=== PATIENT | male | born 1950 | race Caucasian/White ===

== ENCOUNTER 2017-03-14 13:32 | Inpatient (IN) | payer SELFPAY ==
[~2017-03-14] VITALS: Ht 165.1 cm; Wt 112.7 kg
[2017-03-14] MEDS ORDERED: [UNRECOGNIZED DRUG - OTHER] (13:52)
[2017-03-14] MEDS ORDERED: NS 500 ML IV ONE (14:45)
[2017-03-14] MEDS ORDERED: KETOROLAC 30 MG/ML VIAL (J1885) IV ONE (14:45)
[2017-03-14] MEDS ORDERED: GASTROGRAFIN SOLUTION 30ML (Q9963) PO ONE (15:00)
[2017-03-14 15:09] LABS: BASO % 0.2 % (0.0-1.0); EOS % 0.4 % (0.0-3.0); LARGE UNSTAINED CELL # 0.1 K/mm3 (0.0-0.4); LYMPH # 0.7 K/mm3 (1.5-4.5); LYMPH % 8.4 % (24.0-44.0); MEAN CORPUSCULAR HEMOGLOBIN 29.4 pg (27.0-33.0); MEAN CORPUSCULAR HGB CONC 34.5 g/dl (32.0-36.5); MEAN CORPUSCULAR VOLUME 85.2 fl (80.0-96.0); MONO # 0.2 K/mm3 (0.0-0.8); MONO % 2.6 % (0.0-5.0); NEUTROPHILS # 7.4 K/mm3 (1.8-7.7); NEUTROPHILS % 87.4 % (36.0-66.0); PLATELET COUNT, AUTOMATED 170 k/mm3 (150-450); RED CELL DISTRIBUTION WIDTH 12.5 % (11.5-14.5); WHITE BLOOD COUNT 8.5 K/mm3 (4.0-10.0)
[2017-03-14] MEDS ORDERED: GASTROGRAFIN SOLUTION 30ML PO ONE (15:30)
[2017-03-14 15:34] LABS: ALBUMIN 3.5 GM/DL (3.2-5.2); ALBUMIN/GLOBULIN RATIO 0.83 (1.00-1.93); ALKALINE PHOSPHATASE 77 U/L (45-117); ALT/SGPT 24 U/L (12-78); AMYLASE 48 U/L (25-115); ANION GAP 7 MEQ/L (8-16); AST/SGOT 16 U/L (15-37); BILIRUBIN,DIRECT 0.1 MG/DL (0.0-0.2); BILIRUBIN,TOTAL 0.4 MG/DL (0.2-1.0); BLOOD UREA NITROGEN 11 MG/DL (7-18); CALCIUM LEVEL 8.7 MG/DL (8.8-10.2); CARBON DIOXIDE LEVEL 24 MEQ/L (21-32); CHLORIDE LEVEL 110 MEQ/L (98-107); CREATININE FOR GFR 0.97 MG/DL (0.70-1.30); GLOMERULAR FILTRATION RATE > 60.0 (>49); GLUCOSE, FASTING 161 MG/DL (80-110); POTASSIUM SERUM 3.7 MEQ/L (3.5-5.1); SODIUM LEVEL 141 MEQ/L (136-145); TOTAL PROTEIN 7.7 GM/DL (6.4-8.2)
[2017-03-14] MEDS ORDERED: MORPHINE 4 MG/ML 1ML SYRINGE IV ONE (18:15)
[2017-03-14] MEDS ORDERED: NORCO, ANEXSIA 5/325MG TABLET (HYDROcodone/ACETAMINOPHEN) PO PRN ×2 (19:00)
[2017-03-14] MEDS ORDERED: MORPHINE 4 MG/ML 1ML SYRINGE IV PRN (19:00)
[2017-03-14] MEDS ORDERED: ACETAMINOPHEN TAB 650MG DOSE (2X325MG) PO PRN (19:00)
[2017-03-14] MEDS ORDERED: ONDANSETRON 4MG/2ML VIAL (J2405) IV PRN (19:00)
--- NOTE | 2017-03-14 19:30 | REPUSA ---
Clinical history: gallstones. Findings: The pancreas is limited in visualization secondary to overlying bowel gas, but appears nick sly unremarkable. The liver demonstrates increased echotexture and echogenicity, with no mass lesions . The gallbladder contains echogenic shadowing foci in the neck of the gallbladder. There is no gallb ladder wall thickening. There is a positive Oliveira's sign. The common bile duct measures 8 mm. The ri ght kidney measures 12.5 cm in length and is unremarkable. There is no ascites. Impression: 1. Cholelithiasis. Positive Oliveira's sign. No evidence of gallbladder wall thickening, but there is b iliary ductal dilatation. The findings are suspicious for acute cholecystitis.
[2017-03-14] MEDS ORDERED: metroNIDAZOLE 500 MG in APPROPRIATE DILUENT 1 EA IV SCH (20:00)
[2017-03-14 20:30] VITALS: BP 210/100
[2017-03-14] MEDS ORDERED: ENOXAPARIN 40 MG/0.4 ML SYRINGE (J1650) SC SCH (21:00)
[2017-03-14] MEDS ORDERED: PANTOPRAZOLE 40MG INJ (PROTONIX) (C9113) IV SCH (21:00)
[2017-03-14] MEDS: SENOKOT S TAB PO SCH (21:00)
[2017-03-14] MEDS: LR 1,000 ML IV SCH (21:29)
[2017-03-14] MEDS: CIPROFLOXACIN 400 MG in APPROPRIATE DILUENT 1 EA IV SCH (21:30)
[2017-03-14] MEDS: metroNIDAZOLE 500 MG in APPROPRIATE DILUENT 1 EA IV SCH (23:09)
[2017-03-15 00:11] VITALS: BP 150/80
[2017-03-15] MEDS: LR 1,000 ML IV SCH ×2 (05:23→11:30)
[2017-03-15 06:00] VITALS: BP 134/60
[2017-03-15] MEDS: metroNIDAZOLE 500 MG in APPROPRIATE DILUENT 1 EA IV SCH ×2 (06:26→15:40)
[2017-03-15 08:35] LABS: BASO % 0.3 % (0.0-1.0); EOS # 0.1 K/mm3 (0.0-0.50); EOS % 1.5 % (0.0-3.0); LARGE UNSTAINED CELL # 0.2 K/mm3 (0.0-0.4); LARGE UNSTAINED CELL % 2.6 % (0.0-4.0); LYMPH # 1.6 K/mm3 (1.5-4.5); LYMPH % 21.4 % (24.0-44.0); MEAN CORPUSCULAR HEMOGLOBIN 29.4 pg (27.0-33.0); MEAN CORPUSCULAR HGB CONC 34.6 g/dl (32.0-36.5); MEAN CORPUSCULAR VOLUME 84.9 fl (80.0-96.0); MONO # 0.5 K/mm3 (0.0-0.8); MONO % 7.6 % (0.0-5.0); NEUTROPHILS # 4.5 K/mm3 (1.8-7.7); NEUTROPHILS % 66.8 % (36.0-66.0); PLATELET COUNT, AUTOMATED 145 k/mm3 (150-450); RED CELL DISTRIBUTION WIDTH 12.9 % (11.5-14.5)
[2017-03-15 08:51] LABS: ALBUMIN 2.9 GM/DL (3.2-5.2); ALBUMIN/GLOBULIN RATIO 0.78 (1.00-1.93); ALKALINE PHOSPHATASE 64 U/L (45-117); ALT/SGPT 22 U/L (12-78); ANION GAP 7 MEQ/L (8-16); AST/SGOT 16 U/L (15-37); BLOOD UREA NITROGEN 10 MG/DL (7-18); CARBON DIOXIDE LEVEL 27 MEQ/L (21-32); CHLORIDE LEVEL 110 MEQ/L (98-107); CREATININE FOR GFR 0.87 MG/DL (0.70-1.30); GLOMERULAR FILTRATION RATE > 60.0 (>49); GLUCOSE, FASTING 95 MG/DL (80-110); POTASSIUM SERUM 4.3 MEQ/L (3.5-5.1); SODIUM LEVEL 144 MEQ/L (136-145); TOTAL PROTEIN 6.6 GM/DL (6.4-8.2)
[2017-03-15 09:00] LABS: WHITE BLOOD COUNT 6.7 K/mm3 (4.0-10.0)
[2017-03-15] MEDS: SENOKOT S TAB PO SCH (09:37)
--- NOTE | 2017-03-15 09:54 | HPEPDOC ---
General Surgery H&P Date of Admission Mar 14, 2017 at 18:59 History and Physical CHIEF COMPLAINT: Periumbilical, right sided abdominal pain HISTORY OF PRESENT ILLNESS: Patient is admitted after presentation to the emergency room with right-sided, right lower quadrant, periumbilical pain and discomfort that started Wednesday evening, early Wednesday morning. He reports he has had several of this intermittent episodes which she thought was from his appendix. This would usually go away after couple hours. This particular episode was more severe and did not Manner after couple hours does he went to the emergency room. He denies fevers or chills. Reports 1 episode of vomiting in the morning. In the ER he was evaluated and was found evidence for gallstones possibly cholecystitis and subsequently admitted to my service. ALLERGIES: Please see below. HOME MEDICATIONS: Please see below. PAST MEDICAL HISTORY: Coronary artery disease status post cardiac stents PAST SURGICAL HISTORY: Cardiac stents PERSONAL/SOCIAL HISTORY: Denies smoking, alcohol use, or recreational drug use. REVIEW OF SYSTEMS: GENERAL: Denies chills, fatigue, fever, weight gain and weight loss. HEENT: Denies blurred vision and double vision. Denies ear symptoms. Denies hoarseness. NECK: Denies any neck pain. CARDIOVASCULAR: Denies chest pain and palpitations. MUSCULOSKELETAL: Denies arthralgias, back pain and thrombophlebitis. SKIN: Denies rash. NEUROLOGIC: Denies headache, stroke and transient ischemic attack. PSYCHIATRIC: Denies anxiety and depression. ENDOCRINE: Denies thyroid disease. HEMATOLOGY/ONCOLOGY: Denies any bleeding or clotting disorder. HEART: Denies any chest pains, palpitations, paroxysmal dyspnea, orthopnea. PULMONARY: Denies chronic cough, dyspnea and wheezing. GASTROINTESTINAL: Reports intermittent periumbilical discomfort GENITOURINARY: Denies dysuria, frequency, hematuria and nocturia. ENDOCRINE: Denies polydipsia, polyphagia, polyuria, heat or cold intolerance. INFECTIOUS: Denies any recent upper respiratory tract infection, UTI, need for use of antibiotics. NUTRITION: Reports good appetite. PHYSICAL EXAMINATION: VITAL SIGNS: Please see below. GENERAL APPEARANCE: Patient seen at bedside, appears comfortable. Awake, alert, oriented. HEENT: Normocephalic, atraumatic. Rachel palpebral conjunctivae. Anicteric sclerae. Lips moist. CHEST: No chest wall abnormalities. Normal respiratory motion/effort. NECK: Supple. No thyromegaly. No lymphadenopathies. LUNGS: Lung sounds are clear to auscultation bilaterally. No wheezing appreciated. HEART: No chest wall abnormalities. Heart rate and rhythm are regular with no murmurs. ABDOMEN: Abdomen is obese, soft, slightly rounded. No hepatosplenomegaly. No umbilical or groin herniations, nondistended. No noticeable rebound or guarding. No grimacing with palpation. No rebound tenderness. No masses appreciated. SKIN: Warm, moist. EXTREMITIES: Extremities have no deformities. No edema identified. NEUROLOGICAL: . ANCILLARIES: . LABORATORY DATA: Please see below. MICROBIOLOGY: Please see below. IMAGING: . CT abdomen and pelvis 1. Large densely calcified gallstones. 2. Mild fatty infiltration of the liver. 3. Right inguinal hernia containing abdominal fat. 4. No other significant abnormality. Ultrasound right upper quadrant Cholelithiasis. Positive Oliveira's sign. No evidence of gallbladder wall thickening, but there is biliary ductal dilatation. The findings are suspicious for acute cholecystitis. IMPRESSION AND PLAN: . Cholelithiasis probably severe biliary colic versus early acute cholecystitis Patient symptoms most pronounced over the periumbilical right lower quadrant area which is not usual for gallbladder colic attacks but only abnormality on the imaging studies are that of the presence of gallstones on CT, positive sonographic Oliveira sign on ultrasound which is about 90% specific for gallbladder wall inflammation or cholecystitis. His labs are normal. Repeat labs in the morning are also normal. Discussed with him his options which includes continued antibiotics and cholecystectomy this admission versus interval cholecystectomy. More likely given the size of the stones he will continue to be symptomatic and he is already given the history of previous colic -like attacks. He is convinced of the distance from his appendix and would also like to have his appendix removed at the same time. I don't think this is going to be a contraindication and we should be able to technically do this right after performing the cholecystectomy it all depends on how inflamed the gallbladder as during her surgery. Consent was obtained from the patient after full discussion of the risks and benefits of doing the surgery. Vital Signs Vital Signs Date Time Temp Pulse Resp B/P (MAP) Pulse Ox O2 Delivery O2 Flow Rate FiO2 03/15/17 06:00 98.9 69 18 134/60 (84) 99 Room Air I&Os I&O- Last 24 Hours up to 6 AM 03/15/17 06:00 Intake Total 0 ml Output Total 400 ml Balance -400 ml Laboratory Data Labs 24H Laboratory Tests 2 03/14/17 14:59: White Blood Count 8.5, Red Blood Count 5.51, Hemoglobin 16.2, Hematocrit 46.9, Mean Corpuscular Volume 85.2, Mean Corpuscular Hemoglobin 29.4, Mean Corpuscular Hemoglobin Concent 34.5, Red Cell Distribution Width 12.5, Platelet Count 170, Neutrophils (%) (Auto) 87.4H, Lymphocytes (%) (Auto) 8.4L, Monocytes (%) (Auto) 2.6, Eosinophils (%) (Auto) 0.4, Basophils (%) (Auto) 0.2, Neutrophils # (Auto) 7.4, Lymphocytes # (Auto) 0.7L, Monocytes # (Auto) 0.2, Eosinophils # (Auto) 0.0, Basophils # (Auto) 0.0, Large Unclassified Cells % 1.0 , Large Unclassified Cells # 0.1, Anion Gap 7L, Glomerular Filtration Rate > 60.0, Lactic Acid Level 1.9, Calcium Level 8.7L, Aspartate Amino Transf (AST/ SGOT) 16, Alanine Aminotransferase (ALT/SGPT) 24, Alkaline Phosphatase 77, Total Bilirubin 0.4, Direct Bilirubin 0.1, Total Protein 7.7, Albumin 3.5, Albumin/Globulin Ratio 0.83L, Amylase Level 48, Lipase 82 03/14/17 16:09: Urine Appearance HAZY, Urine Color YELLOW, Urine pH 5.0, Urine Specific [place] 1.026, Urine Protein 1+H, Urine Glucose (UA) 1+H, Urine Ketones TRACEH, Urine Urobilinogen 0.2, Urine Bilirubin NEGATIVE, Urine Leukocyte Esterase NEGATIVE, Urine Blood NEGATIVE, Urine Nitrite NEGATIVE, Urine WBC (Auto) 2, Urine RBC ( Auto) 2, Urine Hyaline Casts (Auto) 1, Urine Bacteria (Auto) NEGATIVE, Urine Squamous Epithelial Cells 0, Urine Amorphous Sediment SMALLH, Urine Mucus (Auto ) SMALL, Urine Sperm (Auto) 03/15/17 08:16: White Blood Count 6.7, Red Blood Count 4.62, Hemoglobin 13.6#L, Hematocrit 39.2L , Mean Corpuscular Volume 84.9, Mean Corpuscular Hemoglobin 29.4, Mean Corpuscular Hemoglobin Concent 34.6, Red Cell Distribution Width 12.9, Platelet Count 145L, Neutrophils (%) (Auto) 66.8H, Lymphocytes (%) (Auto) 21.4L, Monocytes (%) (Auto) 7.6H, Eosinophils (%) (Auto) 1.5, Basophils (%) (Auto) 0.3 , Neutrophils # (Auto) 4.5, Lymphocytes # (Auto) 1.6, Monocytes # (Auto) 0.5, Eosinophils # (Auto) 0.1, Basophils # (Auto) 0.0, Large Unclassified Cells % 2.6 , Large Unclassified Cells # 0.2, Anion Gap 7L, Glomerular Filtration Rate > 60.0, Calcium Level 8.0L, Aspartate Amino Transf (AST/SGOT) 16, Alanine Aminotransferase (ALT/SGPT) 22, Alkaline Phosphatase 64, Total Bilirubin 1.0#, Total Protein 6.6, Albumin 2.9L, Albumin/Globulin Ratio 0.78L, Blood Urea Nitrogen 10, Creatinine 0.87, Sodium Level 144, Potassium Level 4.3, Chloride Level 110H, Carbon Dioxide Level 27 CBC/BMP Laboratory Tests 03/14/17 14:59 Red Blood Count 5.51, Mean Corpuscular Volume 85.2, Mean Corpuscular Hemoglobin 29.4, Mean Corpuscular Hemoglobin Concent 34.5, Red Cell Distribution Width 12.5 , Neutrophils (%) (Auto) 87.4 H, Lymphocytes (%) (Auto) 8.4 L, Monocytes (%) ( Auto) 2.6, Eosinophils (%) (Auto) 0.4, Basophils (%) (Auto) 0.2, Neutrophils # ( Auto) 7.4, Lymphocytes # (Auto) 0.7 L, Monocytes # (Auto) 0.2, Eosinophils # ( Auto) 0.0, Basophils # (Auto) 0.0 03/15/17 08:16 Red Blood Count 4.62, Mean Corpuscular Volume 84.9, Mean Corpuscular Hemoglobin 29.4, Mean Corpuscular Hemoglobin Concent 34.6, Red Cell Distribution Width 12.9 , Neutrophils (%) (Auto) 66.8 H, Lymphocytes (%) (Auto) 21.4 L, Monocytes (%) ( Auto) 7.6 H, Eosinophils (%) (Auto) 1.5, Basophils (%) (Auto) 0.3, Neutrophils # (Auto) 4.5, Lymphocytes # (Auto) 1.6, Monocytes # (Auto) 0.5, Eosinophils # ( Auto) 0.1, Basophils # (Auto) 0.0, Calcium Level 8.0 L, Aspartate Amino Transf ( AST/SGOT) 16, Alanine Aminotransferase (ALT/SGPT) 22, Alkaline Phosphatase 64, Total Bilirubin 1.0 #, Total Protein 6.6, Albumin 2.9 L Microbiology Microbiology 03/14/17 Urine Culture, Received Pending Home Medications Scheduled Ciprofloxacin (Cipro) 500 Mg/5 Ml Asha, 500 MG PO BID Metronidazole (Flagyl) 500 Mg Tab, 500 MG PO Q8H FOR 10 DAYS Allergies Coded Allergies: Penicillins (Verified Allergy, Unknown, 03/14/17) IRAM HADDAD MD Mar 15, 2017 09:54
[2017-03-15] MEDS: CIPROFLOXACIN 400 MG in APPROPRIATE DILUENT 1 EA IV SCH (10:27)
--- NOTE | 2017-03-15 11:47 | REP ---
CT abdomen and pelvis without IV but with oral contrast: History: Right lateral abdominal pain. No comparison imaging. Findings: Digital porcelain slusher radiographs show no abnormality. The lung bases show no evidence of infiltrate. There is mild diffuse fatty infiltration of the liver. There are large laminated calcified gallstones in the gallbladder. Two gallstones are seen measuring 2.8 and 3.1 cm in greatest diameter respectively. No pancreatic abnormality is seen. No adrenal lesion is observed. The kidneys are morphologically intact. No retroperitoneal mass or adenopathy is seen. Small and large intestinal bowel loops are normal in the abdomen. There is a right inguinal hernia transmitting abdominal fat. No other abdominal wall defect is seen. There are dystrophic calcifications in the prostate gland. Urinary bladder and seminal vesicles are unremarkable. There is some vascular calcification. Impression: 1. Large densely calcified gallstones. 2. Mild fatty infiltration of the liver. 3. Right inguinal hernia containing abdominal fat. 4. No other significant abnormality. Signed by Ryley Holguin MD 03/15/2017 12:36 P
--- NOTE | 2017-03-15 12:57 | ECGEPIP ---
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
[2017-03-15] MEDS ORDERED: LIDOCAINE 1% SDV INJ 30 ML VIAL As Ordered ONE (16:54)
[2017-03-15] MEDS ORDERED: BUPIVACAINE HCL 0.25% 30 ML VIAL As Ordered ONE (16:54)
[2017-03-15] MEDS ORDERED: fentaNYL 250 MCG/5 ML INJECTION (J3010) As Ordered ONE (17:08)
[2017-03-15] MEDS ORDERED: dexameTHASONE 4 MG/ML 1ML VIAL (J1100) As Ordered ONE (17:08)
[2017-03-15] MEDS ORDERED: PROPOFOL 200 MG/20 ML VIAL As Ordered ONE (17:08)
[2017-03-15] MEDS ORDERED: MIDAZOLAM INJ 2 MG/2 ML VIAL (J2250) As Ordered ONE (17:08)
[2017-03-15] MEDS ORDERED: ROCURONIUM BROMIDE 50 MG/5 ML VIAL/SYRINGE As Ordered ONE (17:08)
[2017-03-15] MEDS ORDERED: ONDANSETRON 4MG/2ML VIAL (J2405) As Ordered ONE (17:08)
[2017-03-15] MEDS ORDERED: LIDOCAINE 2% INJ 100 MG/5 ML SDV (FOR ANES.) As Ordered ONE (17:08)
[2017-03-15] MEDS ORDERED: CIPR500S PO (18:08)
[2017-03-15] MEDS ORDERED: FLAG500T PO (18:09)
--- NOTE | 2017-04-06 22:33 | DS.PDOC ---
Discharge Summary General Date of Admission Mar 14, 2017 at 18:59 Date of Discharge 03/15/2017 Attending Physician: IRAM HADDAD MD Discharge Summary PROCEDURES PERFORMED DURING STAY: None. ADMITTING DIAGNOSES: 1. Acute cholecystitis 2. Coronary artery disease status post GA DISCHARGE DIAGNOSES: 1. Acute cholecystitis improved 2 coronary artery disease status post GA COMPLICATIONS/CHIEF COMPLAINT: Acute Cholecystitis. HISTORY OF PRESENT ILLNESS: Patient admitted for right upper quadrant, epigastric pain. He was found to have evidence for acute cholecystitis. HOSPITAL COURSE: Patient was admitted under my service. He was started on IV antibiotics. He is symptoms did improve overnight and was fairly asymptomatic by the morning. We discussed his options which includes cholecystectomy during this admission. He is convinced that it was his appendix that is giving him his problem and he also wanted his appendix out. He agreed to undergo surgery. Patient has significant prior history of GA, stent placement. He apparently took himself of his aspirin and Plavix on his own accord. He is fairly asymptomatic now. Preoperative EKG was done showing old septal myocardial infarction, moderate T-wave abnormality. He was brought to the preoperative holding area and was examined by anesthesia. Due to the history of GA and the EKG changes, anesthesia discussed the situation with the that they would prefer a cardiology consult as this does not seem to be an emergent need to undergo surgery for now. I discussed this with the patient. I offered to send the patient for outpatient cardiology consult if he wished to have his gallbladder removed at some point. Since he is already asymptomatic, he is discharged home on oral antibiotics to complete a 14 day course. On discharge patient is improved. He is not sure if he wants to have cholecystectomy as an lifestyle block farmer procedure. He was advised the possibility of recurrence of his symptoms. DISCHARGE MEDICATIONS: Please see below. ALLERGIES: Please see below. PHYSICAL EXAMINATION ON DISCHARGE: VITAL SIGNS: Please see below. GENERAL: Comfortable HEENT: Been palpebral conjunctiva, lips and mucosa moist NECK: No jugular venous distention CARDIOVASCULAR EXAMINATION: Regular heart rate and rhythm RESPIRATORY EXAMINATION: Clear breath sounds bilaterally ABDOMINAL EXAMINATION: Obese, soft, nondistended, nontender and palpation EXTREMITIES: No edema SKIN: And no skin rashes NEUROLOGICAL EXAMINATION: Awake, alert, oriented PSYCHIATRIC EXAMINATION: Mood and affect are normal LABORATORY DATA: Please see below. IMAGING: CT abdomen and pelvis and gallbladder ultrasound PROGNOSIS: Good ACTIVITY: As tolerated. DIET: Low-fat diet. DISCHARGE PLAN: Patient discharged to home. He was given my office number to call for follow-up appointment in 2 weeks for consideration for interval cholecystectomy in outpatient cardiology referral for medical clearance and optimization DISPOSITION: 01 Home, Self-Care. DISCHARGE INSTRUCTIONS: Complete 2 week antibiotic course Follow up in clinic DISCHARGE CONDITION: Stable. TIME SPENT ON DISCHARGE: Greater than 30 minutes. Discharge Medications Scheduled Ciprofloxacin (Cipro) 500 Mg/5 Ml Asha, 500 MG PO BID Metronidazole (Flagyl) 500 Mg Tab, 500 MG PO Q8H FOR 10 DAYS Allergies Coded Allergies: Penicillins (Verified Allergy, Unknown, 03/14/17) IRAM HADDAD MD Apr 06, 2017 22:33
== END 2017-03-15 19:13 | disposition home or self-care (01) ==
LOC: M ED 13:32 → M ED INP 18:59 → M MS5PR 20:30 → M MSPAV 03-15 17:05
PROVIDERS: ADMIT Surgery; ATTEND Surgery
DX: K81.0 Acute cholecystitis (principal); K76.0 Fatty (change of) liver, not elsewhere classified; I25.10 Atherosclerotic heart disease of native coronary artery without angina pectoris; I25.2 Old myocardial infarction; Z88.0 Allergy status to penicillin; K40.90 Unilateral inguinal hernia, without obstruction or gangrene, not specified as recurrent

== ENCOUNTER 2017-12-14 13:50 | Emergency (ER) | payer SELFPAY ==
[2017-12-14 15:30] LABS: BASO % 0.5 % (0.0-1.0); HEMATOCRIT 40.9 % (42.0-52.0); IMMATURE GRANULOCYTE % 0.3 % (0-3.0); LYMPH # 1.9 10^3/uL (1.5-4.5); LYMPH % 30.4 % (24.0-44.0); MEAN CORPUSCULAR HEMOGLOBIN 29.1 pg (27.0-33.0); MEAN CORPUSCULAR HGB CONC 34.2 g/dl (32.0-36.5); MONO # 0.6 10^3/uL (0.0-0.8); MONO % 9.4 % (0.0-5.0); NEUTROPHILS # 3.7 10^3/uL (1.8-7.7); NEUTROPHILS % 59.4 % (36.0-66.0); PLATELET COUNT, AUTOMATED 167 10^3/uL (150-450); RED BLOOD COUNT 4.81 10^6/uL (4.30-6.10); RED CELL DISTRIBUTION WIDTH 13.1 % (11.5-14.5); WHITE BLOOD COUNT 6.2 10^3/uL (4.0-10.0)
[2017-12-14 15:32] LABS: VENOUS BASE EXCESS 1.8 (-2.0-2.0); VENOUS HCO3 27.1 MEQ/L (23.0-27.0); VENOUS PARTIAL PRESSURE CO2 44.9 mmHg (38.0-50.0); VENOUS PH 7.399 UNITS (7.330-7.430); VENOUS STANDARD HCO3 25.8 MEQ/L; VENOUS TOTAL CO2 28.5 MEQ/L (24.0-28.0)
[2017-12-14] MEDS: NS 1,000 ML IV (15:39)
[2017-12-14 15:54] LABS: ALBUMIN 3.3 GM/DL (3.2-5.2); ALBUMIN/GLOBULIN RATIO 0.97 (1.00-1.93); ALKALINE PHOSPHATASE 60 U/L (45-117); ALT/SGPT 28 U/L (12-78); ANION GAP 7 MEQ/L (8-16); AST/SGOT 18 U/L (7-37); BILIRUBIN,DIRECT 0.1 MG/DL (0.0-0.2); BILIRUBIN,TOTAL 0.3 MG/DL (0.2-1.0); BLOOD UREA NITROGEN 14 MG/DL (7-18); CALCIUM LEVEL 8.4 MG/DL (8.8-10.2); CARBON DIOXIDE LEVEL 27 MEQ/L (21-32); CHLORIDE LEVEL 109 MEQ/L (98-107); CPK CREATINE PHOSPHOKINASE 97 U/L (39-308); CREATININE FOR GFR 0.87 MG/DL (0.70-1.30); GLOMERULAR FILTRATION RATE > 60.0 (>49); GLUCOSE, FASTING 106 MG/DL (70-100); LIPASE 85 U/L (73-393); POTASSIUM SERUM 3.9 MEQ/L (3.5-5.1); SODIUM LEVEL 143 MEQ/L (136-145); TOTAL PROTEIN 6.7 GM/DL (6.4-8.2); TROPONIN I 0.02 NG/ML (< 0.10)
[2017-12-14 16:00] LABS: CK-MB VALUE MASS 2.7 NG/ML (<3.6); MB/CK RELATIVE INDEX 2.78 (< OR =4); NT-PRO BNP 1667 PG/ML (<125); THYROID STIMULATING HORMONE 0.723 uIU/ML (0.358-3.740)
== END 2017-12-14 18:34 | disposition home or self-care (01) ==
LOC: M ED 13:50
DX: I50.9 Heart failure, unspecified (principal); R94.31 Abnormal electrocardiogram [ECG] [EKG]; I25.2 Old myocardial infarction; I11.0 Hypertensive heart disease with heart failure; M54.30 Sciatica, unspecified side; Z87.19 Personal history of other diseases of the digestive system; Z98.890 Other specified postprocedural states; Z87.891 Personal history of nicotine dependence; Z88.0 Allergy status to penicillin
CPT/HCPCS: 71046

== ENCOUNTER 2018-07-29 15:38 | Inpatient (IN) | payer SELFPAY ==
[~2018-07-29] VITALS: Ht 170.2 cm; Wt 108.6 kg
[~2018-07-29 15:38] MED LIST: CIPR500S PO; CO Q10CA PO; FLAG500T PO; LASI20TA3 PO; ST J150T PO; UBIQ100C3 PO; VITA400C35 PO; [UNRECOGNIZED DRUG - OTHER]; [UNRECOGNIZED DRUG - OTHER]; [UNRECOGNIZED DRUG - OTHER] PO; [UNRECOGNIZED DRUG - OTHER] PO
[2018-07-29 16:33] LABS: BASO % 0.5 % (0.0-1.0); HEMATOCRIT 42.1 % (42.0-52.0); HEMOGLOBIN 14.3 g/dl (13.5-17.5); LYMPH # 2.3 10^3/uL (1.5-4.5); LYMPH % 41.2 % (24.0-44.0); MEAN CORPUSCULAR HEMOGLOBIN 29.1 pg (27.0-33.0); MEAN CORPUSCULAR VOLUME 85.6 fl (80.0-96.0); MONO # 0.6 10^3/uL (0.0-0.8); MONO % 11.4 % (0.0-5.0); NEUTROPHILS # 2.6 10^3/uL (1.8-7.7); NEUTROPHILS % 46.7 % (36.0-66.0); PLATELET COUNT, AUTOMATED 162 10^3/uL (150-450); RED BLOOD COUNT 4.92 10^6/uL (4.30-6.10); WHITE BLOOD COUNT 5.5 10^3/uL (4.0-10.0)
--- NOTE | 2018-07-29 16:46 | REP ---
Chest one-view HISTORY: Cough Comparison: 12/14/2017 The lungs are clear. The heart is normal in size. The pulmonary vasculature is normal in appearance. Impression: No acute disease. Electronically Signed by Masood Alcocer MD 07/29/2018 04:37 P
[2018-07-29 16:50] LABS: BLOOD UREA NITROGEN 17 MG/DL (7-18); CALCIUM LEVEL 8.8 MG/DL (8.8-10.2); CARBON DIOXIDE LEVEL 31 MEQ/L (21-32); CHLORIDE LEVEL 105 MEQ/L (98-107); CPK CREATINE PHOSPHOKINASE 146 U/L (39-308); GLOMERULAR FILTRATION RATE > 60.0 (>49); GLUCOSE, FASTING 110 MG/DL (70-100); MB/CK RELATIVE INDEX 1.92 (< OR =4); NT-PRO BNP 1311 PG/ML (<125); POTASSIUM SERUM 3.9 MEQ/L (3.5-5.1); SODIUM LEVEL 143 MEQ/L (136-145); TROPONIN I 0.02 NG/ML (< 0.10)
--- NOTE | 2018-07-29 17:18 | ECGEPIP ---
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
[2018-07-29] MEDS: IPRATROPIUM 0.5MG/ALBUTEROL 2.5MG INH SOL UD 3ML (DUONEB)(J7620) NEB SCH ×6 (18:52→20:36)
[2018-07-29] MEDS ORDERED: FUROSEMIDE 40 MG/4 ML VIAL (J1940) IV ONE (19:30)
[2018-07-29] MEDS ORDERED: methylPREDNISolone INJ 125 MG/2 ML VIAL (J2930) IV ONE (19:30)
[2018-07-29] MEDS: SYMBICORT 80/4.5MCG INHALER 6GM INH SCH (20:00)
[2018-07-29] MEDS ORDERED: [UNRECOGNIZED DRUG - OTHER] PO (21:37)
[2018-07-30] MEDS ORDERED: NORCO, ANEXSIA 5/325MG TABLET (HYDROcodone/ACETAMINOPHEN) PO PRN
[2018-07-30] MEDS ORDERED: PERCOCET 5MG/325MG TAB PO PRN
[2018-07-30] MEDS ORDERED: BISACODYL 5 MG TAB PO PRN
[2018-07-30] MEDS ORDERED: ACETAMINOPHEN TAB 650MG DOSE (2X325MG) PO PRN
[2018-07-30] MEDS ORDERED: IPRATROPIUM 0.02% SOLN 0.5MG/2.5 ML NEB NEB PRN (00:15)
[2018-07-30] MEDS: PANTOPRAZOLE 40MG TAB (PROTONIX) PO SCH ×2 (01:10→20:03)
[2018-07-30 01:35] VITALS: BP 141/101
[2018-07-30 04:00] VITALS: BP 122/85
[2018-07-30 06:10] LABS: ALBUMIN 3.2 GM/DL (3.2-5.2); BILIRUBIN,TOTAL 0.3 MG/DL (0.2-1.0); CALCIUM LEVEL 9.1 MG/DL (8.8-10.2); CREATININE FOR GFR 1.29 MG/DL (0.70-1.30); FREE THYROXINE INDEX 3.4 % (1.4-3.8); GLOMERULAR FILTRATION RATE 59.3 (>49); MAGNESIUM LEVEL 2.2 MG/DL (1.8-2.4); POTASSIUM SERUM 4.1 MEQ/L (3.5-5.1); THYROID STIMULATING HORMONE 0.338 uIU/ML (0.358-3.740); THYROXINE (T4) 9.3 UG/DL (4.5-12.0); TOTAL PROTEIN 7.3 GM/DL (6.4-8.2)
[2018-07-30 07:50] VITALS: BP 120/81
--- NOTE | 2018-07-30 07:54 | HPEPDOC ---
[facility] Medical History & Physical History and Physical CHIEF COMPLAINT: [ sob] HISTORY OF PRESENT ILLNESS: This is a 68 yo male with pmhx of CHF ( unknown EF), which he said he was told has resolved who presented to the ED for sob. Per patient he has been having sob mostly at night - when he is sleeping , would wake up gasping for air or feeling dizzy. He said he tried his cousin's oxygen at home and slept with it and felt much better the next day and was able to sleep through the night. Patient denied any fever, chills, chest pain, headache or palpitations. ROS - all 14 point review of system is negative except for whats listed in HPI Physical exam Gen: NAD, obese male HEENT: normocephalic , atraumatic, no discharge from ears or nose, no orop haryngeal erythema or exudate, neck is supple, no lymphadenopathy, trachea midline CVS: irreg rate and rhytm (130s), normal S1n S2, no murmurs, rubs, or gallops, no edema, no jvd Resp: LCTAB, no rhochi, wheezes or crackles Abd : soft nontender, normal bowel sounds, no rebound tenderness or guarding MSK: no swelling, full range of motion, strength 5/5 neuro: no focal deficit , AOAx3 psych: normal mood and affect vitals stable except for tachycardia, was saturating at 95% on room air when I saw him ekg - afib with rvr at 156bpm, initial ekg had st depression , but repeat ekg with rate of 77bpm,showed no ST//Twave abnormalities labs initial labs were unremarkable cxr - no acute process Assessment new onset afib ? chf ? 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 Phillip gupta and shanika ordered check hba1c and lipid profile dvt ppx - on lovenox DNR/DNI , from home, no svc Vital Signs Vital Signs Date Time Temp Pulse Resp B/P (MAP) Pulse Ox O2 Delivery O2 Flow Rate FiO2 07/30/18 05:55 105 122/85 07/30/18 04:00 99.1 20 94 Nasal Cannula 1.0 Laboratory Data Labs 24H Laboratory Tests 2 07/29/18 16:08: Immature Granulocyte % (Auto) 0.2, White Blood Count 5.5, Red Blood Count 4.92, Hemoglobin 14.3, Hematocrit 42.1, Mean Corpuscular Volume 85.6, Mean Corpuscular Hemoglobin 29.1, Mean Corpuscular Hemoglobin Concent 34.0, Red Cell Distribution Width 13.1, Platelet Count 162, Neutrophils (%) (Auto) 46.7, Lymphocytes (%) (Auto) 41.2, Monocytes (%) (Auto) 11.4H, Eosinophils (%) (Auto) 0.0, Basophils (%) (Auto) 0.5, Neutrophils # (Auto) 2.6, Lymphocytes # (Auto) 2.3, Monocytes # (Auto) 0.6, Eosinophils # (Auto) 0.0, Basophils # (Auto) 0.0, Nucleated Red Blood Cells % (auto) 0.0, Anion Gap 7L, Glomerular Filtration Rate > 60.0, Lactic Acid Level 1.6, Blood Urea Nitrogen 17, Creatinine 0.90, Sodium Level 143, Potassium Level 3.9, Chloride Level 105, Carbon Dioxide Level 31, Calcium Level 8.8, Total Creatine Kinase 146, Creatine Kinase MB 3.0, Creatine Kinase MB Relative Index 1.92, Troponin I 0.02, MA-Wbh-K-Type Natriuretic Peptide 1311H, Thyroid Stimulating Hormone (TSH) 1.000 07/30/18 05:04: Anion Gap 13, Glomerular Filtration Rate 59.3, Blood Urea Nitrogen 22H, Creatinine 1.29, Sodium Level 142, Potassium Level 4.1, Chloride Level 105, Carbon Dioxide Level 24, Calcium Level 9.1, Troponin I 0.04#, Thyroid Stimulating Hormone (TSH) 0.338L, Aspartate Amino Transf (AST/SGOT) 23, Alanine Aminotransferase (ALT/SGPT) 34, Alkaline Phosphatase 55, Total Bilirubin 0.3, Total Protein 7.3, Albumin 3.2, Magnesium Level 2.2, Albumin/Globulin Ratio 0.78L, Free Thyroxine Index 3.4, Thyroxine (T4) 9.3, Triiodothyronine (T3) Uptake 37 CBC/BMP Laboratory Tests 07/29/18 16:08 Red Blood Count 4.92, Mean Corpuscular Volume 85.6, Mean Corpuscular Hemoglobin 29.1, Mean Corpuscular Hemoglobin Concent 34.0, Red Cell Distribution Width 13.1, Neutrophils (%) (Auto) 46.7, Lymphocytes (%) (Auto) 41.2, Monocytes (%) (Auto) 11.4 H, Eosinophils (%) (Auto) 0.0, Basophils (%) (Auto) 0.5, Neutrophils # (Auto) 2.6, Lymphocytes # (Auto) 2.3, Monocytes # (Auto) 0.6, Eosinophils # (Auto) 0.0, Basophils # (Auto) 0.0, Calcium Level 8.8, Total Creatine Kinase 146 07/30/18 05:04 Calcium Level 9.1, Aspartate Amino Transf (AST/SGOT) 23, Alanine Aminotransferase (ALT/SGPT) 34, Alkaline Phosphatase 55, Total Bilirubin 0.3, Total Protein 7.3, Albumin 3.2 Microbiology Microbiology 07/29/18 Blood Culture, Received Pending 07/29/18 Blood Culture, Received Pending 07/29/18 Respiratory Virus Panel (PCR) (SANIYA) - Final, Complete Parainfluenza 3 (Piv3) Home Medications Scheduled (Ubiquinol) 100 Mg Cap, 100 MG PO TID Tocopheryl Acetate, Dl-Alpha (Vitamin E) 400 Unit Chw, 400 UNIT PO DAILY [intenzyme forte] , 2 TABS PO TID PATIENT STATES THIS IS A HERBAL BLOOD THINNER Allergies Coded Allergies: Penicillins (Verified Allergy, Unknown, 03/14/17) HENRY DIGGS MD Jul 30, 2018 07:49
--- NOTE | 2018-07-30 08:04 | ECGEPIP ---
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
[2018-07-30 08:15] LABS: CHOLESTEROL RISK RATIO 4.292 (<5)
--- NOTE | 2018-07-30 09:25 | IPNPDOC ---
Text Note Date of Service The patient was seen on 07/30/18. NOTE SUBJECTIVE: Patient was admitted overnight for shortness of breath mostly at n ight, during sleep, with gasping for air and feeling dizzy. He reported that his cousins oxygen was helping at .5 liters at night. On presentation EKG showed new unset A. Fib with RVR He was examined at bed side, he was accompanied by his family. He had no acute complains. Patient was afebrile overnight. He had elevated heart rate overnight, this morning his heart rate was 96 OBJECTIVE: PHYSICAL EXAMINATION: GENERAL APPEARANCE: Alert no acute distress. SKIN: Warm, well perfused. ENT: Neck supple, no thyromegaly THORAX: Symmetrical. LUNGS: Clear to auscultation bilaterally. HEART: Irregular rate, irregular rhythm, no murmurs, rubs or gallops ABDOMEN: Soft. No masses. Bowel sounds are present. EXTREMITIES: Moves all extremities equally. No gross deformities. PULSES: 2+ upper and lower extremity . LABORATORY DATA: Please see below. IMAGING: Chest Xray: 07/29/18: Impression: No acute disease. Micro: Positive for parainfluenza ASSEMENT AND PLAN: New unset Afib with RVR: Presented with an initial rate of 156. Patient was started on IV Cardizem, and transition to by mouth Cardizem at 60 mg every 6 hours. -Cardiology consulted -Echo pending -[id number] of 3 -Heart rate better controlled Questionable SYDNEE -SYDNEE protocol -Nocturnal pulse oximetry Anticoagulation: -Lovenox 1 mg/kg (110 mg) VS,Fishbone, I+O VS, Fishbone, I+O Laboratory Tests 07/29/18 16:08 Red Blood Count 4.92, Mean Corpuscular Volume 85.6, Mean Corpuscular Hemoglobin 29.1, Mean Corpuscular Hemoglobin Concent 34.0, Red Cell Distribution Width 13.1, Neutrophils (%) (Auto) 46.7, Lymphocytes (%) (Auto) 41.2, Monocytes (%) (Auto) 11.4 H, Eosinophils (%) (Auto) 0.0, Basophils (%) (Auto) 0.5, Neutrophils # (Auto) 2.6, Lymphocytes # (Auto) 2.3, Monocytes # (Auto) 0.6, Eosinophils # (Auto) 0.0, Basophils # (Auto) 0.0, Calcium Level 8.8, Total Creatine Kinase 146 07/30/18 05:04 Calcium Level 9.1, Aspartate Amino Transf (AST/SGOT) 23, Alanine Aminotransferase (ALT/SGPT) 34, Alkaline Phosphatase 55, Total Bilirubin 0.3, Total Protein 7.3, Albumin 3.2 Vital Signs Date Time Temp Pulse Resp B/P (MAP) Pulse Ox O2 Delivery O2 Flow Rate FiO2 07/30/18 07:50 97.8 96 19 120/81 (94) 96 Nasal Cannula 1.0 I&O- Last 24 Hours up to 6 AM 07/30/18 05:59 Intake Total 0 ml Output Total 1000 ml Balance -1000 ml GME ATTESTATION GME ATTESTATION My faculty preceptor for this patient encounter was physically present during the encounter and was fully available. All aspects of the patient interview, examination, medical decision making process, and medical care plan development were reviewed and approved by the faculty preceptor. The faculty preceptor is aware and concurs with the plan as stated in the body of this note and will attest to such by his/her cosignature. ASHANTI PALACIOS DO Jul 30, 2018 09:25
[2018-07-30 09:42] LABS: HEMOGLOBIN A1c 5.5 %
[2018-07-30] MEDS: ENOXAPARIN 120 MG/0.8 ML SYR (J1650) SC SCH ×2 (10:48→20:02)
[2018-07-30] MEDS: SYMBICORT 80/4.5MCG INHALER 6GM INH SCH ×2 (11:27→20:00)
[2018-07-30 12:14] VITALS: BP 110/80
[2018-07-30 14:39] LABS: MB/CK RELATIVE INDEX 2.41 (< OR =4); TROPONIN I 0.03 NG/ML (< 0.10)
[2018-07-30 16:00] VITALS: BP 132/74
[2018-07-30] MEDS: ASPIRIN 81 MG ENTERIC TAB PO SCH (16:42)
[2018-07-30] MEDS ORDERED: ATORVASTATIN 10 MG TAB PO SCH (18:00)
[2018-07-30 20:00] VITALS: BP 129/70
[2018-07-30] MEDS: METOPROLOL TART 25 MG TABLET PO SCH (22:00)
[2018-07-30] MEDS ORDERED: LOPERAMIDE 2 MG CAP PO ONE (23:00)
[2018-07-31] VITALS: BP 121/81
[2018-07-31 04:50] VITALS: BP 128/70
[2018-07-31] MEDS: METOPROLOL TART 25 MG TABLET PO SCH ×2 (05:15→14:03)
[2018-07-31 06:14] LABS: ALBUMIN 3.1 GM/DL (3.2-5.2); ALT/SGPT 29 U/L (12-78); BILIRUBIN,TOTAL 0.2 MG/DL (0.2-1.0); BLOOD UREA NITROGEN 27 MG/DL (7-18); CARBON DIOXIDE LEVEL 25 MEQ/L (21-32); CHLORIDE LEVEL 108 MEQ/L (98-107); CREATININE FOR GFR 0.94 MG/DL (0.70-1.30); GLOMERULAR FILTRATION RATE > 60.0 (>49); GLUCOSE, FASTING 119 MG/DL (70-100); POTASSIUM SERUM 3.4 MEQ/L (3.5-5.1); SODIUM LEVEL 142 MEQ/L (136-145); TOTAL PROTEIN 7.2 GM/DL (6.4-8.2)
--- NOTE | 2018-07-31 07:57 | ECHO ---
DATE OF SERVICE: 07/30/2018 REFERRING PROVIDER: Dr. Yari Suárez PATIENT LOCATION: Room 3222 REASON FOR ECHOCARDIOGRAM: Shortness of breath, newly diagnosed atrial fibrillation. 2D MEASUREMENTS: IVS: 1.0 cm LV: 6.5 cm LVPW: 1.0 cm LA: 4.7 cm Aorta: 2.8 cm IVC: 2.0 cm DOPPLER MEASUREMENTS: Peak velocity across the aortic valve: 1.7 m/s Mitral E: 1.0 Maximum tricuspid valve velocity: 2.9 m/s 2D COMMENTS: 1. Normal left ventricular size with mildly enlarged left ventricle with mildly to moderately enlarged left ventricle and a depressed global left ventricular systolic function. The anterior septum appeared to be moderately to severely hypokinetic. The estimated global left ventricular systolic ejection fraction is about 35-40%. 2. Mildly enlarged left atrium. Normal right atrium and right ventricle. 3. The atrial septum appeared to be normal without evidence of defect or shunt. 4. Normal aortic root. 5. No pericardial effusion seen. 6. Mildly calcified aortic valve with normal leaflet excursion. Mildly calcified mitral annulus with normal anterior mitral valve leaflet motion. Normal tricuspid valve. Normal pulmonic valve and proximal pulmonary artery branches. 7. The inferior vena cava was mildly enlarged, central venous pressure may be elevated. Doppler, it detects trace mitral regurgitation and mild tricuspid regurgitation. The calculated pulmonary artery systolic pressure varied between 35 to 45 mmHg. Assessment of the left ventricular diastolic function was limited in view of the underlying atrial fibrillation. IMPRESSION: 1. Moderate global left ventricular systolic dysfunction with regional wall motion abnormalities consistent with underlying coronary artery disease. The left ventricle is dilated. 2. Assessment of the left ventricular diastolic function was limited in view of the underlying cardiac arrhythmias, atrial fibrillation. 3. Aortic valve sclerosis with trivial aortic stenosis but no aortic regurgitation. The peak gradient across the aortic valve was 13 mmHg with a mean gradient of 8 mmHg. 4. Mitral annulus calcification with trace mitral regurgitation and mildly enlarged left atrium. 5. Mild tricuspid regurgitation with probably mild to moderate pulmonary hypertension.
[2018-07-31 08:00] VITALS: BP 111/59
[2018-07-31] MEDS: SYMBICORT 80/4.5MCG INHALER 6GM INH SCH ×2 (08:00→20:00)
[2018-07-31] MEDS: ASPIRIN 81 MG ENTERIC TAB PO SCH (10:04)
[2018-07-31] MEDS: ENOXAPARIN 120 MG/0.8 ML SYR (J1650) SC SCH ×2 (10:05→20:54)
[2018-07-31] MEDS: RAMIPRIL 1.25 MG CAP PO SCH (10:05)
[2018-07-31 12:00] VITALS: BP 116/65
[2018-07-31 16:00] VITALS: BP 145/70
[2018-07-31] MEDS ORDERED: FUROSEMIDE 20 MG/2 ML VIAL (J1940) IV ONE (19:00)
--- NOTE | 2018-07-31 19:45 | IPN ---
DATE: 07/31/2018 Mr. Downey was seen earlier today, he was in supine in bed in no acute distress at rest and his was at bedside. He denies any complaints of chest pain, shortness of breath, orthopnea, palpitations. He came to the hospital on 07/29/2018, because he was desaturating at night and he has noticed that he feels better when he was using oxygen from a family member. He was seen at the primary care clinic in [place] and further workup was recommended but he did not want to wait. For this reason, he came here. He was found upon arrival to be in atrial fibrillation. He was started on current medications. Prior to coming here, he was not taking any cardiac medications. On physical examination, patient is alert and oriented, in no acute distress at rest, and his vital signs reveal a blood pressure of 145/70 with a pulse of 103, respirations 18-20, and his maximum temperature is 98.5 degrees Fahrenheit with an oxygen saturation of 94-96% on room air. He has a positive fluid balance of 2.1 liters for 07/30/2018. Examination of the head: Atraumatic. Neck is supple, no jugular venous distention (JVD) appreciated. The lungs do not reveal any wheezing or crackles. The heart examination revealed irregular heart sounds without gallops. The point of maximum impulse (PMI) is slightly displaced inferiorly. There is no rub. Abdomen is unremarkable. Extremities reveal trace lower leg and pedal edema. Neurological examination is negative for focal deficit. LABORATORY DATA: BMP done today revealed a sodium of 142, potassium 3.4, chloride 108, CO2 25, BUN 27, creatinine 0.94, GFR more than 60, fasting glucose 119, and calcium 9.0. Liver enzymes revealed a total bilirubin of 0.2, AST 20, ALT 29, alkaline phosphatase 50, total protein 7.2, albumin 3.1. Telemetry revealed atrial fibrillation with a controlled ventricular rate. Echocardiogram done on 07/30/2018, revealed moderately depressed global left ventricular systolic function estimated at 35-40% with regional wall motion abnormalities consistent with underlying coronary artery disease, trivial aortic stenosis, mild tricuspid regurgitation with mild to moderate pulmonary hypertension. IMPRESSION: 1. History of coronary artery disease (CAD) and myocardial infarction. 2. Cardiomyopathy, ischemic in nature with a moderately depressed global left ventricular systolic function. 3. Atrial fibrillation, newly diagnosed. 4. History of hypertension, hyperlipidemia. 5. Possible obstructive sleep apnea. I had a long discussion with Mr. Marco Justo Downey of his diagnostics and treatment. He stated that prior to coming to the hospital, he only was taking some natural treatments but no prescribing drugs. He plans to do the same upon discharge from the hospital. In the meantime, he was started on aspirin, a statin, angiotensin converting enzyme (CATALINA) inhibitor, as well as a beta paco. Case was discussed with the hospitalist and he is going to be started on anticoagulation therapy. However, I doubt he will be taking any of those medications. Upon discharge from the hospital, he will continue to follow with his physician at the primary care clinic in [place] and he stated that he goes only when he is sick. If he needs help, I will see him in the office in [place], [place]. Case was discussed earlier with his hospitalist.
--- NOTE | 2018-07-31 19:56 | IPN ---
DATE: 07/31/2018 SUBJECTIVE: The patient is seen and examined in the room today. The patient states that his breathing is improving. He also notes that his palpitations have been improving as well. Denies any fever or chills. Per staff, the patient had a desaturation yesterday when he was sleeping. Oxygen saturation was around 70% and oxygen saturation improved after the patient woke up. OBJECTIVE: VITAL SIGNS: Temperature is 97.5, pulse 95, respirations 18, blood pressure 111/59, pulse oximetry 99% on room air. GENERAL: Morbidly obese. The patient is alert and awake, oriented. HEENT: Normocephalic, atraumatic. Extraocular motions are intact. CARDIOVASCULAR: Positive S1, S2. Irregularly irregular. LUNGS: Mild crackles. No wheezes appreciated. ABDOMEN: Soft, nontender, nondistended. Bowel sounds present. EXTREMITIES: No edema. LABORATORY DATA: Sodium is 142, potassium 3.4, chloride 108, carbon dioxide 25, BUN 27, creatinine 0.94, GFR greater than 60, fasting glucose 119, calcium 9, total bilirubin 0.2, AST is 20, ALT 21, alkaline phosphatase 15, total protein is 7.3, albumin is 3.1. ASSESSMENT AND PLAN: 1. New onset atrial fibrillation. The patient is on metoprolol. Anticoagulated with Lovenox. Cardiology consulted. 2. Possible obstructive sleep apnea. SYDNEE protocol. According to the patient, the patient does not have any electricity at home. That will create an issue for a continuous positive airway pressure (CPAP) machine if the patient needs one. The patient will benefit from an outpatient sleep study. 3. History of coronary artery disease. On aspirin, beta paco and a statin. 4. Left ventricular systolic dysfunction. Left ventricular ejection fraction of 35 to 40%. No sign of fluid overload at this time. 5. Deep vein thrombosis (DVT) prophylaxis. Lovenox.
[2018-07-31 20:00] VITALS: BP 133/77
[2018-07-31] MEDS: ATORVASTATIN 10 MG TAB PO SCH (20:54)
[2018-07-31] MEDS: PANTOPRAZOLE 40MG TAB (PROTONIX) PO SCH (20:55)
--- NOTE | 2018-07-31 21:09 | CR ---
DATE OF SERVICE: 07/30/2018 REASON FOR THE CONSULT: Atrial fibrillation, . REFERRING PROVIDER: Linsey Gómez DO. PRIMARY PROVIDER: None. HISTORY OF PRESENT ILLNESS: This 68-year-old male with a history of coronary artery disease, myocardial infarction and percutaneous transluminal coronary angioplasty (PTCA)/stent in 2009 has been doing relatively well, off any cardiac meds. Lately, he has been having shortness of breath on activities and he feels also he has been having orthopnea. He explained that to one of his friends and the friend gave him some oxygen supplement and has been using it at 0.5 liters per minute to 1.0 liters a minute intermittently particularly at night and he said that he feels better. He went to the clinic at the [facility], he was complaining of what seems to be snoring and further workup was recommended but for later this month and next month. For this reason, he decided to come to the emergency room (ER) for further evaluation. He was found to be in atrial fibrillation with a rapid ventricular rate at 121 beats per minute. His blood pressure on arrival was reported to be 113/57. He was treated with IV Cardizem and IV Lasix then admitted for further management and monitoring. Cardiology consult was called. When I saw Mr. Marco Downey on the floor, he was sitting up in bed in no acute distress at rest. He said he feels better. He is wondering when he can go home. He would like to be tested while here for obstructive sleep apnea. He denies any chest pain, syncope or near syncope. He does have some shortness of breath on activities, and some minimal bilateral pedal edema. There is no report of bleeding. He has a cough but no hemoptysis. He has a past medical history positive for coronary artery disease with myocardial infarction and PTCA/stent in 2009, and at that time he was on vacation in [place], congestive heart failure related to above, hypertension, arthritis. He denies any history of hyperlipidemia, diabetes mellitus, kidney disease, thyroid disorders, cerebrovascular accident (CVA), significant valvular heart disease, sudden cardiac . PAST SURGICAL HISTORY: Positive for cholecystitis and sciatica. FAMILY HISTORY: Positive for heart disease. He stated that most of his immediate family around the age of 50. CURRENT MEDICATIONS: - Lovenox 110 mg subcutaneous every 12 hours - Atrovent 0.02% 0.5 mg every 4 hours as needed via inhalation for shortness of breath - Tylenol 650 mg every 4 hours as needed for mild pain or fever - oxycodone/acetaminophen 1 tablet every 4 hours as needed for moderate pain or 2 tablets for severe pain every 4 hours as needed - Dulcolax 5 mg daily as needed for constipation - diltiazem 60 mg by mouth every 6 hours - pantoprazole 40 mg by mouth daily - Symbicort 80/4.5 mcg 2 puffs twice a day SOCIAL HISTORY: Patient lives with his and he denies any smoking or ethanol (EtOH) abuse. ALLERGIES: To PENICILLIN. ADVANCED DIRECTIVES: The patient is a FULL CODE. PHYSICAL EXAMINATION: On physical examination, patient is alert and oriented, in no acute distress at rest. His vital signs when I saw him reveal a blood pressure of 120/81 with a pulse of 96, respirations 19, and his maximum temperature was 97.8 degrees Fahrenheit with an oxygen saturation of 96% on 1 liter nasal cannula. Examination of the head: Atraumatic. Neck is supple without extended jugular. The lungs revealed no wheezing or crackles. The heart examination revealed a regular heart sound without gallops. The point of maximal impulse (PMI) is slightly displaced inferiorly and laterally. There is no rub. Abdomen is unremarkable, soft. Extremities reveal trace bilateral leg edema. Neurologic examination grossly is negative for focal deficit. LABORATORIES: A complete blood count (CBC) on 07/29/2018 revealed a white blood cell (WBC) of 5.5, hemoglobin 14.3, hematocrit 42.1 and platelets 162,000. Basic metabolic panel (BMP) done today 07/30/2018 revealed a sodium of 142, potassium 4.1, chloride 105, CO2 24, BUN 22, creatinine 1.29, glomerular filtration rate (GFR) 59.3, fasting glucose 179, and calcium 9.1. Serum magnesium is 2.1. Liver enzymes reveal a total bilirubin of 0.3, AST 23, ALT 34, alkaline phosphatase 55, total protein 7.3, albumin 3.2. Lipid profile revealed a total cholesterol of 176 with triglycerides 33, low-density lipoprotein (LDL) 128 and high-density lipoprotein (HDL) 41. Serum thyroid-stimulating hormone (TSH) was 0.33. Serum troponin has been normal, less than 0.5. Serum proBNP on admission was 1,311. Serum TSH was 0.27. IMPRESSION: 1. Atrial fibrillation: Newly diagnosed in this 69-year-old male with a history of coronary artery disease with percutaneous transluminal coronary angioplasty/stent in 2009, congestive heart failure. Echocardiogram done today revealed a moderately decreased left ventricular systolic function. He is on Cardizem and this will be switched to a short-acting beta-paco with metoprolol tartrate/Lopressor. He is currently on Lovenox. He would benefit from anticoagulation therapy with Coumadin or one of the NOACs. 2. History of coronary artery disease, myocardial infarction as well as percutaneous transluminal coronary angioplasty/stent complicated by heart failure. His echocardiogram done today revealed a decreased global left ventricular systolic function. For this reason, the Cardizem was discontinued and he was started on a beta-paco as well as an CATALINA inhibitor. For his underlying coronary artery disease (CAD), he was started on a baby aspirin and atorvastatin. 3. History of hypertension, under control. 4. History of arthritis, stable. It was a pleasure to participate in the care of Mr. Marco Downey for his underlying cardiac condition. I will continue to monitor him along with you while in the hospital and upon discharge if needed. Please do not hesitate to call if any questions.
[2018-07-31] MEDS ORDERED: METOPROLOL TART 25 MG TABLET PO ONE (22:00)
[2018-08-01] VITALS: BP 112/57
[2018-08-01 04:00] VITALS: BP 128/85
[2018-08-01 05:23] LABS: HEMATOCRIT 41.4 % (42.0-52.0); HEMOGLOBIN 13.7 g/dl (13.5-17.5); MEAN CORPUSCULAR HEMOGLOBIN 28.5 pg (27.0-33.0); MEAN CORPUSCULAR HGB CONC 33.1 g/dl (32.0-36.5); MEAN CORPUSCULAR VOLUME 86.1 fl (80.0-96.0); PLATELET COUNT, AUTOMATED 184 10^3/uL (150-450); RED BLOOD COUNT 4.81 10^6/uL (4.30-6.10); WHITE BLOOD COUNT 8.1 10^3/uL (4.0-10.0)
[2018-08-01 05:30] LABS: BLOOD UREA NITROGEN 21 MG/DL (7-18); CALCIUM LEVEL 8.4 MG/DL (8.8-10.2); CARBON DIOXIDE LEVEL 24 MEQ/L (21-32); CHLORIDE LEVEL 109 MEQ/L (98-107); CREATININE FOR GFR 0.82 MG/DL (0.70-1.30); GLOMERULAR FILTRATION RATE > 60.0 (>49); GLUCOSE, FASTING 92 MG/DL (70-100); POTASSIUM SERUM 3.7 MEQ/L (3.5-5.1); SODIUM LEVEL 142 MEQ/L (136-145)
--- NOTE | 2018-08-01 06:19 | NOCOX ---
DATE OF PROCEDURE: 07/30/2018 to 07/31/2018 Nocturnal oximetry was performed on room air. Oxygen saturation was 98% at the start of the test. The patient resting heart rate was 100. The longest continuous time with an oxygen desaturation less than 88% was 52 seconds. The total time spent with an oxygen saturation less than 88% was 34 minutes and 18 seconds. Heart rate ranged from 54-142. The limited graphic data that I have available for viewing showed Mainor-Palacio respirations in a classic Mainor-Palacio pattern. IMPRESSION: Nocturnal hypoxia, Mainor-Palacio pattern. RECOMMEND: Nocturnal oxygen therapy.
[2018-08-01] MEDS: SYMBICORT 80/4.5MCG INHALER 6GM INH SCH ×2 (07:44→21:15)
[2018-08-01 08:38] VITALS: BP_SYST 11; BP_SYST 111; BP_DIAS 70
[2018-08-01] MEDS: ASPIRIN 81 MG ENTERIC TAB PO SCH (09:19)
[2018-08-01] MEDS: METOPROLOL TART 50 MG TAB PO SCH ×2 (09:19→21:21)
[2018-08-01] MEDS: ENOXAPARIN 120 MG/0.8 ML SYR (J1650) SC SCH ×2 (09:19→21:21)
[2018-08-01] MEDS: RAMIPRIL 1.25 MG CAP PO SCH (09:19)
[2018-08-01 12:26] VITALS: BP 141/80
[2018-08-01 13:48] LABS: INR 1.07
[2018-08-01 16:00] VITALS: BP 122/70
[2018-08-01] MEDS ORDERED: WARFARIN SOD 5 MG TAB PO SCH (17:00)
--- NOTE | 2018-08-01 19:34 | IPNPDOC ---
Text Note Date of Service The patient was seen on 08/01/18. NOTE SUBJECTIVE: The patient is seen and examined in the room today. Patient feels his breathing has been improving since admission. He was on 1L Oxygen yesterday night during sleep. He still woke up with fatigue. Multiple discussions occurred with patient, his and his son-in-law with regarding to anticoagulation and SYDNEE. Coupon of one month vanessaques was offered. According to family member, he is not sure with regarding to alf anticoagulation. OBJECTIVE: VITAL SIGNS: Listed below. GENERAL: Morbidly obese. The patient is alert and awake, oriented. HEENT: Normocephalic, atraumatic. Extraocular motions are intact. CARDIOVASCULAR: Positive S1, S2. Irregularly irregular. LUNGS: Mild crackles. No wheezes appreciated. ABDOMEN: Soft, nontender, nondistended. Bowel sounds present. EXTREMITIES: No edema. LABORATORY DATA: Listed below. ASSESSMENT AND PLAN: #. New onset atrial fibrillation. - The patient is on metoprolol. Continue to adjust dosage and frequency as needed - Anticoagulated with Lovenox. Coupon for Eliques offered. Cardiology consulted. - Has established PCP for patient. #. Possible obstructive sleep apnea. - On SYDNEE protocol. According to the patient, he does not have any electricity at home. Home CPAP may be challenging if patient needs CPAP after sleep study. - The patient will benefit from an outpatient sleep study. #. History of coronary artery disease. - On aspirin, beta paco and a statin. #. Left ventricular systolic dysfunction. - EF of 35 to 40%. No sign of fluid overload at this time. #. Deep vein thrombosis (DVT) prophylaxis. Lovenox. VS,Fishbone, I+O VS, Fishbone, I+O Laboratory Tests 08/01/18 04:49 Red Blood Count 4.81, Mean Corpuscular Volume 86.1, Mean Corpuscular Hemoglobin 28.5, Mean Corpuscular Hemoglobin Concent 33.1, Red Cell Distribution Width 13.2, Calcium Level 8.4 L Vital Signs Date Time Temp Pulse Resp B/P (MAP) Pulse Ox O2 Delivery O2 Flow Rate FiO2 08/01/18 18:00 95 20 94 Room Air 08/01/18 16:00 97.3 122/70 (87) 08/01/18 10:00 2.0 I&O- Last 24 Hours up to 6 AM0 08/01/18 05:59 Intake Total 720 ml Output Total 0 ml Balance 720 ml JEANIE JIMENEZ DO Aug 01, 2018 19:34
--- NOTE | 2018-08-01 19:50 | IPN ---
DATE: 08/01/2018 Mr. Downey is feeling much better. He reports a marked improvement in his dyspnea. He can still continues to cough. Telemetry monitoring continues to reveals atrial fibrillation but the rate is much improved typically heart rate around 90-100. He was hoping to get home tomorrow. He has numerous questions regarding anticoagulation. Vital signs: Blood pressure 122/70, heart rate in 90s irregularly irregular. Saturation 94% on room air. Weight 108 kg, the temperatures was fine in the last 24 hours, the last documented was 97.3. He is alert and oriented appropriate. His JVP is not high. Lungs are reasonably clear to auscultation. I do not appreciate any crackles, wheezing or rhonchi. Heart exam is somewhat muffled due to his body habitus but I do not appreciate any gallop or murmur. Abdomen is obese but soft. There is no peripheral edema. Peripheral pulses are palpable and neurologically he is intact. LABORATORY: He has normal CBC. BMP is also normal and troponin has been negative. His N terminal pro BNP on force during admission was 1400 and an echocardiogram performed during this hospitalization on revealed mildly enlarged left ventricle with estimated LVEF approximately 35-40%. There was aortic sclerosis with trivial stenosis. No insufficiency. Trace mitral insufficiency and mild tricuspid insufficiency. ASSESSMENT/PLAN: Mr. Downey is a 68-year-old man who presents with dyspnea and has underlying infection probably related to parainfluenza virus simultaneously is found to be in atrial fibrillation with RVR and has signs of left ventricular systolic dysfunction. He is clinically much improved and the heart rate is improved on metoprolol 50 mg twice a day. Currently he has been anticoagulated with Lovenox but it is going to be challenging for him on outpatient basis. He does not have any regular insurance and consequently pays for the medications and consequently Noax are probably not affordable I would start him on Coumadin tonight. He was already given one dose around 5 o'clock. If he gets his Lovenox before he goes home hopefully he will get therapeutic within 2 or 3 days. I do not believe that he will necessary require bridging therapy for such short period of time. He lives in [place] and consequently, it will be easier for him to be followed in [place] office. I will arrange for office visit on or at the minimum for his Coumadin check.
[2018-08-01 20:00] VITALS: BP 138/80
[2018-08-01] MEDS: PANTOPRAZOLE 40MG TAB (PROTONIX) PO SCH (21:20)
[2018-08-01] MEDS: ATORVASTATIN 10 MG TAB PO SCH (21:20)
[2018-08-02] VITALS: BP 111/68
[2018-08-02 04:00] VITALS: BP 133/78
[2018-08-02 05:47] LABS: HEMATOCRIT 41.8 % (42.0-52.0); HEMOGLOBIN 13.8 g/dl (13.5-17.5); MEAN CORPUSCULAR HEMOGLOBIN 28.3 pg (27.0-33.0); MEAN CORPUSCULAR VOLUME 85.8 fl (80.0-96.0); PLATELET COUNT, AUTOMATED 186 10^3/uL (150-450); RED BLOOD COUNT 4.87 10^6/uL (4.30-6.10); WHITE BLOOD COUNT 7.6 10^3/uL (4.0-10.0)
[2018-08-02 06:01] LABS: BLOOD UREA NITROGEN 18 MG/DL (7-18); CALCIUM LEVEL 8.6 MG/DL (8.8-10.2); CARBON DIOXIDE LEVEL 26 MEQ/L (21-32); CHLORIDE LEVEL 108 MEQ/L (98-107); CREATININE FOR GFR 0.83 MG/DL (0.70-1.30); GLOMERULAR FILTRATION RATE > 60.0 (>49); GLUCOSE, FASTING 99 MG/DL (70-100); POTASSIUM SERUM 3.9 MEQ/L (3.5-5.1); SODIUM LEVEL 140 MEQ/L (136-145)
[2018-08-02] MEDS: SYMBICORT 80/4.5MCG INHALER 6GM INH SCH (07:41)
[2018-08-02 08:00] VITALS: BP 122/79
--- NOTE | 2018-08-02 08:56 | IPN ---
DATE: 08/02/2018 Mr. Downey had a relatively uneventful night. He tells me that he was able to sleep. This morning though he is very somnolent and when we have a discussion he often falls asleep during the middle of conversation. He denies any chest pain. He does admit that he feels short of breath, much better in the sitting position. Vital signs this morning, blood pressure 133/78, heart rate in 70s and he varies in atrial fibrillation with ambulation, heart rate gets rapidly into 150s or 60s. Saturation is 100% on 1 liter of oxygen. His fluid balance yesterday was documented as somewhat positive, but I think the urine output was not well documented. Weight is 108.6, which is slightly down since admission. He is alert, oriented and appropriate. His lungs are reasonably clear. I do not appreciate crackles or wheezing today. Heart exam revealed irregular rhythm. I do not appreciate any gallop and no obvious murmur. Abdomen is obese, but soft. There is no edema. Laboratory-ramos, potassium 3.9, BUN 18, creatinine 0.8 and glucose 99. CBC: Hemoglobin 13.9, hematocrit 41.8 and platelet count 186,000. ASSESSMENT/PLAN: Mr. Downey is a 68-year-old man who came in with respiratory infection and a respiratory screen was positive for parainfluenza, but he was simultaneously found to be in atrial fibrillation with rapid ventricular response. Echocardiogram revealed reduced left ventricular systolic function with ejection fraction estimated approximately 35-40%. There was also mild aortic stenosis. At this point, he is much better rate controlled on metoprolol. I also increased the dose of ramipril. I do not believe that he needs diuretics on a standing basis as he does not have any visible volume overload and he is clearly improving. As far as the atrial fibrillation is concerned, the rate is much better controlled. We started Coumadin last night because novel oral anticoagulants (NOACs) would not be financially affordable for him. I will arrange for followup in our [place] office on , but I would discharge him on Coumadin 5 mg daily. He will still get this morning dose of Lovenox, but I think that he does not necessarily need to get bridging as his INR is probably going to be therapeutic within the next day or so, so the uncovered period will be very brief. I had a very long discussion with his family yesterday evening, but specifically this morning, especially with his son-in-law. I explained the rationale for Coumadin use. I explained his interactions with good. I also explained the need for frequent monitoring. I also explained the nature of tachycardia induced cardiomyopathy and expressed hope that with medical management there will be recovery. Nevertheless, I stressed the importance of sodium and fluid restrictions and strict compliance with medications.
[2018-08-02] MEDS ORDERED: RAMIPRIL 5 MG CAP PO SCH (09:00)
[2018-08-02 09:08] VITALS: BP 122/79
[2018-08-02] MEDS: METOPROLOL TART 50 MG TAB PO SCH (09:08)
[2018-08-02] MEDS: ENOXAPARIN 120 MG/0.8 ML SYR (J1650) SC SCH (09:09)
[2018-08-02 09:37] LABS: INR 1.13; PROTHROMBIN TIME 14.7 SECONDS (12.1-14.4)
[2018-08-02] MEDS ORDERED: COUM1TAB17 PO (12:10)
[2018-08-02] MEDS ORDERED: RAMI1CAP24 PO (12:10)
[2018-08-02] MEDS ORDERED: LOPR1TAB6 PO (12:10)
[2018-08-02] MEDS ORDERED: ATOR1TAB19 PO (12:10)
[2018-08-02] MEDS ORDERED: PANT40TA3 PO (12:10)
[2018-08-02] MEDS ORDERED: WARFARIN SOD 5 MG TAB PO ONE (17:00)
== END 2018-08-02 16:38 | disposition home or self-care (01) | DRG 201 ==
LOC: M ED 15:38 → M ED INP 23:55 → M PCU 07-30 01:35
PROVIDERS: ADMIT Internal Medicine; ATTEND Internal Medicine
DX: I48.91 Unspecified atrial fibrillation (principal); I10 Essential (primary) hypertension; I25.10 Atherosclerotic heart disease of native coronary artery without angina pectoris; I25.2 Old myocardial infarction; M19.90 Unspecified osteoarthritis, unspecified site; Z66 Do not resuscitate; E78.5 Hyperlipidemia, unspecified; G47.33 Obstructive sleep apnea (adult) (pediatric); Z79.899 Other long term (current) drug therapy; Z88.0 Allergy status to penicillin

== ENCOUNTER 2018-08-30 18:23 | Inpatient (IN) | payer SELFPAY ==
[~2018-08-30] VITALS: Ht 170.2 cm; Wt 97.3 kg
[~2018-08-30 18:23] MED LIST changes: +ATOR1TAB19 PO; +COUM1TAB17 PO; +LOPR1TAB6 PO; +PANT40TA3 PO; +RAMI1CAP24 PO; +[UNRECOGNIZED DRUG - OTHER] PO
[2018-08-30] MEDS ORDERED: ELIQ5TAB PO ×2 (18:33→20:17)
[2018-08-30] MEDS ORDERED: LEVALBUTEROL 1.25 MG/0.5 ML CONCENTRATE NEB As Ordered ONE (18:52)
[2018-08-30 19:00] LABS: VENOUS BASE EXCESS -4.6 (-2.0-2.0); VENOUS HCO3 19.5 MEQ/L (23.0-27.0); VENOUS PARTIAL PRESSURE CO2 33.6 mmHg (38.0-50.0); VENOUS PARTIAL PRESSURE O2 72.2 mmHg (30.0-50.0); VENOUS PH 7.381 UNITS (7.330-7.430); VENOUS STANDARD HCO3 20.6 MEQ/L; VENOUS TOTAL CO2 20.5 MEQ/L (24.0-28.0)
[2018-08-30] MEDS ORDERED: LEVALBUTEROL 1.25 MG/0.5 ML CONCENTRATE NEB NEB PRN (19:00)
[2018-08-30 19:05] LABS: BASO % 0.3 % (0.0-1.0); HEMATOCRIT 44.2 % (42.0-52.0); HEMOGLOBIN 14.3 g/dl (13.5-17.5); LYMPH % 18.9 % (24.0-44.0); MEAN CORPUSCULAR HEMOGLOBIN 28.8 pg (27.0-33.0); MEAN CORPUSCULAR HGB CONC 32.4 g/dl (32.0-36.5); MEAN CORPUSCULAR VOLUME 89.1 fl (80.0-96.0); MONO # 0.8 10^3/uL (0.0-0.8); MONO % 7.2 % (0.0-5.0); NEUTROPHILS # 7.7 10^3/uL (1.8-7.7); NEUTROPHILS % 73.1 % (36.0-66.0); PLATELET COUNT, AUTOMATED 182 10^3/uL (150-450); RED BLOOD COUNT 4.96 10^6/uL (4.30-6.10); WHITE BLOOD COUNT 10.5 10^3/uL (4.0-10.0)
[2018-08-30 19:44] LABS: ALBUMIN 3.2 GM/DL (3.2-5.2); ALT/SGPT 38 U/L (12-78); BILIRUBIN,DIRECT 0.2 MG/DL (0.0-0.2); BILIRUBIN,TOTAL 0.5 MG/DL (0.2-1.0); BLOOD UREA NITROGEN 21 MG/DL (7-18); CALCIUM LEVEL 8.9 MG/DL (8.8-10.2); CARBON DIOXIDE LEVEL 23 MEQ/L (21-32); CHLORIDE LEVEL 108 MEQ/L (98-107); CPK CREATINE PHOSPHOKINASE 90 U/L (39-308); CREATININE FOR GFR 1.05 MG/DL (0.70-1.30); GLOMERULAR FILTRATION RATE > 60.0 (>49); GLUCOSE, FASTING 99 MG/DL (70-100); MB/CK RELATIVE INDEX 4.22 (< OR =4); NT-PRO BNP 6500 PG/ML (<125); POTASSIUM SERUM 4.1 MEQ/L (3.5-5.1); SODIUM LEVEL 140 MEQ/L (136-145); TOTAL PROTEIN 6.4 GM/DL (6.4-8.2); TROPONIN I 0.03 NG/ML (< 0.10)
--- NOTE | 2018-08-30 19:54 | REP ---
Chest one-view HISTORY: Cough Comparison: 07/29/2018 Parenchymal density is present in the right lower lobe consistent with atelectasis or infiltrate. The left lung is clear. There is blunting of the right costophrenic angle due to a small pleural effusion. The heart is normal in size. The pulmonary vasculature is normal in appearance. Impression: 1. Right lower lobe atelectasis or infiltrate. 2. Small right pleural effusion. Electronically Signed by Masood Alcocer MD 08/30/2018 07:46 P
[2018-08-30] MEDS ORDERED: FUROSEMIDE 40 MG/4 ML VIAL (J1940) IV ONE (20:00)
[2018-08-30] MEDS ORDERED: IPRATROPIUM 0.02% SOLN 0.5MG/2.5 ML NEB INH PRN (20:15)
[2018-08-30] MEDS ORDERED: ACETAMINOPHEN TAB 650MG DOSE (2X325MG) PO PRN (20:15)
[2018-08-30] MEDS ORDERED: LEVALBUTEROL 1.25 MG/0.5 ML CONCENTRATE NEB INH PRN (20:15)
[2018-08-30] MEDS ORDERED: RAMI1CAP24 PO (20:17)
[2018-08-30] MEDS ORDERED: ATOR1TAB19 PO (20:17)
[2018-08-30] MEDS ORDERED: METO50TA7 PO (20:17)
[2018-08-30] MEDS: APIXABAN 5 MG TAB (ELIQUIS) PO SCH (20:50)
[2018-08-30] MEDS: ATORVASTATIN 10 MG TAB PO SCH (20:51)
[2018-08-30] MEDS: METOPROLOL TART 50 MG TAB PO SCH (21:36)
--- NOTE | 2018-08-30 21:56 | HPEPDOC ---
[facility] Medical History & Physical Date of Admission Aug 30, 2018 Other Provider Admitting/dictating: Swapnil Bello MD Attending Physician: LEIGH ANN TREVINO MD History and Physical CHIEF COMPLAINT: Shortness of breath x couple of days HISTORY OF PRESENT ILLNESS: Patient is a 68-year-old man with medical history significant for coronary artery disease and newly diagnosed CHF and A. fib last month. Patient was evaluated for shortness of breath in July and was found to have A. fib. Echocardiogram done at that time was consistent with CHF. He was discharged home on apixaban. Metoprolol. However, he reports that ever since discharge he has had occasional shortness of breath progressively worsened over the past 2 days with increase need for oxygen use at home. Hence, his seeking further medical evaluation. He denies any fever, no chills, no chest pain or palpitations. He denies any nausea, vomiting, no change in his bowel or urinary habits. He refers orthopnea, but no lower extremity pains. He also gives history of noticing mild bilateral lower extremity swellings. Patient was evaluated in the emergency room with a chest x-ray last in keeping with CHF. Also, this was called in for further medical care and to admit patient. PAST MEDICAL HISTORY: Per HPI PAST SURGICAL HISTORY: 1. Cardiac stents placement. SOCIAL HISTORY: Marital status: . Resides in: In [place]. He is with his . Children: 8 children Tobacco use: Denies ETOH: Denies Illicit drug use: Denies Tattoos done unprofessionally: No tattoos. IV drug use: Denies FAMILY HISTORY: Father: diagnosed with NV and mini strokes. Mother: , was diagnosed with colon cancer. Siblings: Currently alive. One brother and one sister. One brother from pancreatic cancer. Another brother with heart attacks. Children: 8 children ALLERGIES: Please see below. REVIEW OF SYSTEMS: He denies any fever, no chills, no chest pain or palpitations. He denies any na usea, vomiting, no change in his bowel or urinary habits. He refers orthopnea, but no lower extremity pains. He also gives history of noticing mild bilateral lower extremity swellings. Other systems reviewed, negative. 12 point review of system was done. HOME MEDICATIONS: Please see below. PHYSICAL EXAMINATION: VITAL SIGNS: Temperature 97.7, pulse 120, respiratory rate 19, blood pressure 111/76, pulse oximetry 96 2 L O2. GENERAL APPEARANCE: Elderly man, lying calmly in bed, not in any apparent distress. He is not pale, anicteric and afebrile HEENT: Atraumatic. Neck: Supple. LUNGS: Clear to auscultation bilaterally. CARDIOVASCULAR: S1 and 2 heard, no murmurs, rubs or gallops. ABDOMEN: Obese, soft, not tender, not distended. Bowel sounds normoactive. MUSCULOSKELETAL: Apparently within normal limits. EXTREMITIES: Minimal pedal edema, 2+ bilateral pedal pulses noted. NEUROLOGICAL: Awake, alert, oriented 3. PSYCHIATRIC: Normal affect LABORATORY DATA: See below. IMAGING: Chest x-ray: Right lower lobe atelectasis or infiltrate/small right pleural effusion EKG: A. fib with rate 112 MICROBIOLOGY: Please see below. ASSESSMENT: 68-year-old man habits, CHF, A. fib, comes in complaining with progressive shortness of breath. No constitutional signs. Exam unremarkable. Chest x-ray reveals encephalization on convincing for pneumonia. DIAGNOSES: 1. CHF exacerbation, systolic dysfunction. 2. A. fib . PLAN: 1. I will admit patient to the PCU under care of Dr. Trevino. 2. Patient received a dose of Lasix 40 mg IV. He may continue Lasix 40 mg asked him tomorrow. However, please evaluate patient's volume status on examination, his lungs were clear and pedal edema was very, very minimal. 3. A. fib. I will give reduced dose of beta paco. I'm aware beta paco may worsen shortness of breath, especially in the patient with CHF. However, exam reveals a patient who currently is a short of breath and saturating 96-97% on 2 L of oxygen. He will benefit from low-dose beta paco. Keeping in view rate control for A. fib. Metoprolol 50 mg twice a day 4. Will continue apixaban. 5. GI prophylaxis not indicated at this time. 6. Shortness of breath when necessary Levalbuterol/ipratropium nebulizations. Continue oxygen supplementation via nasal cannula. 7. Patient does not have a formal diagnosis for COPD 8. DVT prophylaxis with apixaban 9. Further care will be per patient's clinical course. Vital Signs Vital Signs Date Time Temp Pulse Resp B/P (MAP) Pulse Ox O2 Delivery O2 Flow Rate FiO2 08/30/18 20:02 98/70 (79) 08/30/18 19:53 107 20 97 Nasal Cannula 3.0 08/30/18 18:24 97.7 Laboratory Data Labs 24H Laboratory Tests 2 08/30/18 18:50: Immature Granulocyte % (Auto) 0.5, White Blood Count 10.5H, Red Blood Count 4.96, Hemoglobin 14.3, Hematocrit 44.2, Mean Corpuscular Volume 89.1, Mean Corpuscular Hemoglobin 28.8, Mean Corpuscular Hemoglobin Concent 32.4, Red Cell Distribution Width 14.5, Platelet Count 182, Neutrophils (%) (Auto) 73.1H, Lymphocytes (%) (Auto) 18.9L, Monocytes (%) (Auto) 7.2H, Eosinophils (%) (Auto) 0.0, Basophils (%) (Auto) 0.3, Neutrophils # (Auto) 7.7, Lymphocytes # (Auto) 2.0, Monocytes # (Auto) 0.8, Eosinophils # (Auto) 0.0, Basophils # (Auto) 0.0, Nucleated Red Blood Cells % (auto) 0.0, Blood Gas Bicarbonate Standard 20.6, Venous Blood pH 7.381, Venous Blood Partial Pressure CO2 33.6L, Venous Blood Pa rtial Pressure O2 72.2H, Venous Blood Total Carbon Dioxide 20.5L, Venous Blood HCO3 19.5L, Venous Blood Oxygen Saturation 93.0H, Venous Blood Base Excess - 4.6L, Anion Gap 9, Glomerular Filtration Rate > 60.0, Lactic Acid Level 3.0*H, Calcium Level 8.9, Aspartate Amino Transf (AST/SGOT) 19, Alanine A minotransferase (ALT/SGPT) 38, Alkaline Phosphatase 50, Total Bilirubin 0.5, Direct Bilirubin 0.2, Total Creatine Kinase 90, Creatine Kinase MB 4.0H, Creatine Kinase MB Relative Index 4.22H, Troponin I 0.03, KZ-Ooe-O-Type Natriuretic Peptide 6500H, Total Protein 6.4, Albumin 3.2, Albumin/Globulin Ra basilia 1.00, Thyroid Stimulating Hormone (TSH) 1.080 CBC/BMP Laboratory Tests 08/30/18 18:50 Red Blood Count 4.96, Mean Corpuscular Volume 89.1, Mean Corpuscular Hemoglobin 28.8, Mean Corpuscular Hemoglobin Concent 32.4, Red Cell Distribution Width 14.5, Neutrophils (%) (Auto) 73.1 H, Lymphocytes (%) (Auto) 18.9 L, Monocytes (%) (Auto) 7.2 H, Eosinophils (%) (Auto) 0.0, Basophils (%) (Auto) 0.3, Neutrophils # (Auto) 7.7, Lymphocytes # (Auto) 2.0, Monocytes # (Auto) 0.8, Eosinophils # (Auto) 0.0, Basophils # (Auto) 0.0 Microbiology Microbiology 08/30/18 Blood Culture, Received Pending 08/30/18 Blood Culture, Received Pending 08/30/18 Respiratory Virus Panel (PCR) ([facility]), Received Pending Home Medications Scheduled (Ubiquinol) 100 Mg Cap, 100 MG PO TID Apixaban Base (Eliquis) 5 Mg Tab, 5 MG PO BID Atorvastatin Calcium (Atorvastatin Calcium) 10 Mg Tab, 10 MG PO QHS Metoprolol Tartrate (Metoprolol Tartrate) 50 Mg Tab, 100 MG PO BID Ramipril (Ramipril) 5 Mg Cap, 5 MG PO DAILY Allergies Coded Allergies: Penicillins (Verified Allergy, Unknown, 03/14/17) SWAPNIL BELLO MD Aug 30, 2018 20:10
[2018-08-31] VITALS (10 sets, daily range): BP systolic 99–141; BP diastolic 53–91
[2018-08-31 06:56] LABS: BASO # 0.1 10^3/uL (0.0-0.2); BASO % 0.5 % (0.0-1.0); HEMATOCRIT 39.8 % (42.0-52.0); HEMOGLOBIN 13.2 g/dl (13.5-17.5); LYMPH # 2.5 10^3/uL (1.5-4.5); LYMPH % 25.9 % (24.0-44.0); MEAN CORPUSCULAR HEMOGLOBIN 28.6 pg (27.0-33.0); MEAN CORPUSCULAR HGB CONC 33.2 g/dl (32.0-36.5); MEAN CORPUSCULAR VOLUME 86.1 fl (80.0-96.0); MONO % 9.7 % (0.0-5.0); NEUTROPHILS # 6.2 10^3/uL (1.8-7.7); NEUTROPHILS % 63.4 % (36.0-66.0); PLATELET COUNT, AUTOMATED 165 10^3/uL (150-450); RED BLOOD COUNT 4.62 10^6/uL (4.30-6.10); WHITE BLOOD COUNT 9.8 10^3/uL (4.0-10.0)
[2018-08-31 07:27] LABS: BLOOD UREA NITROGEN 19 MG/DL (7-18); CALCIUM LEVEL 8.7 MG/DL (8.8-10.2); CARBON DIOXIDE LEVEL 23 MEQ/L (21-32); CHLORIDE LEVEL 109 MEQ/L (98-107); CREATININE FOR GFR 0.87 MG/DL (0.70-1.30); GLOMERULAR FILTRATION RATE > 60.0 (>49); GLUCOSE, FASTING 89 MG/DL (70-100); POTASSIUM SERUM 3.2 MEQ/L (3.5-5.1); SODIUM LEVEL 142 MEQ/L (136-145)
[2018-08-31] MEDS ORDERED: POTASSIUM CHLORIDE 10 MEQ SR TABLET PO ONE ×2 (07:45→11:30)
[2018-08-31 07:59] LABS: MAGNESIUM LEVEL 2.2 MG/DL (1.8-2.4)
[2018-08-31 08:27] LABS: CPK CREATINE PHOSPHOKINASE 72 U/L (39-308); MB/CK RELATIVE INDEX 4.31 (< OR =4); TROPONIN I 0.04 NG/ML (< 0.10)
[2018-08-31] MEDS: RAMIPRIL 5 MG CAP PO SCH (09:00)
[2018-08-31] MEDS ORDERED: FUROSEMIDE 40 MG/4 ML VIAL (J1940) IV SCH (09:00)
[2018-08-31] MEDS: METOPROLOL TART 50 MG TAB PO SCH ×2 (09:00→20:00)
--- NOTE | 2018-08-31 09:04 | ECGEPIP ---
Stationary ECG Study [facility] - ED Test Date: 2018-08-30 Pat Name: RODY OVIEDO Department: Room: [facility] Gender: M Patient Escort: charanjit : 1950 Requested By: MILTON De Guzman Order Number: [id number] Reading MD: Maxi Witt Measurements Intervals [place] Rate: 112 P: CO: 0 QRS: -22 QRSD: 97 T: 160 QT: 330 QTc: 452 Interpretive Statements ATRIAL FIBRILLATION WITH RAPID VENTRICULAR RESPONSE INCOMPLETE RIGHT BUNDLE BRANCH BLOCK ANTEROSEPTAL MYOCARDIAL INFARCTION, PROBABLY OLD MODERATE T-WAVE ABNORMALITY, CONSIDER LATERAL ISCHEMIA RATE CHANGE COMPARED TO 07/29/18 Electronically Signed On 08-31-2018 9:04:40 EST by Maxi Witt
--- NOTE | 2018-08-31 09:15 | REP ---
CT chest without contrast: History: Question infiltrate. Comparison is made with yesterday's chest x-ray. CT findings: There are bilateral pleural effusions small to moderate on the right and small on the left. There is minimal compressive atelectasis in the right lower lobe adjacent to the effusion. No focal parenchymal infiltrate is seen. Cardiomegaly is observed. No pericardial effusion is seen. Vascular calcification is noted. There are scattered normal-sized mediastinal lymph nodes. No adrenal lesion is seen. There are large calcified gallstones in the gallbladder lumen. No extrathoracic mass or adenopathy is seen. No bony destructive lesion is seen. Impression: Bilateral pleural effusions, right greater than left. Some mild compressive atelectasis in the right lower lobe. No infiltrate seen. Cholelithiasis. Left coronary artery vascular calcification. Electronically Signed by Ryley Holguin MD 08/31/2018 06:47 P
[2018-08-31] MEDS ORDERED: FUROSEMIDE 40 MG/4 ML VIAL (J1940) IV ONE ×2 (10:15→18:00)
[2018-08-31] MEDS: APIXABAN 5 MG TAB (ELIQUIS) PO SCH ×2 (10:33→20:00)
[2018-08-31] MEDS ORDERED: AMIODARONE HCL 150 MG in APPROPRIATE DILUENT 1 EA IV ONE (13:15)
--- NOTE | 2018-08-31 13:21 | IPNPDOC ---
Text Note Date of Service The patient was seen on 08/31/18. NOTE Subjective: Patient states dyspnea is improving. Denies any chest pain. States he does not take any diuretics at home. Objective: Vitals: (see below) General: No acute distress, laying comfortably in bed. HEENT: Moist mucous membranes. Neck: Mild JVD . No lymphadenopathy Cardiac: RRR, No murmurs Pulm: Coarse crackles at the bases b/l. No wheezing, rhonchi Abd: NT/ND + BS Ext: 2+ pitting edema bilateral lower extremities. No cyanosis. Distal pulses intact. Labs (see below) Images: CT chest on 08/31/18 Impression: Bilateral pleural effusions, right greater than left. Some mild compressive atelectasis in the right lower lobe. No infiltrate seen. Cholelithiasis. Left coronary artery vascular calcification. Assessment/Plan 1. Acute decompensated systolic heart failure EF of 30%. Has not been taking any diuretics at home. Noncompliant with low-sodium diet and fluid resection. Symptomatically improving with Lasix. Continue beta paco, CATALINA inhibitor, will add spironolactone once blood pressures improved.. Continue Lasix IV. Cardiac consulted. 2. Nonsustained ventricular tachycardia- discussed with Dr. Fisher who recommends [place] of amiodarone, in addition to continuing metoprolol. Patient will eventually need outpatient cardiac cath set up. K replaced. Appreciate 's input. 3. Hypokalemia replaced. 4. History of CAD status post PCI 2 in 2009. Continue meds. 5. History of atrial fibrillation. Rate controlled. Continue metoprolol, on eliquis. 6. Chronic hypoxic respiratory failure. On 1.5 L home O2 at baseline. DVT prophy:on eliquis Overall prognosis guarded. VS,Fishbone, I+O VS, Fishbone, I+O Laboratory Tests 08/30/18 18:50 Red Blood Count 4.96, Mean Corpuscular Volume 89.1, Mean Corpuscular Hemoglobin 28.8, Mean Corpuscular Hemoglobin Concent 32.4, Red Cell Distribution Width 14.5, Neutrophils (%) (Auto) 73.1 H, Lymphocytes (%) (Auto) 18.9 L, Monocytes (%) (Auto) 7.2 H, Eosinophils (%) (Auto) 0.0, Basophils (%) (Auto) 0.3, Neutrophils # (Auto) 7.7, Lymphocytes # (Auto) 2.0, Monocytes # (Auto) 0.8, Eosinophils # (Auto) 0.0, Basophils # (Auto) 0.0 08/31/18 06:21 Red Blood Count 4.62, Mean Corpuscular Volume 86.1, Mean Corpuscular Hemoglobin 28.6, Mean Corpuscular Hemoglobin Concent 33.2, Red Cell Distribution Width 14.6 H, Neutrophils (%) (Auto) 63.4, Lymphocytes (%) (Auto) 25.9, Monocytes (%) (Auto) 9.7 H, Eosinophils (%) (Auto) 0.0, Basophils (%) (Auto) 0.5, Neutrophils # (Auto) 6.2, Lymphocytes # (Auto) 2.5, Monocytes # (Auto) 1.0 H, Eosinophils # (Auto) 0.0, Basophils # (Auto) 0.1, Calcium Level 8.7 L, Total Creatine Kinase 72 Vital Signs Date Time Temp Pulse Resp B/P (MAP) Pulse Ox O2 Delivery O2 Flow Rate FiO2 08/31/18 09:00 105 108/68 08/31/18 08:00 97.9 22 98 3.0 08/31/18 01:02 Nasal Cannula I&O- Last 24 Hours up to 6 AM 08/31/18 06:00 Intake Total 150 ml Output Total 1175 ml Balance -1025 ml LEIGH ANN TREVINO MD Aug 31, 2018 13:21
[2018-08-31] MEDS ORDERED: SLF 3 ML SYR IV PRN (16:45)
[2018-08-31] MEDS ORDERED: AMIODARONE HCL 150 MG in APPROPRIATE DILUENT 1 EA IV STA ×2 (17:47→22:14)
[2018-08-31] MEDS: ATORVASTATIN 10 MG TAB PO SCH (20:00)
[2018-08-31] MEDS: SLF 3 ML SYR IV SCH (22:00)
[2018-08-31] MEDS ORDERED: hydrOXYzine 10 MG TAB PO ONE (22:45)
[2018-09-01] VITALS (7 sets, daily range): BP systolic 101–133; BP diastolic 64–94
[2018-09-01] MEDS: SLF 3 ML SYR IV SCH ×3 (05:35→20:46)
[2018-09-01 06:03] LABS: HEMATOCRIT 43.3 % (42.0-52.0); HEMOGLOBIN 14.1 g/dl (13.5-17.5); MEAN CORPUSCULAR HEMOGLOBIN 28.9 pg (27.0-33.0); MEAN CORPUSCULAR HGB CONC 32.6 g/dl (32.0-36.5); MEAN CORPUSCULAR VOLUME 88.7 fl (80.0-96.0); PLATELET COUNT, AUTOMATED 187 10^3/uL (150-450); RED BLOOD COUNT 4.88 10^6/uL (4.30-6.10); WHITE BLOOD COUNT 9.8 10^3/uL (4.0-10.0)
[2018-09-01 06:29] LABS: BLOOD UREA NITROGEN 26 MG/DL (7-18); CARBON DIOXIDE LEVEL 23 MEQ/L (21-32); CHLORIDE LEVEL 109 MEQ/L (98-107); CREATININE FOR GFR 1.12 MG/DL (0.70-1.30); GLOMERULAR FILTRATION RATE > 60.0 (>49); GLUCOSE, FASTING 111 MG/DL (70-100); POTASSIUM SERUM 3.8 MEQ/L (3.5-5.1); SODIUM LEVEL 141 MEQ/L (136-145)
[2018-09-01] MEDS ORDERED: FUROSEMIDE 40 MG/4 ML VIAL (J1940) IV SCH (09:00)
[2018-09-01] MEDS: APIXABAN 5 MG TAB (ELIQUIS) PO SCH ×2 (09:12→20:45)
[2018-09-01] MEDS: RAMIPRIL 5 MG CAP PO SCH (09:12)
[2018-09-01] MEDS: METOPROLOL TART 50 MG TAB PO SCH (09:12)
--- NOTE | 2018-09-01 14:41 | IPNPDOC ---
Text Note Date of Service The patient was seen on 09/01/18. NOTE Subjective: Patient denies chest pain or palpitations. Has PND and orthopnea. Lower extremity edema improving. Objective: Vitals: (see below) General: No acute distress, laying comfortably in bed. HEENT: Moist mucous membranes. Neck: No JVD . No lymphadenopathy Cardiac: Irregularly irregular, No murmurs Pulm: Coarse crackles at the bases b/l. No wheezing, rhonchi Abd: NT/ND + BS Ext: 1+ pitting edema bilateral lower extremities. No cyanosis. Distal pulses intact. Labs (see below) Images: CT chest on 08/31/18 Impression: Bilateral pleural effusions, right greater than left. Some mild compressive atelectasis in the right lower lobe. No infiltrate seen. Cholelithiasis. Left coronary artery vascular calcification. Assessment/Plan 1. Acute decompensated systolic heart failure EF of 30%. Has not been taking any diuretics at home. Noncompliant with low-sodium diet and fluid resection. Symptomatically improving with Lasix. Continue beta paco, CATALINA inhibitor, will add spironolactone once blood pressures improved.. Continue Lasix IV, increase to every [address] Fisher on consult, and we'll be looking into outpatient cardiac catheterization for patient. 2. Nonsustained ventricular tachycardia-on metoprolol, started on amiodarone by Dr. fisher. Patient will eventually need outpatient cardiac cath set up. K replaced. Appreciate 's input. 3. Hypokalemia replaced. 4. History of CAD status post PCI 2 in 2009. Continue meds. 5. History of atrial fibrillation. Rate controlled. Continue metoprolol, on eliquis. Metoprolol dose increased. 6. Chronic hypoxic respiratory failure. On 1.5 L home O2 at baseline. DVT prophy:on eliquis Overall prognosis guarded. VS,Fishbone, I+O VS, Fishbone, I+O Laboratory Tests 09/01/18 05:37 Red Blood Count 4.88, Mean Corpuscular Volume 88.7, Mean Corpuscular Hemoglobin 28.9, Mean Corpuscular Hemoglobin Concent 32.6, Red Cell Distribution Width 14.6 H, Calcium Level 9.0 Vital Signs Date Time Temp Pulse Resp B/P (MAP) Pulse Ox O2 Delivery O2 Flow Rate FiO2 09/01/18 12:00 1.0 09/01/18 11:56 97.7 112 22 115/77 (90) 98 08/31/18 01:02 Nasal Cannula I&O- Last 24 Hours up to 6 AM 09/01/18 06:00 Intake Total 720 ml Output Total 2050 ml Balance -1330 ml LEIGH ANN TREVINO MD Sep 01, 2018 14:41
[2018-09-01] MEDS: FUROSEMIDE 40 MG/4 ML VIAL (J1940) IV SCH (17:26)
[2018-09-01] MEDS: ATORVASTATIN 10 MG TAB PO SCH (20:46)
[2018-09-01] MEDS ORDERED: METOPROLOL TART 25 MG TABLET PO SCH (21:00)
[2018-09-02] VITALS (7 sets, daily range): BP systolic 109–139; BP diastolic 67–97
[2018-09-02] MEDS: FUROSEMIDE 40 MG/4 ML VIAL (J1940) IV SCH ×2 (01:10→09:06)
[2018-09-02 05:42] LABS: HEMATOCRIT 41.4 % (42.0-52.0); HEMOGLOBIN 13.6 g/dl (13.5-17.5); MEAN CORPUSCULAR HGB CONC 32.9 g/dl (32.0-36.5); MEAN CORPUSCULAR VOLUME 88.3 fl (80.0-96.0); PLATELET COUNT, AUTOMATED 166 10^3/uL (150-450); RED BLOOD COUNT 4.69 10^6/uL (4.30-6.10); WHITE BLOOD COUNT 8.6 10^3/uL (4.0-10.0)
[2018-09-02] MEDS: SLF 3 ML SYR IV SCH ×3 (06:00→21:26)
[2018-09-02 06:26] LABS: BLOOD UREA NITROGEN 25 MG/DL (7-18); CALCIUM LEVEL 8.5 MG/DL (8.8-10.2); CARBON DIOXIDE LEVEL 28 MEQ/L (21-32); CHLORIDE LEVEL 107 MEQ/L (98-107); CREATININE FOR GFR 0.94 MG/DL (0.70-1.30); GLOMERULAR FILTRATION RATE > 60.0 (>49); GLUCOSE, FASTING 98 MG/DL (70-100); POTASSIUM SERUM 2.9 MEQ/L (3.5-5.1); SODIUM LEVEL 143 MEQ/L (136-145)
[2018-09-02] MEDS ORDERED: POTASSIUM CHLORIDE 10 MEQ SR TABLET PO ONE ×3 (06:45→18:15)
[2018-09-02] MEDS: APIXABAN 5 MG TAB (ELIQUIS) PO SCH ×2 (09:03→21:25)
[2018-09-02] MEDS: RAMIPRIL 5 MG CAP PO SCH (09:04)
[2018-09-02] MEDS: METOPROLOL TARTRATE 100 MG TAB PO SCH ×2 (09:04→21:25)
[2018-09-02] MEDS: DOXYCYCLINE HYCLATE 100 MG TAB PO SCH ×2 (10:35→21:25)
--- NOTE | 2018-09-02 12:40 | CR ---
DATE OF SERVICE: 08/31/2018 REFERRING PROVIDER: Bao Fung MD REASON FOR THE CONSULT: Heart failure, atrial fibrillation. HISTORY OF PRESENT ILLNESS: A 68-year-old male well known by the office and was recently admitted here at [facility] on 07/29/2018 and was diagnosed with ischemic cardiomyopathy with a moderately depressed global left ventricular systolic function. He was stabilized then discharged home on 08/06/2018 and after that, he was seen in the office for followup. He came back to the hospital on 08/30/2018 with increasing shortness of breath, pedal edema, orthopnea. He denies any chest pain. He was found to be in decompensated congestive heart failure and also with findings of atrial fibrillation with a rapid ventricular rate. He was admitted for further management and monitoring. When I saw Mr. Marco Downey on the floor, he was sitting up in bed in no acute distress at rest and his was at bedside as well as another family member. He denies any chest pain. He thinks that his pedal edema is slightly improved, but he continues to feel short of breath for three days, relieved with rest. He does have palpitations with rapid ventricular rate. He has a cough but denies any hemoptysis or fever. He has no nausea, vomiting, diarrhea, melena or hematemesis. He denies any focal manifestation. He has no active bleeding. Once again, he stated that he was not taking his medications and was trying some homemade remedies. At home, it seemed that he was having orthopnea. According to the , he has to sit up in order to sleep and he was joking about that at stated that he needed to pray. He has a past medical history positive for coronary artery disease with myocardial infarction followed by percutaneous transluminal coronary angioplasty (PTCA)/stent in 2009 and at that time he was on vacation in [place], congestive heart failure similar to ischemic cardiomyopathy and on the last assessment, his left ventricular function (LVF) was reported to be 35%. He also has a history of hypertension, hyperlipidemia, arthritis, and probably sleep apnea, atrial fibrillation that has been chronic and persistent. He denies diabetes mellitus, kidney disease, thyroid disorders, cerebrovascular accident (CVA)/transient ischemic attack (TIA). MEDICATIONS: - metoprolol tartrate 50 mg by mouth twice a day - Lasix 40 mg intravenous (IV) daily - ramipril - apixaban 5 mg by mouth twice a day - atorvastatin 10 mg by mouth daily - Tylenol 650 mg every 4 hours as needed for mild pain or fever - Xopenex 0.63 mg every 4 hours as needed - Xopenex nebulizer 1.25 mg every 20 minutes as needed for shortness of breath - Atrovent 0.5 mg every 4 hours as needed via inhalation for shortness of breath PAST SURGICAL HISTORY: Positive for: 1. Gallstones. 2. Sciatica. FAMILY HISTORY: Is positive for coronary artery disease. He stated that most of his immediate family around the age of 50 from heart disease. SOCIAL HISTORY: The patient lives with his and he denies any smoking or ethanol (EtOH) abuse. He has eight children. He denies any illicit drugs. ALLERGIES: No known drug allergies. ADVANCED DIRECTIVES: The patient is a FULL CODE. PHYSICAL EXAMINATION: On physical examination, patient is alert and oriented, with mild shortness of breath at rest. His vital signs when I saw him revealed a blood pressure of 122/65 with a pulse of 125, respirations 18-20, and his maximum temperature was 99.5 degrees Fahrenheit with an oxygen saturation of 99% on 3 liters nasal cannula. Examination of the head: Atraumatic. Neck is supple with extended jugular. The lungs revealed minimal crackles at the bases but no wheezing. The heart examination revealed an irregular heart sound without gallops. The point of maximal impulse (PMI) is displaced inferiorly and laterally. There is no rub. I could not appreciate any murmurs. Abdomen is soft, obese and nontender. Extremities reveal +2 bilateral lower leg and pedal edema. Neurologic examination is negative for focal deficit. LABORATORIES: A CBC on 08/31/2018 revealed a WBC of 9.8, hemoglobin 13.2, hematocrit 39.8 and platelets 165,000. BMP on 08/31/2018 revealed a sodium of 142, potassium 3.2, chloride 109, CO2 23, BUN 19, creatinine 0.87, GFR more than 60, fasting glucose 89, and calcium 8.7. Serum magnesium is 2.2. ABG on admission revealed a pH of 7.38 with a pCO2 of 33.6 and a PO2 of 72.2. Chest x-ray on admission, 08/30/2018, revealed right lower lobe atelectasis versus infiltrate and a small right pleural effusion. A CT of the chest on 08/31/2018 revealed bilateral pleural effusion, right greater than left and some mild compressive atelectasis in the right lower lobe. No infiltrates. Cholelithiasis was noted. Coronary artery calcification was also noted. Cardiomegaly was noted. EKG on 08/30/2018 revealed atrial fibrillation at 112 beats per minute, incomplete right bundle-branch block, poor R-wave progression versus prior anterior septal infarct and ST-T abnormalities on the monitors. IMPRESSION: 1. Congestive heart failure secondary to a combination of factors such as his history of ischemic cardiomyopathy and his underlying atrial fibrillation with uncontrolled ventricular rate. This is acute on chronic secondary to noncompliance. The patient was not taking his medications. He was restarted on those medications upon admission. I will increase the Lasix and his heart rate when I was at bedside was going fast and I gave him an initial dose of amiodarone and Lasix. We will need to monitor closely his BUN and creatinine and serum potassium. I do not plan to continue the amiodarone. Will try to control his heart rate with the beta-paco. We had a long discussion about the importance of being compliant with his medications and followup with his physician. He has agreed now to continue to take his medications even though he might try again the home remedies but he understands that the home remedies alone will not control his problems. He manifested the interest in proceeding with a cardiac catheterization and I will get some information for him. This will be done, if he agrees, as outpatient. 2. Atrial fibrillation with uncontrolled ventricular rate secondary to noncompliance and we will increase his beta-paco. He is currently on Eliquis for prevention of thromboembolic events. He denies any bleeding. 3. History of coronary artery disease, myocardial infarction with percutaneous transluminal coronary angioplasty/stent. Left ventricular ejection function (LVEF) is moderately depressed on the recent echocardiogram done in July of 2018. 4. History of hypertension and he will be monitored. 5. Hyperlipidemia, on a statin. It was a pleasure to participate in the care of Mr. Marco Downey for his underlying cardiac condition. I will continue to monitor him along with you while in the hospital and upon discharge. Please do not hesitate to call if any questions. The case was discussed with hospitalist covering. MCCLELLAND
--- NOTE | 2018-09-02 16:38 | IPNPDOC ---
Text Note Date of Service The patient was seen on 09/02/18. NOTE Subjective: Dyspnea improving. Denies any chest pain or palpitations. In good spirits. Objective: Vitals: (see below) General: No acute distress, laying comfortably in bed. HEENT: Moist mucous membranes. Neck: No JVD . No lymphadenopathy Cardiac: Irregularly irregular, No murmurs Pulm: Coarse crackles at the bases b/l. No wheezing, rhonchi Abd: NT/ND + BS Ext: 1+ pitting edema bilateral lower extremities. No cyanosis. Distal pulses intact. Labs (see below) Images: CT chest on 08/31/18 Impression: Bilateral pleural effusions, right greater than left. Some mild compressive atelectasis in the right lower lobe. No infiltrate seen. Cholelithiasis. Left coronary artery vascular calcification. Assessment/Plan 1. Acute decompensated systolic heart failure EF of 30%. Has not been taking any diuretics at home. Noncompliant with low-sodium diet and fluid resection. Sy mptomatically improving with Lasix. Continue beta paco, CATALINA inhibitor,. Add spironolactone. Continue Lasix IV every [address] Fisher on consult, and we'll be looking into outpatient cardiac catheterization for patient. 2. Nonsustained ventricular tachycardia-on metoprolol, started on amiodarone by Dr. fisher. Patient will eventually need outpatient cardiac cath set up. K replaced. Appreciate 's input. 3. Hypokalemia replaced. 4. History of CAD status post PCI 2 in 2009. Continue meds. 5. History of atrial fibrillation. Rate controlled. Continue metoprolol, on eliquis. Metoprolol dose increased. 6. Chronic hypoxic respiratory failure. On 1.5 L home O2 at baseline. DVT prophy:on eliquis Overall prognosis guarded. We'll continue IV diuresis. VS,Fishbone, I+O VS, Fishbone, I+O Laboratory Tests 09/02/18 05:29 Red Blood Count 4.69, Mean Corpuscular Volume 88.3, Mean Corpuscular Hemoglobin 29.0, Mean Corpuscular Hemoglobin Concent 32.9, Red Cell Distribution Width 14.6 H, Calcium Level 8.5 L Vital Signs Date Time Temp Pulse Resp B/P (MAP) Pulse Ox O2 Delivery O2 Flow Rate FiO2 09/02/18 16:00 98.3 105 18 137/97 (110) 99 1.0 08/31/18 01:02 Nasal Cannula I&O- Last 24 Hours up to 6 AM 09/02/18 06:00 Intake Total 600 ml Output Total 2250 ml Balance -1650 ml LEIGH ANN TREVINO MD Sep 02, 2018 16:38
[2018-09-02 17:29] LABS: BLOOD UREA NITROGEN 30 MG/DL (7-18); CALCIUM LEVEL 8.7 MG/DL (8.8-10.2); CARBON DIOXIDE LEVEL 28 MEQ/L (21-32); CHLORIDE LEVEL 107 MEQ/L (98-107); CREATININE FOR GFR 1.19 MG/DL (0.70-1.30); GLOMERULAR FILTRATION RATE > 60.0 (>49); GLUCOSE, FASTING 135 MG/DL (70-100); MAGNESIUM LEVEL 1.9 MG/DL (1.8-2.4); POTASSIUM SERUM 3.6 MEQ/L (3.5-5.1); SODIUM LEVEL 141 MEQ/L (136-145)
[2018-09-02] MEDS ORDERED: ELIQ5TAB PO (17:48)
[2018-09-02] MEDS: SPIRONOLACTONE 12.5MG PER 1/2 TABLET PO SCH (18:33)
--- NOTE | 2018-09-02 18:55 | IPN ---
DATE: 09/02/2018 Mr. Marco Downey was seen earlier this evening. He was sitting up in bed in no acute distress at rest and family members were at bedside. He says that he feels better and has been having less shortness of breath, and he is also coughing less. His pedal edema has improved. He is no longer having orthopnea. He denies any palpitations. He denies any dizziness or lightheadedness. He has no focal manifestation. There is no report of bleeding. There is no nausea, vomiting, diarrhea, melena, or hematemesis. On physical examination, the patient is alert and oriented, in no acute distress at rest and his most recent vital signs revealed a blood pressure of 137/97 and prior to that, it was 139/85 with a pulse that varies between 80 and up to 115, respirations 18 to 20, and his maximum temperature is 98.5 degrees Fahrenheit with an oxygen saturation of 99% on one liter nasal cannula. Examination of the head: Atraumatic. Neck is supple with extended jugular. The lungs did not reveal any wheezing or crackles. The heart examination revealed irregular heart sounds without gallops. The point of maximum impulse (PMI) is displaced inferiorly and laterally. There is no rub. There is a systolic murmur grade 1-2 over 6 at the lower left sternal border and at the apex without any significant radiation. Abdomen is soft, obese, and nontender. Extremities revealed trace to +1 bilateral lower leg edema. Neurologic examination is negative for focal deficit. LABORATORY: BMP done this afternoon revealed a sodium of 141, potassium 3.6, chloride 107, CO2 28, BUN 30, creatinine 1.19, GFR more than 60, fasting glucose 1.35, and calcium 8.7. Serum magnesium is 1.9. Serum potassium earlier today was 2.9. CBC revealed a WBC of 8.6, hemoglobin 13.6, hematocrit 41.4, and platelets 166,000. Telemetry was reviewed, and revealed atrial fibrillation, sustained. Ventricular rate is rapid at times. IMPRESSION: 1. Status post decompensated congestive heart failure secondary to left ventricular systolic dysfunction due to ischemic cardiomyopathy, acute on chronic secondary to noncompliance with medications and diet. 2. History of coronary artery disease and myocardial infarction. Left ventricular ejection fraction (LVEF) is moderately depressed. History of coronary artery disease, and this has been stable. He denies any chest pain, and his serum troponin has been negative. On admission, we have discussed about cardiac catheterization, but at the present time, there is no indication. We will monitor him and see how he responds to the medications. 3. Atrial fibrillation, chronic and persistent. Will continue his AV blocking agent with metoprolol tartrate. If needed, we may add digoxin in order to better control his heart failure. He is on Eliquis for prevention of thromboembolic event. 4. History of hyperlipidemia. On a statin, and should try to keep his LDL cholesterol less than 70. 5. History of hypertension. The ramipril can be increased if necessary in order to better control his blood pressure. 6. Electrolyte abnormalities, status post hypokalemia. Will need to monitor closely his serum potassium, now on an CATALINA inhibitor and spironolactone. Mr. Marco Downey seems to have improved after restarting his cardiac medications. Currently, he is on angiotensin-converting enzyme (CATALINA) inhibitor as well as a beta paco, and spironolactone for his underlying cardiomyopathy and heart failure. He is also on intravenous (IV) Lasix. I have discussed with him, as well as his , about the importance of taking his medications, and he stated that he will do his best to be compliant. Low salt diet also recommended, and he will be followed upon discharge as an outpatient at the office in [place]. We did discuss about cardiac catheterization, but at the present time, there is no indication. It was a pleasure to participate in the care of Mr. Marco Downey for his underlying cardiac condition. His cardiac condition seems to have improved, and he will continue current medications. Dr. Carmona will be covering over the weekend and will be seeing him. Please do not hesitate to call if any questions. KRYSTIN
[2018-09-02] MEDS: ATORVASTATIN 10 MG TAB PO SCH (21:25)
[2018-09-03] MEDS: RAMELTEON 8 MG TAB (ROZEREM) PO SCH ×2 (00:10→21:21)
[2018-09-03 04:00] VITALS: BP 100/71
[2018-09-03 05:33] LABS: HEMATOCRIT 43.9 % (42.0-52.0); HEMOGLOBIN 14.1 g/dl (13.5-17.5); MEAN CORPUSCULAR HEMOGLOBIN 28.5 pg (27.0-33.0); MEAN CORPUSCULAR HGB CONC 32.1 g/dl (32.0-36.5); MEAN CORPUSCULAR VOLUME 88.7 fl (80.0-96.0); PLATELET COUNT, AUTOMATED 174 10^3/uL (150-450); RED BLOOD COUNT 4.95 10^6/uL (4.30-6.10); WHITE BLOOD COUNT 8.6 10^3/uL (4.0-10.0)
[2018-09-03] MEDS: SLF 3 ML SYR IV SCH ×3 (05:53→21:22)
[2018-09-03 06:01] LABS: BLOOD UREA NITROGEN 28 MG/DL (7-18); CALCIUM LEVEL 8.8 MG/DL (8.8-10.2); CARBON DIOXIDE LEVEL 27 MEQ/L (21-32); CHLORIDE LEVEL 111 MEQ/L (98-107); CREATININE FOR GFR 1.06 MG/DL (0.70-1.30); GLOMERULAR FILTRATION RATE > 60.0 (>49); GLUCOSE, FASTING 114 MG/DL (70-100); POTASSIUM SERUM 3.7 MEQ/L (3.5-5.1); SODIUM LEVEL 144 MEQ/L (136-145)
[2018-09-03 07:51] VITALS: BP 135/84
[2018-09-03] MEDS ORDERED: FUROSEMIDE 40 MG/4 ML VIAL (J1940) IV SCH (09:00)
[2018-09-03] MEDS: SPIRONOLACTONE 12.5MG PER 1/2 TABLET PO SCH (09:36)
[2018-09-03] MEDS: DOXYCYCLINE HYCLATE 100 MG TAB PO SCH ×2 (09:37→21:21)
[2018-09-03] MEDS: RAMIPRIL 5 MG CAP PO SCH (09:37)
[2018-09-03] MEDS: APIXABAN 5 MG TAB (ELIQUIS) PO SCH ×2 (09:38→21:21)
[2018-09-03] MEDS: METOPROLOL TARTRATE 100 MG TAB PO SCH ×3 (09:38→21:21)
[2018-09-03 12:00] VITALS: BP 138/74
--- NOTE | 2018-09-03 12:15 | IPNPDOC ---
Text Note Date of Service The patient was seen on 09/03/18. NOTE Subjective: Dyspnea continues to improve. No CP/palpitations. Objective: Vitals: (see below) General: No acute distress, laying comfortably in bed. HEENT: Moist mucous membranes. Neck: No JVD . No lymphadenopathy Cardiac: Irregularly irregular, No murmurs Pulm: Coarse crackles at the bases b/l. No wheezing, rhonchi Abd: NT/ND + BS Ext: 1+ pitting edema bilateral lower extremities. No cyanosis. Distal pulses intact. Labs (see below) Images: CT chest on 08/31/18 Impression: Bilateral pleural effusions, right greater than left. Some mild compressive atelectasis in the right lower lobe. No infiltrate seen. Cholelithiasis. Left coronary artery vascular calcification. Assessment/Plan 1. Acute decompensated systolic heart failure EF of 30%. Has not been taking any diuretics at home. Noncompliant with low-sodium diet and fluid resection. Symptomatically improving with Lasix. Continue beta paco, CATALINA inhibitor,. Add spironolactone. Decrease to Lasix IV daily. Dr. Fisehr on consult, and we'll be looking into outpatient cardiac catheterization for patient. 2. Nonsustained ventricular tachycardia-on metoprolol, started on amiodarone by Dr. fisher. Patient will eventually need outpatient cardiac cath set up. K replaced. Appreciate 's input. 3. Hypokalemia replaced. 4. History of CAD status post PCI 2 in 2009. Continue meds. 5. History of atrial fibrillation. Rate controlled. Continue metoprolol, on eliquis. Metoprolol dose increased. 6. Chronic hypoxic respiratory failure. On 1.5 L home O2 at baseline. DVT prophy:on eliquis Overall prognosis guarded. We'll continue IV diuresis. CM working on eliquis outpt. VS,Fishbone, I+O VS, Fishbone, I+O Laboratory Tests 09/02/18 16:50 Calcium Level 8.7 L 09/03/18 05:08 Calcium Level 8.8, Red Blood Count 4.95, Mean Corpuscular Volume 88.7, Mean Corpuscular Hemoglobin 28.5, Mean Corpuscular Hemoglobin Concent 32.1, Red Cell Distribution Width 14.7 H Vital Signs Date Time Temp Pulse Resp B/P (MAP) Pulse Ox O2 Delivery O2 Flow Rate FiO2 09/03/18 09:38 98 134/85 09/03/18 08:00 1.0 09/03/18 07:51 98.0 20 100 08/31/18 01:02 Nasal Cannula I&O- Last 24 Hours up to 6 AM 09/03/18 06:00 Intake Total 1090 ml Output Total 2450 ml Balance -1360 ml LEIGH ANN TREVINO MD Sep 03, 2018 12:15
--- NOTE | 2018-09-03 15:23 | IPN ---
DATE: 09/03/2018 Mr. Downey continues to complain about dyspnea. He also has very hard time sleeping. Cannot quite explain why but admits that it is difficult for him to lay flat. He had similar problems at home. Denies any chest pain. Vital signs: Blood pressure 135/85, heart rate has been from 90s to 120s atrial fibrillation. He is afebrile. Saturation is 99-100% on 1 liter of oxygen. Fluid balance yesterday was documented negative 2200, today though he is only about 500 mL negative by noon. Weight is documented at 109.3 kg, which is 4 kg down compared to 3 days ago. He is alert and oriented and appropriate. His jugular venous pressure is very high. Lungs reveal decreased breath sounds over bases. No wheezing or crackles. Heart exam reveals irregularly irregular rhythm. Abdomen is obese but soft. There is about 2 to 3+ edema to his knees. Neurologically, he is intact. LABORATORY ELIZALDE: Basic metabolic panel: Sodium 134, potassium 3.7, BUN 28, creatinine 1.0, glucose 114. CBC: Hemoglobin 14.9, hematocrit 43, platelet count 174,000. ASSESSMENT/PLAN: Mr. Downey is a 68-year-old man who has ischemic cardiomyopathy with moderately severe left ventricular systolic dysfunction and chronic atrial fibrillation. He presented with congestive heart failure that is acutely exacerbated likely due to poor medication compliance. As far as the atrial fibrillation is concerned, he has been anticoagulated with apixaban. The rate is still not well-controlled on 200 mg of metoprolol twice a day and I am going to increase the dose to 100 mg three times a day. As far as the heart failure is concerned, he continues to be grossly volume overloaded. Consequently, I am going to increase the dose of furosemide to twice a day and continue spironolactone. He was complaining to me about his fluid restrictions of 1200 mL a day. In my opinion, this is way too aggressive and probably not going to be tolerated by the patient. Guidelines recommend fluid restrictions between 5885-4746 mL a day unless you have severe hyponatremia, which he does not, I am going to release the fluid restrictions to 1800 mL a day.
[2018-09-03 16:00] VITALS: BP 128/82
[2018-09-03] MEDS: FUROSEMIDE 40 MG/4 ML VIAL (J1940) IV SCH (18:05)
[2018-09-03 20:00] VITALS: BP 105/65
[2018-09-03] MEDS: ATORVASTATIN 10 MG TAB PO SCH (21:21)
[2018-09-03 23:59] VITALS: BP 127/91
[2018-09-04] VITALS (7 sets, daily range): BP systolic 102–153; BP diastolic 60–98
[2018-09-04] MEDS ORDERED: FUROSEMIDE 40 MG/4 ML VIAL (J1940) IV SCH
[2018-09-04] MEDS: METOPROLOL TARTRATE 100 MG TAB PO SCH ×3 (05:26→21:43)
[2018-09-04] MEDS: SLF 3 ML SYR IV SCH ×3 (05:27→21:43)
[2018-09-04 05:40] LABS: HEMATOCRIT 44.2 % (42.0-52.0); HEMOGLOBIN 14.2 g/dl (13.5-17.5); MEAN CORPUSCULAR HEMOGLOBIN 28.7 pg (27.0-33.0); MEAN CORPUSCULAR HGB CONC 32.1 g/dl (32.0-36.5); MEAN CORPUSCULAR VOLUME 89.3 fl (80.0-96.0); PLATELET COUNT, AUTOMATED 188 10^3/uL (150-450); RED BLOOD COUNT 4.95 10^6/uL (4.30-6.10); WHITE BLOOD COUNT 8.6 10^3/uL (4.0-10.0)
[2018-09-04 06:11] LABS: BLOOD UREA NITROGEN 31 MG/DL (7-18); CALCIUM LEVEL 8.9 MG/DL (8.8-10.2); CARBON DIOXIDE LEVEL 29 MEQ/L (21-32); CHLORIDE LEVEL 107 MEQ/L (98-107); CREATININE FOR GFR 1.09 MG/DL (0.70-1.30); GLOMERULAR FILTRATION RATE > 60.0 (>49); GLUCOSE, FASTING 101 MG/DL (70-100); POTASSIUM SERUM 3.9 MEQ/L (3.5-5.1); SODIUM LEVEL 143 MEQ/L (136-145)
[2018-09-04] MEDS: SPIRONOLACTONE 12.5MG PER 1/2 TABLET PO SCH (09:15)
[2018-09-04] MEDS: RAMIPRIL 5 MG CAP PO SCH (09:15)
[2018-09-04] MEDS: APIXABAN 5 MG TAB (ELIQUIS) PO SCH ×2 (09:16→21:42)
[2018-09-04] MEDS: FUROSEMIDE 40 MG/4 ML VIAL (J1940) IV SCH (09:16)
[2018-09-04] MEDS: DOXYCYCLINE HYCLATE 100 MG TAB PO SCH ×2 (09:16→21:41)
--- NOTE | 2018-09-04 11:18 | IPNPDOC ---
Text Note Date of Service The patient was seen on 09/04/18. NOTE Subjective: No acute changes overnight. Still has LE edema. No CP/palpitations. Objective: Vitals: (see below) General: No acute distress, laying comfortably in bed. HEENT: Moist mucous membranes. Neck: No JVD . No lymphadenopathy Cardiac: Irregularly irregular, No murmurs Pulm: Coarse crackles at the bases b/l. No wheezing, rhonchi Abd: NT/ND + BS Ext: 1+ pitting edema bilateral lower extremities. No cyanosis. Distal pulses intact. Labs (see below) Images: CT chest on 08/31/18 Impression: Bilateral pleural effusions, right greater than left. Some mild compressive atelectasis in the right lower lobe. No infiltrate seen. Cholelithiasis. Left coronary artery vascular calcification. Assessment/Plan 1. Acute decompensated systolic heart failure EF of 30%. Has not been taking any diuretics at home. Noncompliant with low-sodium diet and fluid resection. Sympto matically improving with Lasix. Continue beta paco, CATALINA inhibitor,. spironolactone. Lasix dose adjusted by cardio. Dr. Fisher on consult, and we'll be looking into outpatient cardiac catheterization for patient. 2. Nonsustained ventricular tachycardia-on metoprolol, started on amiodarone temporarily by Dr. Fisher as BB dose is titrated. Patient will eventually need outpatient cardiac cath set up. K replaced. Appreciate 's input. 3. Hypokalemia replaced. 4. History of CAD status post PCI 2 in 2009. Continue meds. 5. History of atrial fibrillation. Rate controlled. Continue metoprolol, on e liquis. Metoprolol dose increased by cardio. 6. Chronic hypoxic respiratory failure. On 1.5 L home O2 at baseline. DVT prophy:on eliquis Overall prognosis guarded. We'll continue IV diuresis. CM working on eliquis outpt. VS,Fishbone, I+O VS, Fishbone, I+O Laboratory Tests 09/04/18 05:07 Red Blood Count 4.95, Mean Corpuscular Volume 89.3, Mean Corpuscular Hemoglobin 28.7, Mean Corpuscular Hemoglobin Concent 32.1, Red Cell Distribution Width 14.6 H, Calcium Level 8.9 Vital Signs Date Time Temp Pulse Resp B/P (MAP) Pulse Ox O2 Delivery O2 Flow Rate FiO2 09/04/18 09:15 153/96 09/04/18 08:00 1.0 09/04/18 08:00 97.4 96 20 99 08/31/18 01:02 Nasal Cannula I&O- Last 24 Hours up to 6 AM 09/04/18 06:00 Intake Total 900 ml Output Total 1975 ml Balance -1075 ml LEIGH ANN TREVINO MD Sep 04, 2018 11:17
[2018-09-04] MEDS ORDERED: POTASSIUM CHLORIDE 10 MEQ SR TABLET PO ONE (12:00)
[2018-09-04] MEDS: FUROSEMIDE 100 MG/10 ML VIAL (J1940) IV SCH (17:11)
[2018-09-04] MEDS: ATORVASTATIN 10 MG TAB PO SCH (21:42)
[2018-09-04] MEDS: RAMELTEON 8 MG TAB (ROZEREM) PO SCH (21:42)
[2018-09-05 04:00] VITALS: BP 118/75
[2018-09-05 05:47] LABS: HEMATOCRIT 43.8 % (42.0-52.0); HEMOGLOBIN 14.1 g/dl (13.5-17.5); MEAN CORPUSCULAR HEMOGLOBIN 28.3 pg (27.0-33.0); MEAN CORPUSCULAR HGB CONC 32.2 g/dl (32.0-36.5); MEAN CORPUSCULAR VOLUME 87.8 fl (80.0-96.0); PLATELET COUNT, AUTOMATED 193 10^3/uL (150-450); RED BLOOD COUNT 4.99 10^6/uL (4.30-6.10); WHITE BLOOD COUNT 8.5 10^3/uL (4.0-10.0)
[2018-09-05] MEDS: SLF 3 ML SYR IV SCH ×3 (06:00→21:24)
[2018-09-05] MEDS: METOPROLOL TARTRATE 100 MG TAB PO SCH ×3 (06:04→21:24)
[2018-09-05 06:05] LABS: BLOOD UREA NITROGEN 31 MG/DL (7-18); CALCIUM LEVEL 8.8 MG/DL (8.8-10.2); CARBON DIOXIDE LEVEL 28 MEQ/L (21-32); CHLORIDE LEVEL 105 MEQ/L (98-107); CREATININE FOR GFR 1.19 MG/DL (0.70-1.30); GLOMERULAR FILTRATION RATE > 60.0 (>49); GLUCOSE, FASTING 189 MG/DL (70-100); POTASSIUM SERUM 3.5 MEQ/L (3.5-5.1); SODIUM LEVEL 142 MEQ/L (136-145)
--- NOTE | 2018-09-05 06:57 | IPN ---
DATE: 09/04/2018 Mr. Downey tells me that he feels a little bit better. He had a little less dyspnea and was able to sleep. On telemetry monitoring, his heart rate is much better controlled. He had a brief run of nonsustained ventricular tachycardia (VT) last night. No other problems. Vital Signs: Blood pressure 153/96. Heart rate has been in the 80s. He is afebrile. Saturation 99% on 2 liters of oxygen by nasal cannula. Fluid balance yesterday was documented about negative 1200, yet his weight is unchanged. It is likely that his oral intake was not properly documented. He is alert and oriented and appropriate. His jugular venous pulse (JVP) does not appear grossly increased. Lungs are clear. Good air movement. Heart exam reveals irregularly irregular rhythm. No gallop. Abdomen is obese but soft. He still has about 2+ edema to his knees. Neurologically he is intact. Laboratories: Sodium 143, potassium 3.9, BUN 31, creatinine 1.1, glucose 101 and calcium 8.9. CBC is normal. His current medications include furosemide 40 mg twice a day IV, metoprolol 100 three times a day, spironolactone 12.5 a day, ramipril 5 mg a day and apixaban 5 mg twice a day ASSESSMENT/PLAN: Mr. Downey is a 68-year-old man who has ischemic cardiomyopathy and severe left ventricular systolic dysfunction. He also has chronic atrial fibrillation. He presented with acutely exacerbated congestive heart failure, most likely at least in part due to poor medication compliance. His heart rate was not well controlled, but now when I increased the dose of metoprolol further it seems much better. He also seemed to be diuresing but too slowly. His fluid balance yesterday was probably not very negative and consequently I am going to increase the dose of loop diuretic to 80 mg twice a day. I will give him supplemental potassium. Unfortunately, it will probably take several more days before he will become euvolemic. We will continue sodium and fluid restrictions.
[2018-09-05 07:51] VITALS: BP 129/93
[2018-09-05] MEDS: RAMIPRIL 5 MG CAP PO SCH (08:51)
[2018-09-05] MEDS: SPIRONOLACTONE 12.5MG PER 1/2 TABLET PO SCH (08:51)
[2018-09-05] MEDS: DOXYCYCLINE HYCLATE 100 MG TAB PO SCH ×2 (08:51→21:23)
[2018-09-05] MEDS: APIXABAN 5 MG TAB (ELIQUIS) PO SCH ×2 (08:51→21:22)
[2018-09-05] MEDS ORDERED: POTASSIUM CHLORIDE 10 MEQ SR TABLET PO ONE (09:00)
[2018-09-05] MEDS: FUROSEMIDE 100 MG/10 ML VIAL (J1940) IV SCH ×2 (09:38→17:43)
--- NOTE | 2018-09-05 10:02 | IPN ---
DATE: 09/05/2018 Mr. Forde tells me that he is feeling little bit better. There is less edema but he still gets short of breath easily. I saw him just when he walked to the bathroom and back and he was visibly short of breath. His heart rate is better. He is typically in 80s and 90s. He remains in atrial fibrillation. He is afebrile. Blood pressure 129/93, heart rate 100% on 1 liter of oxygen. Fluid balance yesterday was 1900 mL negative. Weight is 107.6 kg, which is only about 3 kg down since admission. He is alert and oriented appropriate. His jugular venous pulse (JVP) is still high even though it is somewhat difficult to assess with his stewart. Lungs are clear. Heart exam reveals irregular rhythm. There is a murmur at the apex not very prominent. No gallop. Abdomen is obese but soft. There is still about 1-2+ edema to mid shins. Laboratory ramos: Normal CBC and normal basic metabolic panel with slightly low potassium at 3.5. Creatinine is 1.2 and glucose 189. ASSESSMENT AND PLAN: Mr. Forde is a 68-year-old man, who has ischemic cardiomyopathy with severe left ventricular systolic dysfunction and chronic atrial fibrillation. He came in acutely exacerbated state probably at least in part due to medication noncompliance. As far as atrial fibrillation (AFib) is concerned, he is now well controlled rate ramos and he has been chronically anticoagulated. As far as the heart failure is concerned, he is still not euvolemic. He currently is receiving furosemide 80 mg IV twice a day, plus spironolactone 12.5 mg and plus 5 mg of ramipril. His blood pressure is a becoming a little bit soft but still will have space to increased medication if necessary. At this point, I would continue current therapies. He probably is not a good candidate for Entresto because of its prohibitive cost on outpatient basis. We will see how his condition is when he becomes euvolemic, which in my opinion will require several more days.
[2018-09-05 12:00] VITALS: BP 130/88
--- NOTE | 2018-09-05 14:29 | IPNPDOC ---
Text Note Date of Service The patient was seen on 09/05/18. NOTE Subjective: No acute changes overnight. Still has LE edema. No significant d yspnea. No CP/palpitations. Objective: Vitals: (see below) General: No acute distress, laying comfortably in bed. HEENT: Moist mucous membranes. Neck: No JVD . No lymphadenopathy Cardiac: Irregularly irregular, No murmurs Pulm: Coarse crackles at the bases b/l. No wheezing, rhonchi Abd: NT/ND + BS Ext: 1+ pitting edema bilateral lower extremities. No cyanosis. Distal pulses intact. Labs (see below) Images: CT chest on 08/31/18 Impression: Bilateral pleural effusions, right greater than left. Some mild compressive atelectasis in the right lower lobe. No infiltrate seen. Cholelithiasis. Left coronary artery vascular calcification. Assessment/Plan 1. Acute decompensated systolic heart failure EF of 30%. Has not been taking any diuretics at home. Noncompliant with low-sodium diet and fluid resection. Symptomatically improving with Lasix. Continue beta paco, CATALINA inhibitor,. spironolactone. Lasix dose adjusted by cardio. Dr. Fisher on consult, and we'll be looking into outpatient cardiac catheterization for patient. Pt now up to Lasix 80mg IV BID. On metoprolol 100mg PO q8h. 2. Nonsustained ventricular tachycardia-on metoprolol, started on amiodarone temporarily by Dr. Fisher as BB dose is titrated. Patient will eventually need outpatient cardiac cath set up. K replaced. Appreciate 's input. 3. Hypokalemia replaced. 4. History of CAD status post PCI 2 in 2009. Continue meds. 5. History of atrial fibrillation. Rate controlled. Continue metoprolol, on eliquis. Metoprolol dose increased by cardio. 6. Chronic hypoxic respiratory failure. On 1.5 L home O2 at baseline. DVT prophy:on eliquis Overall prognosis guarded. We'll continue IV diuresis. CM working on eliquis outpt. VS,Fishbone, I+O VS, Fishbone, I+O Laboratory Tests 09/05/18 05:05 Red Blood Count 4.99, Mean Corpuscular Volume 87.8, Mean Corpuscular Hemoglobin 28.3, Mean Corpuscular Hemoglobin Concent 32.2, Red Cell Distribution Width 14.5, Calcium Level 8.8 Vital Signs Date Time Temp Pulse Resp B/P (MAP) Pulse Ox O2 Delivery O2 Flow Rate FiO2 09/05/18 14:09 89 113/80 09/05/18 12:00 1.0 09/05/18 07:51 97.6 22 100 08/31/18 01:02 Nasal Cannula I&O- Last 24 Hours up to 6 AM 09/05/18 06:00 Intake Total 360 ml Output Total 2500 ml Balance -2140 ml LEIGH ANN TREVINO MD Sep 05, 2018 14:29
[2018-09-05 16:00] VITALS: BP 118/74
[2018-09-05 20:00] VITALS: BP 117/80
[2018-09-05] MEDS: RAMELTEON 8 MG TAB (ROZEREM) PO SCH (21:22)
[2018-09-05] MEDS: ATORVASTATIN 10 MG TAB PO SCH (21:23)
[2018-09-05 23:59] VITALS: BP 116/61
[2018-09-06 03:22] VITALS: BP 114/76
[2018-09-06 05:59] LABS: HEMATOCRIT 40.8 % (42.0-52.0); HEMOGLOBIN 13.5 g/dl (13.5-17.5); MEAN CORPUSCULAR HEMOGLOBIN 28.6 pg (27.0-33.0); MEAN CORPUSCULAR HGB CONC 33.1 g/dl (32.0-36.5); MEAN CORPUSCULAR VOLUME 86.4 fl (80.0-96.0); PLATELET COUNT, AUTOMATED 175 10^3/uL (150-450); RED BLOOD COUNT 4.72 10^6/uL (4.30-6.10); WHITE BLOOD COUNT 8.2 10^3/uL (4.0-10.0)
[2018-09-06] MEDS: METOPROLOL TARTRATE 100 MG TAB PO SCH ×3 (06:00→21:11)
[2018-09-06] MEDS: SLF 3 ML SYR IV SCH ×3 (06:00→22:00)
[2018-09-06 06:05] VITALS: BP 98/56
[2018-09-06 06:10] LABS: BLOOD UREA NITROGEN 27 MG/DL (7-18); CALCIUM LEVEL 8.6 MG/DL (8.8-10.2); CARBON DIOXIDE LEVEL 30 MEQ/L (21-32); CHLORIDE LEVEL 106 MEQ/L (98-107); CREATININE FOR GFR 0.98 MG/DL (0.70-1.30); GLOMERULAR FILTRATION RATE > 60.0 (>49); GLUCOSE, FASTING 93 MG/DL (70-100); POTASSIUM SERUM 3.2 MEQ/L (3.5-5.1); SODIUM LEVEL 143 MEQ/L (136-145)
[2018-09-06 08:00] VITALS: BP 140/83
[2018-09-06] MEDS: POTASSIUM CHLORIDE 10 MEQ SR TABLET PO ONE ×2 (08:15→09:35)
[2018-09-06] MEDS ORDERED: POTASSIUM CHLORIDE 10 MEQ SR TABLET PO ONE (08:15)
[2018-09-06 08:29] LABS: MAGNESIUM LEVEL 1.7 MG/DL (1.8-2.4)
--- NOTE | 2018-09-06 08:56 | IPN ---
DATE: 09/06/2018 Mr. Downey is feeling better. He had good diuretic response yesterday. He feels less short of breath and peripheral edema has improved as well. He denies any chest pain. He had run of nonsustained ventricular tachycardia last night, it was asymptomatic. Vital signs this morning: Blood pressure is only 98/56, heart rate is from 70s to 90s. He is afebrile. Saturation is 98% on 1 liter of oxygen by nasal cannula. His fluid balance yesterday was documented as negative 1300, but his weight is down almost 4 kg at 103.7. He is alert and oriented appropriate. His jugular venous pressure is not grossly elevated, only maybe 2 cm over clavicle. Lungs sound clear to auscultation with good air movement. Heart exam reveals irregularly irregular rhythm. No gallop, rub or murmur is appreciated today. Abdomen is obese but soft. There is still about 1+ edema on the left lower extremity and right lower extremity, overall much improved though. Neurologically, he is intact. Basic metabolic panel is normal but for potassium 3.2. ASSESSMENT/PLAN: Mr. Downey is a 68-year-old man who has ischemic cardiomyopathy and chronic atrial fibrillation. He presented with exacerbated congestive heart failure, which would be qualified as acute on chronic systolic. He has been diuresed so far relatively successfully. I am somewhat concerned about the run of nonsustained VT last night because he is DO NOT RESUSCITATE, DO NOT INTUBATE, but will pay more attention to potassium. He is mildly hypokalemic today so not only I am going to give him supplemental potassium, but also increase the dose of spironolactone. As far as the rate control is concerned, he is on metoprolol 100 mg three times a day, the dose was held this morning because his blood pressure was soft, but I am hoping that he will get most of the doses. Overall he is improving and I hoping that he will be able to go home within the next few days. Dr. Fisher should be available tomorrow to see him.
[2018-09-06] MEDS: RAMIPRIL 5 MG CAP PO SCH (09:30)
[2018-09-06] MEDS: APIXABAN 5 MG TAB (ELIQUIS) PO SCH ×2 (09:35→20:50)
[2018-09-06] MEDS: DOXYCYCLINE HYCLATE 100 MG TAB PO SCH ×2 (09:37→20:50)
[2018-09-06] MEDS: FUROSEMIDE 100 MG/10 ML VIAL (J1940) IV SCH ×2 (09:37→17:42)
[2018-09-06] MEDS: SPIRONOLACTONE 25 MG TAB PO SCH (09:40)
[2018-09-06 12:00] VITALS: BP 130/78
[2018-09-06 16:00] VITALS: BP 111/79
[2018-09-06 20:00] VITALS: BP 112/71
[2018-09-06] MEDS: ATORVASTATIN 10 MG TAB PO SCH (20:50)
[2018-09-06] MEDS: RAMELTEON 8 MG TAB (ROZEREM) PO SCH (20:50)
[2018-09-07] VITALS: BP 122/87
[2018-09-07 04:00] VITALS: BP 103/61
[2018-09-07] MEDS: SLF 3 ML SYR IV SCH ×3 (05:59→21:32)
[2018-09-07] MEDS: METOPROLOL TARTRATE 100 MG TAB PO SCH ×3 (05:59→21:32)
[2018-09-07 06:18] LABS: HEMATOCRIT 43.2 % (42.0-52.0); HEMOGLOBIN 14.3 g/dl (13.5-17.5); MEAN CORPUSCULAR HEMOGLOBIN 28.7 pg (27.0-33.0); MEAN CORPUSCULAR HGB CONC 33.1 g/dl (32.0-36.5); MEAN CORPUSCULAR VOLUME 86.6 fl (80.0-96.0); PLATELET COUNT, AUTOMATED 192 10^3/uL (150-450); RED BLOOD COUNT 4.99 10^6/uL (4.30-6.10); WHITE BLOOD COUNT 8.5 10^3/uL (4.0-10.0)
[2018-09-07 06:39] LABS: BLOOD UREA NITROGEN 26 MG/DL (7-18); CALCIUM LEVEL 8.5 MG/DL (8.8-10.2); CARBON DIOXIDE LEVEL 31 MEQ/L (21-32); CHLORIDE LEVEL 103 MEQ/L (98-107); GLOMERULAR FILTRATION RATE > 60.0 (>49); GLUCOSE, FASTING 114 MG/DL (70-100); MAGNESIUM LEVEL 1.9 MG/DL (1.8-2.4); POTASSIUM SERUM 3.2 MEQ/L (3.5-5.1); SODIUM LEVEL 142 MEQ/L (136-145)
--- NOTE | 2018-09-07 06:52 | IPN ---
DATE: 09/06/2018 Patient seen and examined, reporting improved respirations. Denies any chest pain, pressure or discomfort. VITAL SIGNS: Temperature 98, pulse 97, respirations 20, blood pressure 111/79, pulse oximetry 96% on room air. LABORATORIES: WBC 8.2, hemoglobin and hematocrit 13.5/40.8, platelets 175. Chemistries - sodium 143, potassium 3.2, chloride 106, bicarb 30, BUN 27, creatinine 0.98. PHYSICAL EXAMINATION: GENERAL: Patient comfortable in no acute distress. HEENT: Moist mucous membranes. NECK: Supple. CARDIAC: Irregularly irregular. S1, S2. PULMONARY: Coarse breath sounds bilaterally, no wheeze or rhonchi. ABDOMEN: Soft, nontender. EXTREMITIES: 1+ edema bilateral lower extremities. ASSESSMENT/PLAN: This is a 68-year-old male patient with underlying medical history of pulmonary artery hypertension, obstructive sleep apnea (SYDNEE), newly diagnosed congestive heart failure (CHF), coronary artery disease, and atrial fibrillation, who presented with shortness of breath, found to have atrial fibrillation with rapid ventricular response (RVR). PROBLEMS: 1. Acute decompensated systolic congestive heart failure (CHF) with ejection fraction of 30%. Low sodium diet. Cardiology consulted. As per case packer continue Lasix 80 mg IV twice a day, continue spironolactone, ramipril, metoprolol. Recent echo appreciated. Patient on Eliquis. Further recommendations as per cardiology. Patient likely will need outpatient cardiac catheterization. 2. Nonsustained ventricular tachycardia. Patient on metoprolol. Temporarily started on amiodarone. Cardiology consulted. Follow-up electrolytes. 3. Hypokalemia, replaced. 4. Coronary artery disease. Patient had a percutaneous coronary intervention (PCI) in 2009. Continue Eliquis, statin, metoprolol, ramipril. 5. Atrial fibrillation. Continue Eliquis and metoprolol. Cardiology consulted. 6. Chronic hypoxic respiratory failure on 1.5 liters of oxygen at home. 7. Pulmonary artery hypertension. Likely will need sleep study. Will try to arrange for a sleep study as an outpatient. 8. Deep vein thrombosis (DVT) prophylaxis. Patient is on Eliquis. DISPOSITION: Patient poorly compliant. 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
[2018-09-07 08:00] VITALS: BP 104/69
[2018-09-07] MEDS ORDERED: POTASSIUM CHLORIDE 10 MEQ SR TABLET PO ONE (08:00)
[2018-09-07] MEDS: APIXABAN 5 MG TAB (ELIQUIS) PO SCH ×2 (08:30→21:31)
[2018-09-07] MEDS: FUROSEMIDE 100 MG/10 ML VIAL (J1940) IV SCH ×2 (08:30→16:13)
[2018-09-07] MEDS: DOXYCYCLINE HYCLATE 100 MG TAB PO SCH (08:30)
[2018-09-07] MEDS: SPIRONOLACTONE 25 MG TAB PO SCH (08:30)
[2018-09-07] MEDS: RAMIPRIL 5 MG CAP PO SCH (08:31)
--- NOTE | 2018-09-07 08:40 | IPN ---
DATE: 09/07/2018 Mr. Downey is feeling better as far as his breathing is concerned, but unfortunately he reports that he has difficulty peeing, he has to strain and he says it is difficult to empty his bladder. He denies any chest pain or palpitations. Vital signs: Blood pressure 120/65, heart rate has been from 70s to 90s, atrial fibrillation. His fluid balance yesterday was negative 2600. Documented weight is 102.9 kg which is approximately 8 kg weight loss since admission. He is alert and oriented and appropriate. His jugular venous pulse (JVP) is no longer dramatically elevated, I would say maybe a centimeter or two. Lungs are clear. Heart exam reveals irregularly irregular rhythm without gallop. Abdomen is obese but soft. He still has edema but it is down to 1+ around ankles. Neurologically he is intact. LABORATORY: Basic metabolic panel is normal but for hypokalemia is 3.2. CBC is normal. ASSESSMENT AND PLAN: Mr. Downey is a 68-year-old man who has chronic atrial fibrillation and ischemic cardiomyopathy and presented with exacerbated systolic heart failure. He has been responding favorably to diuresis and he is approaching euvolemic state. I think that he probably will be ready for discharge tomorrow. I am not going to make any medication changes today and the potassium was already supplemented. The issue with potential urinary retention to be addressed by primary team.
[2018-09-07 12:00] VITALS: BP 132/98
[2018-09-07 16:00] VITALS: BP 111/64
[2018-09-07 20:00] VITALS: BP 103/73
[2018-09-07] MEDS ORDERED: TAMSULOSIN 0.4 MG CAP PO SCH (21:00)
--- NOTE | 2018-09-07 21:16 | IPNPDOC ---
Text Note Date of Service The patient was seen on 09/07/18. NOTE Patient seen and examined, reporting improved respirations. Denies any chest pain, pressure or discomfort. PHYSICAL EXAMINATION: GENERAL: Patient comfortable in no acute distress. HEENT: Moist mucous membranes. NECK: Supple. CARDIAC: Irregularly irregular. S1, S2. PULMONARY: Coarse breath sounds bilaterally, no wheeze or rhonchi. ABDOMEN: Soft, nontender. EXTREMITIES: 1+ edema bilateral lower extremities. ASSESSMENT/PLAN: This is a 68-year-old male patient with underlying medical history of pulmonary artery hypertension, obstructive sleep apnea (SYDNEE), newly diagnosed congestive heart failure (CHF), coronary artery disease, and atrial fibrillation, who presented with shortness of breath, found to have atrial fibrillation with rapid ventricular response (RVR). PROBLEMS: 1. Acute decompensated systolic congestive heart failure (CHF) with ejection fraction of 30%. Low sodium diet. Cardiology consulted. As per macadam raker continue Lasix 80 mg IV twice a day, continue spironolactone, ramipril, metoprolol. Recent echo appreciated. Patient on Eliquis. Further recommendations as per cardiology. Patient likely will need outpatient cardiac catheterization. f/u electrolytes supplement 2. Nonsustained ventricular tachycardia. Patient on metoprolol. Temporarily started on amiodarone. Cardiology consulted. Follow-up electrolytes. 3. Hypokalemia, replaced. 4. Coronary artery disease. Patient had a percutaneous coronary intervention (PCI) in 2009. Continue Eliquis, statin, metoprolol, ramipril. 5. Atrial fibrillation. Continue Eliquis and metoprolol. Cardiology consulted. 6. Chronic hypoxic respiratory failure on 1.5 liters of oxygen at home. 7. Pulmonary artery hypertension. Likely will need sleep study as outpatient 8. Deep vein thrombosis (DVT) prophylaxis. Patient is on Eliquis. DISPOSITION: Patient poorly compliant. 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 dc in 24 hr VS,Fishbone, I+O VS, Fishbone, I+O Laboratory Tests 09/07/18 05:28 Red Blood Count 4.99, Mean Corpuscular Volume 86.6, Mean Corpuscular Hemoglobin 28.7, Mean Corpuscular Hemoglobin Concent 33.1, Red Cell Distribution Width 14.3, Calcium Level 8.5 L Vital Signs Date Time Temp Pulse Resp B/P (MAP) Pulse Ox O2 Delivery O2 Flow Rate FiO2 09/07/18 20:00 98.4 96 18 103/73 (83) 98 09/07/18 16:00 1.0 I&O- Last 24 Hours up to 6 AM 09/07/18 06:00 Intake Total 1080 ml Output Total 3600 ml Balance -2520 ml CRUZ ESPARZA MD Sep 07, 2018 21:16
[2018-09-07] MEDS: RAMELTEON 8 MG TAB (ROZEREM) PO SCH (21:31)
[2018-09-07] MEDS: ATORVASTATIN 10 MG TAB PO SCH (21:31)
[2018-09-08] VITALS: BP 128/85
[2018-09-08 04:00] VITALS: BP 111/63
[2018-09-08 05:36] LABS: HEMATOCRIT 44.6 % (42.0-52.0); HEMOGLOBIN 14.6 g/dl (13.5-17.5); MEAN CORPUSCULAR HEMOGLOBIN 28.7 pg (27.0-33.0); MEAN CORPUSCULAR HGB CONC 32.7 g/dl (32.0-36.5); MEAN CORPUSCULAR VOLUME 87.6 fl (80.0-96.0); PLATELET COUNT, AUTOMATED 165 10^3/uL (150-450); RED BLOOD COUNT 5.09 10^6/uL (4.30-6.10); WHITE BLOOD COUNT 7.5 10^3/uL (4.0-10.0)
[2018-09-08] MEDS: METOPROLOL TARTRATE 100 MG TAB PO SCH ×2 (05:45→13:30)
[2018-09-08] MEDS: SLF 3 ML SYR IV SCH ×2 (05:45→13:30)
[2018-09-08 05:55] LABS: BLOOD UREA NITROGEN 27 MG/DL (7-18); CALCIUM LEVEL 8.5 MG/DL (8.8-10.2); CARBON DIOXIDE LEVEL 32 MEQ/L (21-32); CHLORIDE LEVEL 105 MEQ/L (98-107); CREATININE FOR GFR 0.96 MG/DL (0.70-1.30); GLOMERULAR FILTRATION RATE > 60.0 (>49); GLUCOSE, FASTING 126 MG/DL (70-100); MAGNESIUM LEVEL 1.9 MG/DL (1.8-2.4); POTASSIUM SERUM 3.1 MEQ/L (3.5-5.1); SODIUM LEVEL 143 MEQ/L (136-145)
[2018-09-08] MEDS ORDERED: POTASSIUM CHLORIDE 10 MEQ SR TABLET PO ONE (06:15)
[2018-09-08 08:00] VITALS: BP 97/69
[2018-09-08] MEDS: RAMIPRIL 5 MG CAP PO SCH (08:27)
[2018-09-08] MEDS: SPIRONOLACTONE 25 MG TAB PO SCH (08:34)
[2018-09-08] MEDS: FUROSEMIDE 100 MG/10 ML VIAL (J1940) IV SCH (08:34)
[2018-09-08] MEDS: APIXABAN 5 MG TAB (ELIQUIS) PO SCH (08:34)
--- NOTE | 2018-09-08 08:43 | IPN ---
DATE: 09/08/2018 The patient was feeling better. He had another day when he diuresed a lot yesterday. At this point, he is quite comfortable. Vital signs: Blood pressure 111/63, heart rate has been 90s. He is afebrile. Saturation 99% on 1 liter of oxygen. Fluid balance yesterday was documented negative 2100. Weight is 97.3 kg. With an admission weight 111 kg that would be 14 kg weight loss since admission. He is alert and oriented and appropriate. His jugular venous pressure is not high. Lungs are clear. I do not appreciate any wheezing, crackles or rhonchi. Heart exam reveals a irregularly irregular rhythm. No gallop or rub. Abdomen is soft. The edema is essentially completely gone. Basic metabolic panel: Sodium 143, potassium 3.1, BUN 27, creatinine 0.96 and glucose 126. CBC is normal. ASSESSMENT: Mr. Downey is a 68-year-old man who has ischemic cardiomyopathy with severe left ventricular systolic dysfunction and atrial fibrillation. He presented with acutely exacerbated systolic congestive heart failure. At this point, I believe that he can go home. He seems reasonably euvolemic to me. As far as discharge medications are concerned, I would probably discharge him on 40 mg of furosemide a day with instructions to promptly double the dose should there be any weight gain or edema. The remaining medications I would leave unchanged. He tends to run quite hypokalemic but I suspect that is principally due to very vigorous diuresis in the last few days. I will arrange for outpatient appointment with Dr. Fisher. He should be seen within 1 week. The patient tells me that apparently he received a fairly high bill and he may not want to see him again for that reason. Alternatively then, followup with primary care physician can be arranged.
[2018-09-08 12:00] VITALS: BP 106/78
[2018-09-08 13:30] VITALS: BP 101/65
[2018-09-08] MEDS ORDERED: FLOM0.4C39 PO (14:14)
[2018-09-08] MEDS ORDERED: LASI40TA9 PO (14:14)
[2018-09-08] MEDS ORDERED: ALDA25TA2 PO (14:14)
[2018-09-08] MEDS ORDERED: LOPR1TAB7 PO (14:14)
[2018-09-08] MEDS ORDERED: K-TA1TAB PO (14:16)
[2018-09-08] MEDS ORDERED: POTASSIUM CHLORIDE 10 MEQ SR TABLET PO SCH (16:00)
--- NOTE | 2018-09-08 21:02 | DSES ---
DATE OF ADMISSION: 08/30/2018 DATE OF DISCHARGE: 09/08/2018 PRIMARY CARE PROVIDER: Dr. Ata Trevizo CHIEF TECHNICIAN X RAY: Dr. Fisher, covered by Dr. Carmona FINAL DIAGNOSES: 1. Acute decompensated systolic congestive heart failure (CHF), ejection fraction 30%. 2. Hypokalemia. 3. Coronary artery disease. 4. Atrial fibrillation. 5. Chronic hypoxic respiratory failure. 6. Pulmonary artery hypertension. HISTORY OF PRESENT ILLNESS: This is a 68-year-old male patient with underlying medical history of coronary arterial disease, newly diagnosed congestive heart failure (CHF) with systolic dysfunction, atrial fibrillation, who presented with shortness of breath for a few days and was found to have atrial fibrillation. Echo was done, consistent with CHF. The patient was previously here in July for shortness of breath and found to have atrial fibrillation. Echo was done and findings were consistent with CHF. The patient was discharged with Eliquis and metoprolol; however, since the patient was discharged, the patient also had occasional shortness of breath, worsened over the past 2 days with increasing oxygen need at home. Subsequently, the patient is seeking further medical help. Denies any fevers or chills, chest pain, pressure or discomfort. Denies any palpitations, nausea, vomiting. Reported orthopnea, mild lower extremity swelling. HOSPITAL COURSE: The patient was admitted to the hospital. Cardiology consulted. The patient was aggressively diuresed. Oxygen was provided. Telemetry monitoring was appreciated. Temporarily started on amiodarone for nonsustained ventricular tachycardia, later was discontinued. The patient's metoprolol was increased. The patient was diuresing appropriately. Respirations progressively improved. Passed physical therapy (PT). Currently is comfortable. Furthermore, prior to discharge, family had mentioned that the patient is slowly leaning towards more of a comfort oriented care, but they have questions about whether the patient can get CPAP at home to see if that will improve his comfort. Case was discussed with outpatient provider doctor, Dr. Santana and Dr. Trevizo, informed of the patient's wishes and decisions and who will be following the patient's further wishes for comfort measures and hospice care and for possible CPAP. Medical Orders for Life Sustaining Treatment (MOLST) form was completed. The patient was made DO NOT RESUSCITATE, DO NOT INTUBATE with comfort measures only. VITAL SIGNS: Temperature 98.4, pulse 75, respirations 18, blood pressure 101/65. Pulse oximetry 98% on 1 liter nasal cannula. LABORATORY DATA: WBC 7.5, hemoglobin and hematocrit 14.6/44.6, platelets 165. Chemistry: Sodium 143, potassium 3.1, chloride 105, bicarbonate 32, BUN 27, creatinine 0.96. DISCHARGE MEDICATIONS: - Lasix 40 mg by mouth daily - metoprolol 100 mg by mouth every 8 hours - potassium chloride 20 mEq by mouth daily - spironolactone 25 mg by mouth daily - Flomax 0.4 mg by mouth at night - Eliquis 5 mg by mouth twice a day - Lipitor 10 mg by mouth at night - Ramipril 5 mg by mouth daily - Ubiquinol 100 mg by mouth three times a day DISCHARGE INSTRUCTIONS: Daily weights. Please call provider if weight gain more than 3 pounds. Please see primary care provider in 7 to [address] Fisher, dropper tank storage, in 7 to 14 days. Consider sleep study versus comfort oriented care. Discussed with family goals of care. MOLST form complete. Please check basic metabolic panel (BMP) with primary care provider if desired. Further care as per primary care provider. If symptoms worsen or are out of control, please return to the hospital.
== END 2018-09-08 17:27 | disposition home or self-care (01) | DRG 194 ==
LOC: M ED 18:23 → M ED INP 20:15 → M PCU 08-31 16:00
PROVIDERS: ADMIT Hospitalist; ATTEND Hospitalist
DX: I11.0 Hypertensive heart disease with heart failure (principal); J96.11 Chronic respiratory failure with hypoxia; I27.20 Pulmonary hypertension, unspecified; I48.1 Persistent atrial fibrillation; I48.2 Chronic atrial fibrillation; I50.23 Acute on chronic systolic (congestive) heart failure; I25.10 Atherosclerotic heart disease of native coronary artery without angina pectoris; E87.6 Hypokalemia; I25.2 Old myocardial infarction; Z66 Do not resuscitate; E78.5 Hyperlipidemia, unspecified; I47.2 Ventricular tachycardia; M19.90 Unspecified osteoarthritis, unspecified site; Z95.5 Presence of coronary angioplasty implant and graft; G47.33 Obstructive sleep apnea (adult) (pediatric); Z91.14 Patient's other noncompliance with medication regimen; Z99.81 Dependence on supplemental oxygen; Z79.01 Long term (current) use of anticoagulants; Z79.899 Other long term (current) drug therapy; Z88.0 Allergy status to penicillin; Z91.11 Patient's noncompliance with dietary regimen; I25.5 Ischemic cardiomyopathy

== ENCOUNTER → 2018-09-19 | Outpatient (REF) | payer OTHER ==
[~2018-09-19] MED LIST changes: +ALDA25TA2 PO; +ELIQ5TAB PO; +FLOM0.4C39 PO; +K-TA1TAB PO; +LASI40TA9 PO; +LOPR1TAB7 PO; +METO50TA7 PO
[2018-09-19 12:09] LABS: BLOOD UREA NITROGEN 21 MG/DL (7-18); CALCIUM LEVEL 9.4 MG/DL (8.8-10.2); CARBON DIOXIDE LEVEL 30 MEQ/L (21-32); CHLORIDE LEVEL 102 MEQ/L (98-107); CREATININE FOR GFR 1.15 MG/DL (0.70-1.30); GLOMERULAR FILTRATION RATE > 60.0 (>49); GLUCOSE, FASTING 95 MG/DL (70-100); SODIUM LEVEL 138 MEQ/L (136-145)
== END ==
LOC: M SFHCLERA 10:07
PROVIDERS: ATTEND Family Medicine
DX: I50.21 Acute systolic (congestive) heart failure (principal)

== ENCOUNTER → 2018-10-01 | Outpatient (CLI) | payer SELFPAY ==
--- NOTE | 2018-10-05 00:08 | SLEEPCENT ---
DATE OF PROCEDURE: 10/01/2018 ORDERED BY: Dr. Murcia Nocturnal polysomnography was performed for evaluation of sleep physiology. 8 hours and 2 minutes of data were reviewed. There were 400 minutes of sleep identified. Sleep latency was short at 4 minutes. Rapid eye movement (REM) latency was prolonged at 214 minutes. Sleep architecture was very fragmented; improvement was seen later in the study. Overall sleep efficiency was only 83%. The electrocardiogram showed a sinus appearing rhythm with rate variability. Baseline heart rate was 62 beats per minute. Rate ranged from 56 to 88. EEG showed coarsening in background. No focal events were identified. There were normal waveforms for awake and sleep stages. There were 260 respiratory events identified of 10 seconds in duration or greater for an apnea-hypopnea index 39. Having clearly established the presence of obstructive sleep apnea syndrome, testing was stopped about midnight for the application of pressure therapy. The patient was fit with a ResMed AirFit F30 full face mask of medium size, 5 cm of water pressure were applied to the circuit and the lights were extinguished. Throughout the remaining portion of study, pressure titration was performed. Despite optimal mask fit and minimal air leak, the patient required a change to a bilevel device. Reasonable sleep was seen on an inspiratory pressure of 12 over expiratory of 8. Further increases in pressure to address hypopneas resulted in the emergence of central events. The patient was titrated as high as 15 over 10 and a backup rate was added. On retrospective review of the study, best sleep was seen on a bilevel pressure of 12 over 8. In addition to the obstructive respiratory events, limb activity was scattered over the course of the study. Limb movement arousal index was only 2. IMPRESSION: Severe obstructive sleep apnea syndrome (G47.33). Apnea-hypopnea index 39. RECOMMENDATIONS: Initiation of pressure therapy using a bilevel device inspiratory 12 over expiratory of 8 should be sufficient to address much of the patient's problem if sleep symptoms persist. Referral back to the sleep disorder center for a full night titration may be needed.
== END ==
LOC: M SLEEP 20:00
PROVIDERS: ATTEND Internal Medicine Pulmonary Disease
DX: G47.33 Obstructive sleep apnea (adult) (pediatric) (principal)

== ENCOUNTER → 2018-11-30 | Outpatient (CLI) | payer SELFPAY ==
--- NOTE | 2018-12-02 10:48 | SLEEPCENT ---
DATE OF PROCEDURE: 11/30/2018 ORDERED BY: Dr. Murcia. Nocturnal polysomnography was performed for titration of pressure therapy in this patient with severe complex obstructive sleep apnea syndrome. Apnea-hypopnea index of 39. For testing, a ResMed Quattro Mirage full face mask of medium size was used. An initial bilevel pressure of 10 over 5 was applied to the circuit and the lights were extinguished. 7 hours and 49 minutes of data were reviewed. There were 242 minutes of sleep identified. Sleep latency was normal at 7 minutes. REM sleep was delayed at 377 minutes. Sleep architecture remained severely fragmented with one REM cycle late in the study. Overall sleep efficiency 52.2%. The patient's electrocardiogram showed atrial fibrillation with a controlled ventricular response rate of 78 beats per minute. EEG showed normal waveforms for awake and sleep. Respiratory events were quite persisted prompting an increase in pressure therapy. Central apneas prompted the addition of a backup rate. No ideal pressure can be identified during the study, however, on a bilevel pressure of 14 over 10 and a backup rate of 12, the respiratory events that did persist were hypopneic and were not associated with oxygen desaturations below 88%. It was on this pressure the patient was able to sleep through REM. Some limb activity was again noted on this study, however arousal index remained low at 1.7. IMPRESSION: There is severe complex obstructive sleep apnea syndrome (G47.33, G47.31). RECOMMENDATIONS: Based on the results of the titration, a bilevel pressure therapy at 14 inspiratory over expiratory of 10 with a backup rate of 12 revealed best control of the patient's respiratory disruption.
== END ==
LOC: M SLEEP 23:11
PROVIDERS: ATTEND Internal Medicine Pulmonary Disease
DX: G47.33 Obstructive sleep apnea (adult) (pediatric) (principal)

== ENCOUNTER → 2018-12-08 | Outpatient (CLI) | payer SELFPAY ==
[2018-12-08 11:35] LABS: BLOOD UREA NITROGEN 14 MG/DL (7-18); CALCIUM LEVEL 8.5 MG/DL (8.8-10.2); CARBON DIOXIDE LEVEL 33 MEQ/L (21-32); CHLORIDE LEVEL 106 MEQ/L (98-107); CREATININE FOR GFR 0.94 MG/DL (0.70-1.30); GLOMERULAR FILTRATION RATE > 60.0 (>49); GLUCOSE, FASTING 88 MG/DL (70-100); POTASSIUM SERUM 3.9 MEQ/L (3.5-5.1); SODIUM LEVEL 142 MEQ/L (136-145)
== END ==
LOC: M LAB 10:21
PROVIDERS: ATTEND Physician Assistant
DX: I50.9 Heart failure, unspecified (principal); R60.0 Localized edema

== ENCOUNTER 2018-12-27 16:33 | Inpatient (IN) | payer SELFPAY ==
[~2018-12-27] VITALS: Ht 170.2 cm; Wt 105.6 kg
--- NOTE | 2018-12-27 17:22 | REP ---
Chest one-view HISTORY: Cough Comparison: 08/30/2018 Patchy density is present in the right lower lobe consistent with atelectasis or infiltrate decreased compared to the previous study. The left lung is clear. The heart is normal in size. The pulmonary vasculature is normal in appearance. Impression: Right lower lobe atelectasis or infiltrate decreased compared to the previous study. Electronically Signed by Masood Alcocer MD 12/27/2018 05:14 P
[2018-12-27 17:32] LABS: VENOUS BASE EXCESS -2.9 (-2.0-2.0); VENOUS O2 SATURATION 83.2 % (60.0-80.0); VENOUS PARTIAL PRESSURE CO2 38.6 mmHg (38.0-50.0); VENOUS PARTIAL PRESSURE O2 54.1 mmHg (30.0-50.0); VENOUS PH 7.373 UNITS (7.330-7.430); VENOUS STANDARD HCO3 21.8 MEQ/L; VENOUS TOTAL CO2 23.1 MEQ/L (24.0-28.0)
[2018-12-27 17:41] LABS: BASO % 0.4 % (0.0-1.0); HEMATOCRIT 42.6 % (42.0-52.0); HEMOGLOBIN 13.8 g/dl (13.5-17.5); LYMPH # 1.6 10^3/uL (1.5-4.5); LYMPH % 14.6 % (24.0-44.0); MEAN CORPUSCULAR HEMOGLOBIN 29.5 pg (27.0-33.0); MEAN CORPUSCULAR HGB CONC 32.4 g/dl (32.0-36.5); MONO # 0.7 10^3/uL (0.0-0.8); MONO % 6.9 % (0.0-5.0); NEUTROPHILS # 8.3 10^3/uL (1.8-7.7); NEUTROPHILS % 77.6 % (36.0-66.0); PLATELET COUNT, AUTOMATED 173 10^3/uL (150-450); RED BLOOD COUNT 4.68 10^6/uL (4.30-6.10); WHITE BLOOD COUNT 10.7 10^3/uL (4.0-10.0)
[2018-12-27 18:17] LABS: ALBUMIN 3.1 GM/DL (3.2-5.2); ALT/SGPT 39 U/L (12-78); BILIRUBIN,DIRECT 0.3 MG/DL (0.0-0.2); BLOOD UREA NITROGEN 20 MG/DL (7-18); CALCIUM LEVEL 8.5 MG/DL (8.8-10.2); CARBON DIOXIDE LEVEL 28 MEQ/L (21-32); CHLORIDE LEVEL 106 MEQ/L (98-107); CPK CREATINE PHOSPHOKINASE 88 U/L (39-308); CREATININE FOR GFR 1.09 MG/DL (0.70-1.30); GLOMERULAR FILTRATION RATE > 60.0 (>49); GLUCOSE, FASTING 94 MG/DL (70-100); MB/CK RELATIVE INDEX 7.16 (< OR =4); NT-PRO BNP 9213 PG/ML (<125); POTASSIUM SERUM 4.3 MEQ/L (3.5-5.1); SODIUM LEVEL 141 MEQ/L (136-145); THYROXINE (T4) 9.1 UG/DL (4.5-12.0); TOTAL PROTEIN 6.9 GM/DL (6.4-8.2); TROPONIN I 1.69 NG/ML (< 0.10)
[2018-12-27] MEDS ORDERED: FUROSEMIDE 40 MG/4 ML VIAL (J1940) IV ONE (19:00)
[2018-12-27] MEDS ORDERED: FURO40TA2 PO (19:01)
[2018-12-27] MEDS ORDERED: SM P99TA PO (19:01)
[2018-12-27] MEDS ORDERED: ASPI81TA85 PO (19:01)
[2018-12-27] MEDS ORDERED: COEN100T PO (19:01)
[2018-12-27] MEDS ORDERED: METO100T5 PO (19:01)
[2018-12-27] MEDS ORDERED: HYDR-643 PO (19:01)
[2018-12-27] MEDS ORDERED: ASPIRIN 325 MG TAB PO ONE (20:15)
[2018-12-27] MEDS: METOPROLOL 5 MG/5 ML VIAL IV SCH ×2 (20:30→21:31)
[2018-12-27] MEDS ORDERED: MORPHINE 2 MG/ML 1ML SYRINGE (J2270) IV PRN (21:00)
[2018-12-27] MEDS ORDERED: NITROGLYCERIN 0.4 MG SUBL TABLET SL PRN (21:00)
[2018-12-27] MEDS ORDERED: CLOPIDOGREL 300 MG TAB (PLAVIX) PO ONE (21:00)
[2018-12-27 21:15] LABS: CPK CREATINE PHOSPHOKINASE 68 U/L (39-308); MB/CK RELATIVE INDEX 7.35 (< OR =4)
--- NOTE | 2018-12-27 21:18 | HPEPDOC ---
General Date of Admission 12/27/2018 Date of Service: Dec 27, 2018 Attending Physician: MORTEZA HERNANDEZ MD Chief Complaint The patient is a 68-year-old male admitted with a reason for visit of SOB. History of Present Illness Patient is a 68-year-old male, past medical history significant for paroxysmal atrial fibrillation, CAD status post PTCA, presenting to the emergency room on account of shortness of breath. Patient reports he had chest pain yesterday with radiation to his left arm and back. Chest pain". After he taken his dose of metoprolol. He felt the chest pain and shortness of breath was caused by his metoprolol. He called his primary care physician who thought he may be having a heart attack and advice patient come to the emergency room. On admit. Initial troponin was elevated at 1.69. Patient was also in atrial fibrillation with rapid ventricular response. On evaluation of patient, it was recommended that given his complaint of chest pain and elevated troponin he had likely had a cardiac event and would need transfer to a tertiary facility for further evaluation and possible management. . Patient and family discussed at length with this provider and at the time of this documentation are still trying to decide if they want to go to another facility for further evaluation. On assessment, he denied further episodes of chest pain, shortness of breath was still persisting. Home Medications Scheduled Aspirin (Aspir 81) 81 Mg Tablet.dr, 162 MG PO DAILY, (Reported) Furosemide (Furosemide) 40 Mg Tablet, 40 MG PO DAILY, (Reported) Metoprolol Tartrate (Metoprolol Tartrate) 100 Mg Tablet, 100 MG PO BID, (Reported) Potassium Gluconate (Potassium) 99 Mg Tablet, 198 MG PO DAILY, (Reported) Ubidecarenone (Coenzyme Q10) 100 Mg Tablet, 100 MG PO TID, (Reported) Scheduled PRN Hydroxyzine HCl (Hydroxyzine HCl) 10 Mg Tablet, 10 MG PO QHS PRN for ANXIETY, (Reported) Allergies Coded Allergies: Penicillins (Verified Allergy, Intermediate, hives, 12/27/18) Past Medical History Medical History CAD Paroxysmal atrial fibrillation Obesity Systolic heart failure Ischemic Cardiomyopathy EF 30% Surgical History T&A Social History * Smoker: Denies Alcohol: Denies Drugs: denies A-FIB/CHADSVASC A-FIB History Current/History of A-Fib/PAF?: Yes Current PO Anticoag Therapy: No Review of Systems Other systems A 10 point pertinent review of systems was completed, negative except as stated in the history of presenting illness. Physical Examination Other physical findings GENERAL: obese, looks uncomfortable SKIN : Warm, dry intact HEENT: Atraumatic, normocephalic, PERRL, moist mucous membrane CARDIOVASCULAR: irregular rate and rhythm, S1S2, no JVD, BLE edema, distal pulses not palpable RESP: CTAB, no accessory muscle use noted ABDOMEN: BS+ non distended non tender MS: no joint deformities NEURO: Alert and oriented x 3, CN2-12 grossly intact PSYCH: no anxiety or agitation, appropriate mood and affect. Vital Signs Vital Signs Date Time Temp Pulse Resp B/P (MAP) Pulse Ox O2 Delivery O2 Flow Rate FiO2 12/27/18 20:48 104 98 12/27/18 20:30 120/82 (95) 12/27/18 18:48 19 12/27/18 16:33 98.8 Room Air Laboratory Data Labs 24H Laboratory Tests 2 12/27/18 16:45: Immature Granulocyte % (Auto) 0.5, White Blood Count 10.7H, Red Blood Count 4.68, Hemoglobin 13.8, Hematocrit 42.6, Mean Corpuscular Volume 91.0, Mean Corpuscular Hemoglobin 29.5, Mean Corpuscular Hemoglobin Concent 32.4, Red Cell Distribution Width 15.9H, Platelet Count 173, Neutrophils (%) (Auto) 77.6H, Lymphocytes (%) (Auto) 14.6L, Monocytes (%) (Auto) 6.9H, Eosinophils (%) (Auto) 0.0, Basophils (%) (Auto) 0.4, Neutrophils # (Auto) 8.3H, Lymphocytes # (Auto) 1.6, Monocytes # (Auto) 0.7, Eosinophils # (Auto) 0.0, Basophils # (Auto) 0.0, Nucleated Red Blood Cells % (auto) 0.0, Anion Gap 7L, Glomerular Filtration Rate > 60.0, Lactic Acid Level 2.3*H, Calcium Level 8.5L, Aspartate Amino Transf (A ST/SGOT) 42H, Alanine Aminotransferase (ALT/SGPT) 39, Alkaline Phosphatase 53, Total Bilirubin 1.0, Direct Bilirubin 0.3H, Total Creatine Kinase 88, Creatine Kinase MB 6.0H, Creatine Kinase MB Relative Index 7.16H, Troponin I 1.69*H, BE-Mje-X-Type Natriuretic Peptide 9213H, Total Protein 6.9, Albumin 3.1L, Albumin/Globulin Ratio 0.82L, Thyroid Stimulating Hormone (TSH) 2.990, Thyroxine (T4) 9.1 12/27/18 17:10: Blood Gas Bicarbonate Standard 21.8, Venous Blood pH 7.373, Venous Blood Partial Pressure CO2 38.6, Venous Blood Partial Pressure O2 54.1H, Venous Blood Total Carbon Dioxide 23.1L, Venous Blood HCO3 22.0L, Venous Blood Oxygen Saturation 83.2H, Venous Blood Base Excess -2.9L 12/27/18 20:37: CBC/BMP Laboratory Tests 12/27/18 16:45 Red Blood Count 4.68, Mean Corpuscular Volume 91.0, Mean Corpuscular Hemoglobin 29.5, Mean Corpuscular Hemoglobin Concent 32.4, Red Cell Distribution Width 15.9 H, Neutrophils (%) (Auto) 77.6 H, Lymphocytes (%) (Auto) 14.6 L, Monocytes (%) (Auto) 6.9 H, Eosinophils (%) (Auto) 0.0, Basophils (%) (Auto) 0.4, Neutrophils # (Auto) 8.3 H, Lymphocytes # (Auto) 1.6, Monocytes # (Auto) 0.7, Eosinophils # (Auto) 0.0, Basophils # (Auto) 0.0 Microbiology Microbiology 12/27/18 Blood Culture, Received Pending 12/27/18 Respiratory Virus Panel (PCR) ([facility]) - Final, Complete Assessment/Plan NSTEMI -known CAD history with stenting -Lovenox 1 mg/kg -Transfer to tertiary facility has been suggested. Patient is deliberating his options at this time with family -Aspirin, statin, and he beta paco therapy -Nitrostat as needed for chest pain -Supplemental oxygen and oxygen saturation monitoring to keep greater than 92% -A call was placed to cardiology without success- will need to be consulted in the morning Paroxysmal atrial fibrillation -Currently in RVR, likely due to underlying AR -Continue metoprolol -Fully anticoagulated with Lovenox at this time Chronic systolic heart failure -Currently, patient is not in acute heart failure -Shortness of breath, likely angina equivalent -Continue fluid restriction, electrolyte monitoring, diuresis - Plan / VTE VTE Prophylaxis Ordered?: Yes GME ATTESTATION GME ATTESTATION My faculty preceptor for this patient encounter was physically present during the encounter and was fully available. All aspects of the patient interview, examination, medical decision making process, and medical care plan development were reviewed and approved by the faculty preceptor. The faculty preceptor is aware and concurs with the plan as stated in the body of this note and will attest to such by his/her cosignature. ATTENDING NOTE ATTENDING ATTESTATION: I performed a history and physical examination of the patient and discuss the management with the resident/TRAFFIC OR SYSTEM DISPATCHER. I reviewed the resident's note and agree with the documented findings and plan of care. APRIL TAYLOR Dec 27, 2018 21:18 MORTEZA HERNANDEZ MD Dec 28, 2018 19:11
[2018-12-27 21:24] LABS: CREATININE FOR GFR 1.08 MG/DL (0.70-1.30); GLOMERULAR FILTRATION RATE > 60.0 (>49)
[2018-12-27] MEDS: ENOXAPARIN 100MG/1ML SYRINGE (J1650) SC SCH (21:31)
[2018-12-27 22:50] VITALS: BP 111/80
[2018-12-27] MEDS: hydrOXYzine 10 MG TAB PO PRN (23:41)
[2018-12-27 23:59] VITALS: BP 107/67
[2018-12-28 04:00] VITALS: BP 103/61
[2018-12-28 05:06] LABS: HEMOGLOBIN 13.2 g/dl (13.5-17.5); MEAN CORPUSCULAR HEMOGLOBIN 29.7 pg (27.0-33.0); MEAN CORPUSCULAR VOLUME 90.1 fl (80.0-96.0); PLATELET COUNT, AUTOMATED 164 10^3/uL (150-450); RED BLOOD COUNT 4.44 10^6/uL (4.30-6.10); WHITE BLOOD COUNT 8.8 10^3/uL (4.0-10.0)
[2018-12-28 05:31] LABS: BLOOD UREA NITROGEN 20 MG/DL (7-18); CALCIUM LEVEL 8.2 MG/DL (8.8-10.2); CARBON DIOXIDE LEVEL 29 MEQ/L (21-32); CHLORIDE LEVEL 107 MEQ/L (98-107); CPK CREATINE PHOSPHOKINASE 57 U/L (39-308); CREATININE FOR GFR 1.02 MG/DL (0.70-1.30); GLOMERULAR FILTRATION RATE > 60.0 (>49); GLUCOSE, FASTING 95 MG/DL (70-100); MB/CK RELATIVE INDEX 5.61 (< OR =4); POTASSIUM SERUM 3.4 MEQ/L (3.5-5.1); SODIUM LEVEL 142 MEQ/L (136-145); TROPONIN I 1.16 NG/ML (< 0.10)
--- NOTE | 2018-12-28 07:51 | ECGEPIP ---
[facility] - ED Test Date: 2018-12-27 Pat Name: RODY OVIEDO Department: Room: - Gender: Male Hide Buffer: : 1950 Requested By: Mi Marroquin Order Number: [id number] Reading MD: Mi Marroquin Measurements Intervals [place] Rate: 120 P: ID: [id number] QRS: QRSD: 101 T: 113 QT: 335 QTc: 475 Interpretive Statements ATRIAL FIBRILLATION WITH RAPID VENTRICULAR RESPONSE INCOMPLETE RIGHT BUNDLE BRANCH BLOCK INFERIOR MYOCARDIAL INFARCTION, PROBABLY OLD ANTEROSEPTAL MYOCARDIAL INFARCTION, PROBABLY OLD MODERATE T-WAVE ABNORMALITY, CONSIDER ISCHEMIA INCREASED RATE 08/30/18 Electronically Signed on 12-28-2018 7:51:32 EDT by Mi Marroquin
[2018-12-28 08:00] VITALS: BP 107/66
[2018-12-28] MEDS: ATORVASTATIN 20 MG TAB PO SCH (09:28)
[2018-12-28] MEDS: ENOXAPARIN 100MG/1ML SYRINGE (J1650) SC SCH ×2 (09:28→20:00)
[2018-12-28] MEDS: ASPIRIN 325 MG TAB PO SCH (09:29)
[2018-12-28] MEDS: PANTOPRAZOLE 40MG TAB (PROTONIX) PO SCH (09:29)
[2018-12-28 12:00] VITALS: BP 115/78
[2018-12-28] MEDS ORDERED: SLF 3 ML SYR IV PRN (12:45)
[2018-12-28] MEDS: SLF 3 ML SYR IV SCH ×2 (14:00→21:11)
[2018-12-28 16:00] VITALS: BP 108/71
[2018-12-28] MEDS: POTASSIUM CHLORIDE 10 MEQ SR TABLET PO SCH (18:45)
[2018-12-28] MEDS ORDERED: METOPROLOL TART 25 MG TABLET PO ONE (19:45)
[2018-12-28 20:00] VITALS: BP 114/70
[2018-12-28] MEDS: METOPROLOL TART 50 MG TAB PO SCH (21:00)
[2018-12-28] MEDS: hydrOXYzine 10 MG TAB PO PRN (21:11)
--- NOTE | 2018-12-28 22:02 | IPNPDOC ---
Subjective Date Seen The patient was seen on 12/28/18. Subjective Chief Complaint/HPI Pt was seen and examined at bedside. Pt is awake alert and oriented. No acute distress. Pt denies any chest pain or palpitations. Denies any lightheadedness. Telemetry reveals tachycardia at 110-120, Max 150. Pt refusing any invasive cardiac intervention. General: Reports: Normal Appetite; Denies: Chills, Night Sweats, Fatigue, Malaise Constitutional: Denies: Chills, Fever, Night Sweats Eyes: Denies: Pain, Vision change ENT: Denies: Head Aches, Ear Pain, Dysphagia Skin: Denies: Rash, Lesions, Breakdown Pulmonary: Denies: Dyspnea, Cough Cardiovascular: Denies: Chest Pain, Palpitations, Orthopnea, Paroxysmal Noc. Dyspnea, Lt Headedness Gastrointestinal: Denies: Nausea, Vomiting, Abdominal Pain, Diarrhea, Constipation Objective Physical Examination General Exam: Positive: Alert, No Acute Distress Eye Exam: Positive: PERRLA, Conjunctiva & lids normal, EOMI; Negative: Sclera icteric ENT Exam: Positive: Atraumatic, Mucous membr. moist/pink, Pharynx Normal Neck Exam: Positive: Supple; Negative: JVD, thyromegaly Chest Exam: Positive: Clear to auscultation, Normal air movement Abdomen Exam: Positive: Normal bowel sounds, Soft; Negative: Tenderness, Hepatospenomegaly Other physical findings S1 S2 on cardiac auscultation. No murmur appreciated. increased HR appreciated. Assessment /Plan Assessment Pt is 68 y/o M with extensive cardiac history with ischemic cardiomyopathy EF30%, s/p cardiac intervention in the past admitted due to elevated troponin, pt was started on anticoagulation with Lovenox. Upon admission , in view of need for invasive cardiac intervention pt was advised to be transferred to other facility. Pt and family wished not to proceed for further invasive intervention. Currently pt denies any active chest pain , however is persistently tachycardic. Will increase metoprolol standing dose and monitor closely. Cardiology consult requested. Plan/VTE VTE Prophylaxis Ordered?: Yes Disposition Home when medically stable. VS, I&O, 24H, Fishbone Vital Signs/I&O Vital Signs Date Time Temp Pulse Resp B/P (MAP) Pulse Ox O2 Delivery O2 Flow Rate FiO2 12/28/18 21:00 112 104/70 12/28/18 20:00 97.8 20 99 2.0 12/27/18 16:33 Room Air I&O- Last 24 Hours up to 6 AM 12/28/18 06:00 Intake Total 0 ml Output Total 150 ml Balance -150 ml Laboratory Data 24H LABS Laboratory Tests 2 12/28/18 04:55: Nucleated Red Blood Cells % (auto) 0.0, Anion Gap 6L, Glomerular Filtration Rate > 60.0, Blood Urea Nitrogen 20H, Creatinine 1.02, Sodium Level 142, Potassium Level 3.4#L, Chloride Level 107, Carbon Dioxide Level 29, Calcium Level 8.2L, Total Creatine Kinase 57, Creatine Kinase MB 3.0, Creatine Kinase MB Relative Index 5.61H, Troponin I 1.16H CBC/BMP Laboratory Tests 12/28/18 04:55 Red Blood Count 4.44, Mean Corpuscular Volume 90.1, Mean Corpuscular Hemoglobin 29.7, Mean Corpuscular Hemoglobin Concent 33.0, Red Cell Distribution Width 15.7 H, Calcium Level 8.2 L, Total Creatine Kinase 57 Microbiology Microbiology 12/27/18 Blood Culture - Preliminary, Resulted No growth after 24 hours . All specim... 12/27/18 Blood Culture - Preliminary, Resulted No growth after 24 hours . All specim... 12/27/18 Respiratory Virus Panel (PCR) ([facility]) - Final, Complete MARQUES JACOBSEN MD Dec 28, 2018 22:02
[2018-12-28 23:59] VITALS: BP 94/68
[2018-12-29 04:00] VITALS: BP 125/77
[2018-12-29] MEDS: SLF 3 ML SYR IV SCH ×3 (04:37→20:29)
[2018-12-29 05:20] LABS: BASO # 0.1 10^3/uL (0.0-0.2); HEMATOCRIT 39.8 % (42.0-52.0); HEMOGLOBIN 12.9 g/dl (13.5-17.5); LYMPH # 1.9 10^3/uL (1.5-4.5); LYMPH % 27.8 % (24.0-44.0); MEAN CORPUSCULAR HGB CONC 32.4 g/dl (32.0-36.5); MEAN CORPUSCULAR VOLUME 92.6 fl (80.0-96.0); MONO # 0.6 10^3/uL (0.0-0.8); MONO % 8.9 % (0.0-5.0); NEUTROPHILS # 4.2 10^3/uL (1.8-7.7); PLATELET COUNT, AUTOMATED 159 10^3/uL (150-450); WHITE BLOOD COUNT 6.8 10^3/uL (4.0-10.0)
[2018-12-29 05:59] LABS: ALBUMIN 2.6 GM/DL (3.2-5.2); ALT/SGPT 30 U/L (12-78); BILIRUBIN,TOTAL 0.9 MG/DL (0.2-1.0); BLOOD UREA NITROGEN 22 MG/DL (7-18); CALCIUM LEVEL 8.3 MG/DL (8.8-10.2); CARBON DIOXIDE LEVEL 28 MEQ/L (21-32); CHLORIDE LEVEL 108 MEQ/L (98-107); CREATININE FOR GFR 0.94 MG/DL (0.70-1.30); GLOMERULAR FILTRATION RATE > 60.0 (>49); GLUCOSE, FASTING 92 MG/DL (70-100); POTASSIUM SERUM 3.2 MEQ/L (3.5-5.1); SODIUM LEVEL 142 MEQ/L (136-145); TOTAL PROTEIN 6.1 GM/DL (6.4-8.2); TROPONIN I 0.86 NG/ML (< 0.10)
[2018-12-29 08:00] VITALS: BP 133/90
[2018-12-29] MEDS: ATORVASTATIN 20 MG TAB PO SCH (08:52)
[2018-12-29] MEDS: ASPIRIN 325 MG TAB PO SCH (08:52)
[2018-12-29] MEDS: POTASSIUM CHLORIDE 10 MEQ SR TABLET PO SCH ×2 (08:52→20:29)
[2018-12-29] MEDS: PANTOPRAZOLE 40MG TAB (PROTONIX) PO SCH (08:53)
[2018-12-29] MEDS: METOPROLOL TART 50 MG TAB PO SCH ×2 (08:53→20:30)
[2018-12-29] MEDS: ENOXAPARIN 100MG/1ML SYRINGE (J1650) SC SCH ×2 (08:53→20:29)
[2018-12-29] MEDS: FUROSEMIDE 40 MG/4 ML VIAL (J1940) IV SCH (08:53)
[2018-12-29 12:00] VITALS: BP 113/72
[2018-12-29 16:00] VITALS: BP 98/60
[2018-12-29 20:00] VITALS: BP 133/67
[2018-12-29] MEDS: hydrOXYzine 10 MG TAB PO PRN (21:42)
[2018-12-29] MEDS: ACETAMINOPHEN TAB 650MG DOSE (2X325MG) PO PRN (23:35)
[2018-12-29 23:59] VITALS: BP 137/90
[2018-12-30 04:00] VITALS: BP 125/90
--- NOTE | 2018-12-30 04:04 | IPNPDOC ---
Text Note Date of Service The patient was seen on 12/29/18. NOTE Chief Complaint/HPI Pt was seen and examined at bedside. Denies any chest pain, any dyspnea, dizziness or syncope. Denies palpitations. Discussed at length with pt and present in the room importance of following up with cardiology for further ischemic workup in view of pt cardiomyopathy with EF 30% and atrial fibrillation with recent NSTEMI, pt wishes not to proceed with any further cardiology workup. Discussed with Dr. Fisher over phone regarding current update in pt status. General: Reports: Normal Appetite; Denies: Chills, Night Sweats, Fatigue, Malaise Constitutional: Denies: Chills, Fever, Night Sweats Eyes: Denies: Pain, Vision change ENT: Denies: Head Aches, Ear Pain, Dysphagia Skin: Denies: Rash, Lesions, Breakdown Pulmonary: Denies: Dyspnea, Cough Cardiovascular: Denies: Chest Pain, Palpitations, Orthopnea, Paroxysmal Noc. Dyspnea, Lt Headedness Gastrointestinal: Denies: Nausea, Vomiting, Abdominal Pain, Diarrhea, Constipation Physical Examination General Exam: Positive: Alert, No Acute Distress Eye Exam: Positive: PERRLA, Conjunctiva & lids normal, EOMI; Negative: Sclera icteric ENT Exam: Positive: Atraumatic, Mucous membr. moist/pink, Pharynx Normal Neck Exam: Positive: Supple; Negative: JVD, thyromegaly Chest Exam: Positive: Clear to auscultation, Normal air movement Abdomen Exam: Positive: Normal bowel sounds, Soft; Negative: Tenderness, Hepatospenomegaly Other physical findings S1 S2 on cardiac auscultation. No murmur appreciated. increased HR appreciated. Assessment Pt is 68 y/o M with extensive cardiac history with ischemic cardiomyopathy EF30%, s/p cardiac intervention in the past admitted due to elevated troponin, pt was started on anticoagulation with Lovenox. Upon admission , in view of need for invasive cardiac intervention pt was advised to be transferred to other facility. Pt and family wished not to proceed for further invasive intervention. Currently pt denies any active chest pain , however is persistently tachycardic. Will increase metoprolol standing dose and monitor closely. Cardiology consult requested. Pt HR has been stable. No active chest pain. No new events in telemetry. Pt can be dc in AM with f/u with cardiology as outpt. Vital Signs Date Time Temp Pulse Resp B/P (MAP) Pulse Ox O2 Delivery O2 Flow Rate FiO2 12/30/18 00:00 2.0 12/29/18 23:59 97.9 126 20 137/90 (106) 99 2.0 12/29/18 20:30 119 133/67 12/29/18 20:00 2.0 12/29/18 20:00 98.2 98 18 133/67 (89) 97 2.0 12/29/18 16:00 98.6 98 20 98/60 (73) 99 1.0 12/29/18 12:00 98.8 98 20 113/72 (86) 99 1.0 12/29/18 08:53 110 133/90 12/29/18 08:50 1.0 12/29/18 08:00 97.8 101 18 133/90 (104) 100 2.0 Intake & Output 12/30/18 06:00 Intake Total 350 ml Output Total 350 ml Balance 0 ml Laboratory Tests 12/29/18 04:48: White Blood Count 6.8, Red Blood Count 4.30, Hemoglobin 12.9L, Hematocrit 39.8L, Mean Corpuscular Volume 92.6, Mean Corpuscular Hemoglobin 30.0, Mean Corpuscular Hemoglobin Concent 32.4, Red Cell Distribution Width 15.8H, Platelet Count 159, Neutrophils (%) (Auto) 62.0, Lymphocytes (%) (Auto) 27.8, Monocytes (%) (Auto) 8.9H, Eosinophils (%) (Auto) 0.0, Basophils (%) (Auto) 1.0, Neutrophils # (Auto) 4.2, Lymphocytes # (Auto) 1.9, Monocytes # (Auto) 0.6, Eosinophils # (Auto) 0.0, Basophils # (Auto) 0.1, Immature Granulocyte % (Auto) 0.3, Nucleated Red Blood Cells % (auto) 0.0, Blood Urea Nitrogen 22H, Creatinine 0.94, Sodium Level 142, Potassium Level 3.2L, Chloride Level 108H, Carbon Dioxide Level 28, Calcium Level 8.3L, Aspartate Amino Transf (AST/SGOT) 22, Alanine Aminotransferase (ALT/SGPT) 30, Alkaline Phosphatase 44L, Total Bilirubin 0.9, Total Protein 6.1L, Albumin 2.6L, Anion Gap 6L, Glomerular Filtration Rate > 60.0, Fasting Glucose 92, Troponin I 0.86#H, Albumin/Globulin Ratio 0.74L Microbiology 12/27/18 Respiratory Virus Panel (PCR) ([facility]) - Final, Complete Current Medications Medications (Trade) Dose Ordered Sig/Chery Route PRN Reason Start Time Stop Time Status Last Admin Dose Admin Acetaminophen (Tylenol Tab) 650 mg Q4H PRN PO PAIN OR FEVER 12/27/18 21:00 12/29/18 23:35 650 MG Aspirin (Aspirin) 325 mg DAILY PO 12/28/18 09:00 12/29/18 08:52 325 MG Atorvastatin Calcium (Lipitor) 80 mg DAILY PO 12/28/18 09:00 12/29/18 08:52 80 MG Enoxaparin Sodium (Lovenox) 100 mg Q12H SC 12/27/18 21:00 12/29/18 20:29 100 MG Furosemide (LASIX injection) 40 mg DAILY IV 12/29/18 09:00 12/29/18 08:53 40 MG Hydroxyzine HCl (Atarax) 10 mg QHS PRN PO Anxiety 12/27/18 23:15 12/29/18 21:42 10 MG Metoprolol Tartrate (Lopressor) 50 mg BID PO 12/28/18 21:00 12/29/18 20:30 50 MG Pantoprazole Sodium (Protonix) 40 mg DAILY PO 12/28/18 09:00 12/29/18 08:53 40 MG Potassium Chloride (Micro-K Extencaps) 40 meq BID PO 12/28/18 18:15 12/29/18 20:29 40 MEQ Sodium Chloride (Saline Lock Flush) 2 ml SLF IV 12/28/18 14:00 12/29/18 20:29 2 ML VS,Fishbone, I+O VS, Fishbone, I+O Laboratory Tests 12/29/18 04:48 Red Blood Count 4.30, Mean Corpuscular Volume 92.6, Mean Corpuscular Hemoglobin 30.0, Mean Corpuscular Hemoglobin Concent 32.4, Red Cell Distribution Width 15.8 H, Neutrophils (%) (Auto) 62.0, Lymphocytes (%) (Auto) 27.8, Monocytes (%) (Auto) 8.9 H, Eosinophils (%) (Auto) 0.0, Basophils (%) (Auto) 1.0, Neutrophils # (Auto) 4.2, Lymphocytes # (Auto) 1.9, Monocytes # (Auto) 0.6, Eosinophils # (Auto) 0.0, Basophils # (Auto) 0.1, Calcium Level 8.3 L, Aspartate Amino Transf (AST/SGOT) 22, Alanine Aminotransferase (ALT/SGPT) 30, Alkaline Phosphatase 44 L, Total Bilirubin 0.9, Total Protein 6.1 L, Albumin 2.6 L Vital Signs Date Time Temp Pulse Resp B/P (MAP) Pulse Ox O2 Delivery O2 Flow Rate FiO2 12/30/18 00:00 2.0 12/29/18 23:59 97.9 126 20 137/90 (106) 99 12/27/18 16:33 Room Air I&O- Last 24 Hours up to 6 AM 12/30/18 06:00 Intake Total 350 ml Output Total 350 ml Balance 0 ml MARQUES JACOBSEN MD Dec 30, 2018 04:04
[2018-12-30] MEDS: SLF 3 ML SYR IV SCH ×3 (04:25→22:14)
[2018-12-30 05:39] LABS: HEMATOCRIT 41.8 % (42.0-52.0); HEMOGLOBIN 13.6 g/dl (13.5-17.5); MEAN CORPUSCULAR HEMOGLOBIN 30.4 pg (27.0-33.0); MEAN CORPUSCULAR HGB CONC 32.5 g/dl (32.0-36.5); MEAN CORPUSCULAR VOLUME 93.3 fl (80.0-96.0); PLATELET COUNT, AUTOMATED 158 10^3/uL (150-450); RED BLOOD COUNT 4.48 10^6/uL (4.30-6.10); WHITE BLOOD COUNT 7.4 10^3/uL (4.0-10.0)
[2018-12-30 08:00] VITALS: BP 134/66
[2018-12-30] MEDS ORDERED: PROPRANOLOL 10 MG TAB PO ONE (09:00)
[2018-12-30] MEDS: ATORVASTATIN 20 MG TAB PO SCH (09:17)
[2018-12-30] MEDS: PANTOPRAZOLE 40MG TAB (PROTONIX) PO SCH (09:17)
[2018-12-30] MEDS: CARVedilol 6.25 MG TAB PO SCH ×2 (09:17→21:16)
[2018-12-30] MEDS: ASPIRIN 325 MG TAB PO SCH (09:17)
[2018-12-30] MEDS: POTASSIUM CHLORIDE 10 MEQ SR TABLET PO SCH ×2 (09:18→21:15)
[2018-12-30] MEDS: FUROSEMIDE 40 MG/4 ML VIAL (J1940) IV SCH (09:18)
[2018-12-30 12:00] VITALS: BP 112/77
[2018-12-30 16:00] VITALS: BP 109/77
[2018-12-30 20:00] VITALS: BP 132/75
[2018-12-30] MEDS: ACETAMINOPHEN TAB 650MG DOSE (2X325MG) PO PRN (21:26)
--- NOTE | 2018-12-30 23:21 | IPNPDOC ---
Text Note Date of Service The patient was seen on 12/30/18. NOTE Pt was seen and examined at bedside. Denies any chest pain, any dyspnea, dizzin ess or syncope. Denies palpitations. Discussed at length with pt and present in the room importance of following up with cardiology for further ischemic workup in view of pt cardiomyopathy with EF 30% and atrial fibrillation with recent NSTEMI, pt wishes not to proceed with any further cardiology workup. Discussed pt with Dr. Fisher while present in the unit to adjust cardiac meds. Pt can not tolerate metoprolol since he gets headache and can not sleep, substituted with Coreg. Subjective: General: Reports: Normal Appetite; Denies: Chills, Night Sweats, Fatigue, Malaise Constitutional: Denies: Chills, Fever, Night Sweats Eyes: Denies: Pain, Vision change ENT: Denies: Head Aches, Ear Pain, Dysphagia Skin: Denies: Rash, Lesions, Breakdown Pulmonary: Denies: Dyspnea, Cough Cardiovascular: Denies: Chest Pain, Palpitations, Orthopnea, Paroxysmal Noc. Dyspnea, Lt Headedness Gastrointestinal: Denies: Nausea, Vomiting, Abdominal Pain, Diarrhea, Constipation Physical Examination General Exam: Positive: Alert, No Acute Distress Eye Exam: Positive: PERRLA, Conjunctiva & lids normal, EOMI; Negative: Sclera icteric ENT Exam: Positive: Atraumatic, Mucous membr. moist/pink, Pharynx Normal Neck Exam: Positive: Supple; Negative: JVD, thyromegaly Chest Exam: Positive: Clear to auscultation, Normal air movement Abdomen Exam: Positive: Normal bowel sounds, Soft; Negative: Tenderness, Hepatospenomegaly Other physical findings S1 S2 on cardiac auscultation. No murmur appreciated. increased HR appreciated. Vital Signs Date Time Temp Pulse Resp B/P (MAP) Pulse Ox O2 Delivery O2 Flow Rate FiO2 12/31/18 00:00 2.0 12/30/18 21:16 119 132/73 12/30/18 20:00 2.0 12/30/18 20:00 97.9 113 18 132/75 (94) 98 12/30/18 16:00 2.0 12/30/18 16:00 97.8 114 18 109/77 (88) 98 1.0 12/30/18 12:00 2.0 12/30/18 12:00 97.1 114 20 112/77 (89) 99 1.0 12/30/18 09:17 109 134/66 12/30/18 08:50 2.0 12/30/18 08:00 98.0 109 20 134/66 (88) 99 1.0 12/30/18 04:00 97.2 77 20 125/90 (102) 98 2.0 12/30/18 04:00 2.0 Intake & Output 12/31/18 06:00 Intake Total 420 ml Output Total 900 ml Balance -480 ml Laboratory Tests 12/30/18 04:55: White Blood Count 7.4, Red Blood Count 4.48, Hemoglobin 13.6, Hematocrit 41.8L, Mean Corpuscular Volume 93.3, Mean Corpuscular Hemoglobin 30.4, Mean Corpuscular Hemoglobin Concent 32.5, Red Cell Distribution Width 15.8H, Platelet Count 158, Nucleated Red Blood Cells % (auto) 0.0 Microbiology 12/27/18 Respiratory Virus Panel (PCR) ([facility]) - Final, Complete Current Medications Medications (Trade) Dose Ordered Sig/Chery Route PRN Reason Start Time Stop Time Status Last Admin Dose Admin Acetaminophen (Tylenol Tab) 650 mg Q4H PRN PO PAIN OR FEVER 12/27/18 21:00 12/30/18 21:26 650 MG Aspirin (Aspirin) 325 mg DAILY PO 12/28/18 09:00 12/30/18 09:17 325 MG Atorvastatin Calcium (Lipitor) 80 mg DAILY PO 12/28/18 09:00 12/30/18 09:17 80 MG Carvedilol (COReg) 6.25 mg BID PO 12/30/18 09:00 12/30/18 21:16 6.25 MG Hydroxyzine HCl (Atarax) 10 mg QHS PRN PO Anxiety 12/27/18 23:15 12/29/18 21:42 10 MG Pantoprazole Sodium (Protonix) 40 mg DAILY PO 12/28/18 09:00 12/30/18 09:17 40 MG Potassium Chloride (Micro-K Extencaps) 40 meq BID PO 12/28/18 18:15 12/30/18 21:15 40 MEQ Sodium Chloride (Saline Lock Flush) 2 ml SLF IV 12/28/18 14:00 12/30/18 22:14 2 ML Assessment Pt is 68 y/o M with extensive cardiac history with ischemic cardiomyopathy EF30%, s/p cardiac intervention in the past admitted due to elevated troponin, pt was started on anticoagulation with Lovenox. Upon admission , in view of need for invasive cardiac intervention pt was advised to be transferred to other facility. Pt and family wished not to proceed for further invasive intervention. Currently pt denies any active chest pain. -DC Lovenox, start Eliquis 5mg BID in view of NL kidney function -Start Coreg 6.25 BID -Monitor tele closely -Dr. Fisher recommends to monitor overnight , possible DC in AM VS,Fishbone, I+O VS, Fishbone, I+O Laboratory Tests 12/30/18 04:55 Red Blood Count 4.48, Mean Corpuscular Volume 93.3, Mean Corpuscular Hemoglobin 30.4, Mean Corpuscular Hemoglobin Concent 32.5, Red Cell Distribution Width 15.8 H Vital Signs Date Time Temp Pulse Resp B/P (MAP) Pulse Ox O2 Delivery O2 Flow Rate FiO2 12/30/18 21:16 119 132/73 12/30/18 20:00 2.0 12/30/18 20:00 97.9 18 98 12/27/18 16:33 Room Air I&O- Last 24 Hours up to 6 AM 12/30/18 06:00 Intake Total 550 ml Output Total 650 ml Balance -100 ml MARQUES JACOBSEN MD Dec 30, 2018 23:21
[2018-12-31 04:00] VITALS: BP 113/66
[2018-12-31 05:49] LABS: BLOOD UREA NITROGEN 27 MG/DL (7-18); CARBON DIOXIDE LEVEL 26 MEQ/L (21-32); CHLORIDE LEVEL 111 MEQ/L (98-107); CPK CREATINE PHOSPHOKINASE 46 U/L (39-308); CREATININE FOR GFR 1.08 MG/DL (0.70-1.30); GLOMERULAR FILTRATION RATE > 60.0 (>49); GLUCOSE, FASTING 110 MG/DL (70-100); MAGNESIUM LEVEL 2.1 MG/DL (1.8-2.4); MB/CK RELATIVE INDEX 4.35 (< OR =4); POTASSIUM SERUM 4.3 MEQ/L (3.5-5.1); SODIUM LEVEL 143 MEQ/L (136-145); TROPONIN I 0.21 NG/ML (< 0.10)
[2018-12-31] MEDS: SLF 3 ML SYR IV SCH ×2 (05:49→12:56)
[2018-12-31 08:00] VITALS: BP 122/70
[2018-12-31] MEDS: ASPIRIN 325 MG TAB PO SCH (08:32)
[2018-12-31] MEDS: PANTOPRAZOLE 40MG TAB (PROTONIX) PO SCH (08:32)
[2018-12-31] MEDS: ATORVASTATIN 20 MG TAB PO SCH (08:33)
[2018-12-31] MEDS: CARVedilol 6.25 MG TAB PO SCH (08:33)
[2018-12-31] MEDS: POTASSIUM CHLORIDE 10 MEQ SR TABLET PO SCH (08:34)
--- NOTE | 2018-12-31 08:52 | CR ---
DATE OF CONSULTATION: 12/31/2018 REFERRING PHYSICIAN: Dr. Kev Clemens REASON FOR CONSULTATION: Recent acute myocardial infarction. HISTORY OF PRESENT ILLNESS: 68-year-old male well known by the service with multiple recent hospitalizations here at [facility], came to the ER this time on 12/27/2018 upon recommendation of his primary because of shortness of breath and chest pain. He was found to have an elevated serum troponin consistent with a [id number] myocardial infarction. The patient was admitted here for further management and monitoring, he has refused to be transferred for cardiac catheterization. Cardiology consult was called for further evaluation. I have seen Mr. Marco Downey in the past when he has come to the office on a couple of occasions. He does have a history of noncompliance with followup recommendations and with treatment/medications. When I saw him in the vacuum spindle sander hours on 12/30/2018, his was at bedside. He stated that he continues to have shortness of breath with activities even walking from his bed to go to the bathroom in his room at the hospital. He denies any chest pain. He continues to complain of rapid heart rate. He also is complaining of bleeding at the site of the injection of the Lovenox. He denies any syncope or near syncope, but does complain of dizziness and lightheadedness each times he takes the metoprolol. He has a cough but denies any hemoptysis. He does have some persistent bilateral pedal edema. He has no focal manifestation. He denies any fever or chills. PAST MEDICAL HISTORY: He has a past medical history positive for coronary artery disease with percutaneous transluminal coronary angioplasty (PTCA)/stent implantation in 2009. At that time he was vacationing in [place], continued to secondary to left ventricular systolic dysfunction due to ischemic cardiomyopathy, hypertension, hyperlipidemia, arthritis, sleep apnea and last week he was diagnosed with atrial fibrillation. There is no history of diabetes mellitus, kidney disease, thyroid disorders, liver disease, . There is no manifestation of TIA/CVA. MEDICATIONS AT HOME: - aspirin 81 mg by mouth - Lasix 40 mg by mouth daily - metoprolol tartrate 100 mg by mouth twice a day - KCl 99 mg by mouth daily - coenzyme Q10 100 mg by mouth three times a day - as needed hydroxyzine 10 mg by mouth at sleep for anxiety CURRENT MEDICATIONS - Lasix 40 mg IV daily - KCl 40 mg by mouth twice a day - pantoprazole 40 mg by mouth daily - atorvastatin 80 mg by mouth daily - aspirin 325 mg by mouth daily - hydroxyzine 10 mg by mouth at sleep as needed - Tylenol 650 mg every 4 hours as needed for pain or fever - Lovenox 100 mg subcutaneous every 12 hours - metoprolol tartrate 60 mg by mouth twice a day - nitroglycerin sublingual as needed for chest pain - morphine sulfate 2 mg IV as needed PAST SURGICAL HISTORY Positive for surgery done for gallstone and sciatica. FAMILY HISTORY Positive for coronary artery disease. He does have family history positive for premature coronary artery disease (CAD). SOCIAL HISTORY The patient lives with his and he denies any smoking or alcohol abuse. He has . He denies any illicit drugs. ALLERGIES NO KNOWN DRUG ALLERGIES. PHYSICAL EXAMINATION The patient he is alert and awake, in no acute distress but appeared to be mildly short of breath during the interrogation. Vital signs: His vital signs when I saw him revealed a blood pressure of 134/66 with a pulse of 109, respirations 20 and his maximum temperature is 98 degrees Fahrenheit with an oxygenation of 99% on 1 liter nasal cannula. His fluid balance for 12/29/2018 was 125 mL. Head: Atraumatic. Neck: Supple without extended jugular. Lungs: Reveal minimal crackles at the bases. Heart: Reveals irregular heart sounds without gallops. The point of maximal impulse (PMI) is displaced inferiorly and laterally. There is no rub. Abdomen: Soft, obese and nontender. Extremities reveal +1 to +2 bilateral lower lobe edema. Neurological: Grossly is negative for focal deficit. LABORATORY DATA CBC revealed a WBC of 7.4, hemoglobin 13.6, hematocrit 41.8 and platelet 158,000. BMP revealed a sodium of 142, potassium 3.2, chloride 108. CO2 28, BUN 22, creatinine 0.94, GFR more than 60. Fasting glucose 92, calcium 8.3. Liver enzymes reveal a total bilirubin of 0.9, AST 22, ALT 30, alkaline phosphatase 44, total protein 6.1, albumin 2.6. Troponin today was 0.86. Electrocardiogram on admission revealed atrial fibrillation at 120 beats per minute with diffuse nonspecific ST-T abnormalities as well as findings related to probably prior anteroseptal infarct. There may be also findings consistent with prior inferior wall infarct. Chest x-ray on admission revealed right lower lobe atelectasis. No cardiomegaly reported. IMPRESSION 1. [id number]-CX-[id number] myocardial infarction. History of CAD and percutaneous transluminal coronary angioplasty/stent. 2. Congestive heart failure secondary to left ventricular systolic dysfunction due to ischemic cardiomyopathy. 3. Atrial fibrillation that has been chronic and persistent. 4. Hypertension. 5. Hyperlipidemia. 6. Obstructive sleep apnea. Mr. Marco Downey as mentioned above has a history of noncompliance with medication. We are going to try to optimize his medication so his condition may be improved so he can be discharged home. The case was discussed with the hospitalist covering him and the metoprolol, it seems he does not tolerate it well and it was discontinued. He was started on carvedilol at the small dose of 6.25 mg by mouth twice a day and he will be monitored. If he can tolerate it today, tomorrow, he will be started on an CATALINA inhibitor and ramipril would be a good choice for him, it will not drop much his blood pressure. The Lovenox was discontinued, he has been bleeding at the site of the injection. He will be started on apixaban. He will continue the aspirin and the statin. I also will increase his furosemide because he is still retaining a lot of fluids. As mentioned above he has refused more treatment such as cardiac catheterization to assess his current coronary anatomy. He will continue to use his C-PAP machine. It was a pleasure to participate in the care of Mr. Marco Downey for his underlying cardiac condition. I will continue to monitor him along with you and as outpatient as needed. Please do not hesitate to call if any questions.
[2018-12-31] MEDS ORDERED: FUROSEMIDE 40 MG/4 ML VIAL (J1940) IV SCH (09:00)
[2018-12-31] MEDS ORDERED: APIXABAN 5 MG TAB (ELIQUIS) PO SCH (09:00)
[2018-12-31] MEDS ORDERED: ALTA1CAP PO (10:28)
[2018-12-31] MEDS ORDERED: CARV6.25 PO (10:28)
[2018-12-31] MEDS ORDERED: ATOR1TAB21 PO (10:28)
[2018-12-31] MEDS ORDERED: ELIQ5TAB PO (10:28)
[2018-12-31 12:00] VITALS: BP 140/60
[2018-12-31] MEDS ORDERED: RAMIPRIL 1.25 MG CAP PO SCH (12:00)
[2018-12-31] MEDS ORDERED: ALPRAZolam 0.25 MG TAB PO ONE (12:30)
[2018-12-31 12:56] VITALS: BP 140/60
--- NOTE | 2018-12-31 17:21 | ECGEPIP ---
[facility] Test Date: 2018-12-31 Pat Name: RODY OVIEDO Department: Room: [place] [address] Gender: Male Ward Supervisor: YNES : 1950 Requested By: OLU OLVERA Order Number: [id number] Reading MD: Cedric Oleary Measurements Intervals [place] Rate: 83 P: AR: -1 QRS: QRSD: 113 T: 147 QT: 393 QTc: 463 Interpretive Statements ATRIAL FIBRILLATION MODERATE INTRAVENTRICULAR CONDUCTION DELAY ST DEVIATION AND MODERATE T-WAVE ABNORMALITY, CONSIDER LATERAL ISCHEMIA &/Or digoxin effect, Leftward axis Electronically Signed on 12-31-2018 17:20:47 EDT by Cedric Oleary
--- NOTE | 2019-01-02 06:38 | DS.PDOC ---
Discharge Summary General Date of Admission Dec 27, 2018 at 20:54 Discharge Summary PROCEDURES PERFORMED DURING STAY: [None]. ADMITTING DIAGNOSES: 1. . DISCHARGE DIAGNOSES: 1. . COMPLICATIONS/CHIEF COMPLAINT: Nstemi. HISTORY OF PRESENT ILLNESS: . HOSPITAL COURSE: . DISCHARGE MEDICATIONS: Please see below. ALLERGIES: Please see below. PHYSICAL EXAMINATION ON DISCHARGE: VITAL SIGNS: Please see below. GENERAL: HEENT: NECK: CARDIOVASCULAR EXAMINATION: RESPIRATORY EXAMINATION: ABDOMINAL EXAMINATION: EXTREMITIES: SKIN: NEUROLOGICAL EXAMINATION: PSYCHIATRIC EXAMINATION: LABORATORY DATA: Please see below. IMAGING: PROGNOSIS: ACTIVITY: [As tolerated]. DIET: DISCHARGE PLAN: DISPOSITION: Home, Self-Care. DISCHARGE INSTRUCTIONS: 1. . ITEMS TO FOLLOWUP ON ON OUTPATIENT: 1. . DISCHARGE CONDITION: [Stable]. TIME SPENT ON DISCHARGE: Greater than minutes. Vital Signs/I&Os Vital Signs Date Time Temp Pulse Resp B/P (MAP) Pulse Ox O2 Delivery O2 Flow Rate FiO2 12/31/18 12:56 140/60 12/31/18 12:00 97.2 134 20 99 2.0 12/27/18 16:33 Room Air Microbiology Microbiology 12/27/18 Blood Culture - Final, Complete NO GROWTH AFTER 5 DAYS 12/27/18 Blood Culture - Final, Complete NO GROWTH AFTER 5 DAYS 12/27/18 Respiratory Virus Panel (PCR) (SANIYA) - Final, Complete Discharge Medications Scheduled Apixaban (Eliquis) 5 Mg Tablet, 5 MG PO BID for Atrial Fibrillation Aspirin (Aspir 81) 81 Mg Tablet.dr, 162 MG PO DAILY, (Reported) Atorvastatin Calcium (Atorvastatin Calcium) 20 Mg Tablet, 80 MG PO DAILY Carvedilol (Carvedilol) 6.25 Mg Tablet, 6.25 MG PO BID Furosemide (Furosemide) 40 Mg Tablet, 40 MG PO DAILY, (Reported) Ramipril (Altace) 1.25 Mg Capsule, 1.25 MG PO DAILY Ubidecarenone (Coenzyme Q10) 100 Mg Tablet, 100 MG PO TID, (Reported) Scheduled PRN Hydroxyzine HCl (Hydroxyzine HCl) 10 Mg Tablet, 10 MG PO QHS PRN for ANXIETY, (Reported) Allergies Coded Allergies: Penicillins (Verified Allergy, Intermediate, hives, 12/27/18) MARQUES JACOBSEN MD Jan 02, 2019 06:38
== END 2018-12-31 14:31 | disposition home or self-care (01) | DRG 190 ==
LOC: M ED 16:33 → M ED INP 20:54 → M PCU 22:50
PROVIDERS: ADMIT Student in an Organized Health Care Education/Training Program; ATTEND Hospitalist
DX: I21.4 Non-ST elevation (NSTEMI) myocardial infarction (principal); I11.0 Hypertensive heart disease with heart failure; I48.1 Persistent atrial fibrillation; I50.22 Chronic systolic (congestive) heart failure; I48.2 Chronic atrial fibrillation; I25.10 Atherosclerotic heart disease of native coronary artery without angina pectoris; E78.5 Hyperlipidemia, unspecified; G47.33 Obstructive sleep apnea (adult) (pediatric); Z91.19 Patient's noncompliance with other medical treatment and regimen; Z79.82 Long term (current) use of aspirin; Z79.899 Other long term (current) drug therapy; Z88.0 Allergy status to penicillin; I25.5 Ischemic cardiomyopathy

== ENCOUNTER → 2019-03-21 | Outpatient (CLI) | payer SELFPAY ==
[~2019-03-21] MED LIST changes: +ALTA1CAP PO; +ASPI81TA85 PO; +ATOR1TAB21 PO; +CARV6.25 PO; +COEN100T PO; +FURO40TA2 PO; +HYDR-643 PO; +METO100T5 PO; +SM P99TA PO
[2019-03-21 10:14] LABS: BASO # 0.1 10^3/uL (0.0-0.2); BASO % 0.8 % (0.0-1.0); HEMATOCRIT 41.2 % (42.0-52.0); HEMOGLOBIN 13.5 g/dl (13.5-17.5); LYMPH # 1.7 10^3/uL (1.5-4.5); LYMPH % 23.4 % (24.0-44.0); MEAN CORPUSCULAR HEMOGLOBIN 30.5 pg (27.0-33.0); MEAN CORPUSCULAR HGB CONC 32.8 g/dl (32.0-36.5); MEAN CORPUSCULAR VOLUME 93.2 fl (80.0-96.0); MONO # 0.8 10^3/uL (0.0-0.8); MONO % 10.1 % (0.0-5.0); NEUTROPHILS # 4.9 10^3/uL (1.8-7.7); NEUTROPHILS % 65.4 % (36.0-66.0); PLATELET COUNT, AUTOMATED 125 10^3/uL (150-450); RED BLOOD COUNT 4.42 10^6/uL (4.30-6.10); WHITE BLOOD COUNT 7.4 10^3/uL (4.0-10.0)
[2019-03-21 10:28] LABS: ALBUMIN 3.2 GM/DL (3.2-5.2); ALT/SGPT 26 U/L (12-78); BILIRUBIN,TOTAL 1.1 MG/DL (0.2-1.0); BLOOD UREA NITROGEN 12 MG/DL (7-18); CALCIUM LEVEL 9.1 MG/DL (8.8-10.2); CARBON DIOXIDE LEVEL 31 MEQ/L (21-32); CHLORIDE LEVEL 108 MEQ/L (98-107); CHOLESTEROL LEVEL 90 MG/DL (<200); CHOLESTEROL RISK RATIO 2.195 (<5); CREATININE FOR GFR 0.85 MG/DL (0.70-1.30); GLOMERULAR FILTRATION RATE > 60.0 (>49); GLUCOSE, FASTING 83 MG/DL (70-100); HDL CHOLESTEROL 41 MG/DL (>40); LDL CHOLESTEROL 41 MG/DL (<100); NON-HDL-C 49 MG/DL; POTASSIUM SERUM 3.7 MEQ/L (3.5-5.1); SODIUM LEVEL 144 MEQ/L (136-145); TOTAL PROTEIN 6.2 GM/DL (6.4-8.2); TRIGLYCERIDES LEVEL 42 MG/DL (<150)
[2019-03-22 08:41] LABS: LDL DIRECT 53 mg/dL (0-99)
== END ==
LOC: M LAB 09:27
PROVIDERS: ATTEND Nurse Practitioner Family
DX: I50.9 Heart failure, unspecified (principal)